=== PATIENT | male | born 1930 | race African-American/Black ===

== ENCOUNTER 2019-06-28 13:05 | Emergency (ER) | payer MEDICARE, OTHER ==
--- NOTE | 2019-06-28 13:59 | CT ---
CT BRAIN WITHOUT CONTRAST: HISTORY: Altered mental status. FINDINGS: Comparison is made with the exam of 10/15/2016. Changes of cortical atrophy and chronic small-vessel ischemic disease are again seen. The ventricula r size is stable and the basilar cisterns are patent. No evidence of acute infarct, hemorrhage, midl ine shift, or abnormal extraaxial fluid collections are noted. The bony calvarium is intact. There is mucosal disease of the ethmoid air cells. The mastoid air cells are well aerated and clear. IMPRESSION: No CT evidence of acute intracranial process. POS: [facility]
[2019-06-28 14:10] LABS: #Eosinphils 0.2 thou/uL (0.0-0.7); #Lymphocytes 1.6 thou/uL (1.20-3.40); #Monocytes 0.5 thou/uL (0.11-0.59); #Neutrophils 3.5 thou/uL (1.40-6.50); %Basophils 0.4 % (0.0-1.0); %Eosinophils 2.7 % (0.0-10.0); %Lymphocytes 27.6 % (21.0-51.0); %Monocytes 7.9 % (0.0-10.0); %Neutrophils 61.4 % (42.0-75.0); Hemoglobin 10.5 g/dL (14.0-18.0); Mean Corpuscular HGB CONC 32.2 g/dL (32.0-36.0); Mean Corpuscular Hemoglobin 28.1 pg (27.0-31.0); Mean Corpuscular Volume 87.4 fL (78.0-98.0); Mean Platelet Volume 6.8 fL (7.4-10.4); Platelet Count 259 thou/uL (130-400); RBC Distribution Width 14.8 % (11.5-14.5); Red Blood Cell (RBC) Count 3.74 mill/uL (4.70-6.10); White Blood Cell (WBC) Count 5.7 thou/uL (4.8-10.8)
[2019-06-28] MEDS ORDERED: Furosemide 40 MG/4 ML VIAL ONE (14:57)
[2019-06-28 15:41] LABS: Bacteria/HPF None Seen HPF (None Seen); Bilirubin Negative (Negative); Blood, Urine Trace (Negative); Clarity Clear (Clear); Glucose, Urine (Dipstick) Normal (Negative); Leukocyte Negative Leu/uL (Negative); Nitrite Negative (Negative); Protein, Urine (Dipstick) Negative (Neg-Trace); RBC/HPF 0-3 HPF (0-3); Squamous Epithelial 0-3 HPF (0-3); Urobilinogen Normal mg/dL (Less than 2); WBC/HPF 0-3 HPF (0-3)
== END 2019-06-28 18:12 ==
LOC: ERS 13:05
DX: I11.0 Hypertensive heart disease with heart failure (principal); I50.32 Chronic diastolic (congestive) heart failure
CPT/HCPCS: 36415; 70450; 81003; 81015; 82550; 83880; 84484; 85025; 93005; 96374; J1940

== ENCOUNTER 2019-09-14 12:11 | Emergency (ER) | payer MEDICARE, OTHER ==
--- NOTE | 2019-09-14 12:52 | RAD ---
Left shoulder 2 views: 09/14/2019 12:31 PM CLINICAL INDICATION: Left shoulder pain after fall. COMPARISON: None. FINDINGS: Bones: There is a mildly displaced obliquely oriented fracture involving the distal clavicle head. Th e medial fracture fragment is displaced cranial approximately 9 mm. There is diffuse osteopenia. Glenohumeral joint: Normal alignment. AC joint: Normal alignment. Visualized lung: Clear. Soft tissues: Within normal limits. IMPRESSION: Mildly displaced distal left clavicle fracture.
--- NOTE | 2019-09-14 12:55 | RAD ---
Chest AP view INDICATION: Fall with left shoulder pain COMPARISON: October 07, 2016 FINDINGS: Lungs: Chronic lung changes are stable. Cardiac silhouette: The cardiomediastinal silhouette appears within normal limits. Pulmonary vasculature: Normal Pleural spaces: No pleural effusion or pneumothorax is demonstrated. Upper abdomen: No abnormality seen. Osseous structures: There is a mildly displaced distal left clavicle fracture which is new from the prior exam. There is diffuse osteopenia. Additional findings: None. IMPRESSION: 1. Acute mildly displaced left distal clavicle fracture. 2. No acute cardiopulmonary abnormality.
[2019-09-14 13:20] LABS: Mean Corpuscular HGB CONC 33.9 g/dL (32.0-36.0); Mean Corpuscular Hemoglobin 29.7 pg (27.0-31.0); Mean Corpuscular Volume 87.7 fL (78.0-98.0); Mean Platelet Volume 7.9 fL (7.4-10.4); Platelet Count 192 thou/uL (130-400); RBC Distribution Width 17.5 % (11.5-14.5); Red Blood Cell (RBC) Count 3.37 mill/uL (4.70-6.10); White Blood Cell (WBC) Count 5.3 thou/uL (4.8-10.8)
[2019-09-14 13:37] LABS: ALT (SGPT) Less than 7 U/L (8-55); AST (SGOT) 15 U/L (5-34); Albumin 3.6 g/dL (3.4-4.8); Alkaline Phosphatase 65 U/L (40-110); Anion Gap 13 mmol/L (10-20); BUN (Urea Nitrogen) 20 mg/dL (8.4-25.7); Bilirubin, Total 0.4 mg/dL (0.2-1.2); Calc. Creatinine Clearance 0 mL/min (70-130); Calcium 9.1 mg/dL (7.8-10.44); Carbon Dioxide 23 mmol/L (23-31); Chloride 105 mmol/L (98-107); Estimated GFR-MDRD 74; Globulin 4.2 g/dL (2.4-3.5); Glucose 101 mg/dL (83-110); Protein, Total 7.8 g/dL (5.8-8.1); Sodium 137 mmol/L (136-145)
[2019-09-14 13:41] LABS: Anisocytosis SLIGHT = 6-15 cells (100X) (0-5/hpf); Band 8 % (5-11); Eosinophils 6 % (0-10); Lymphocytes 26 % (21-51); MDiff Complete? YES; Monocytes 7 % (0-10); Neutrophil 51 % (42-75); Ovalocytes SLIGHT = 2-5 cells (100X) (0-1/hpf); Platelet Morphology Comment Appears Adequate; Polychromasia SLIGHT = 2-3 cells (100X) (0-2/hpf); Reactive Lymphocytes 1 % (0-10)
--- NOTE | 2019-09-14 13:48 | CT ---
EXAM: CT brain without contrast HISTORY: Witnessed fall from a seated position; altered mental status COMPARISON: 06/28/2019 TECHNIQUE: Multiple contiguous axial images were obtained and a CT of the brain without contrast. FINDINGS: There are scattered hypodensities in the subcortical and periventricular white matter consi stent with small vessel ischemic disease. There is no evidence of hydrocephalus, intracranial hemorrhage, or extra-axial fluid collection. The calvarium and overlying soft tissues are unremarkable. The visualized paranasal sinuses and masto id air cells are well aerated. IMPRESSION: No evidence of acute intracranial abnormality
--- NOTE | 2019-09-14 13:51 | CT ---
EXAM: CT of the cervical spine without contrast HISTORY: Witnessed fall with head trauma and neck pain COMPARISON: None TECHNIQUE: Multiple contiguous axial images were obtained in a CT of the cervical spine without contr ast. Sagittal and coronal reformats were performed. FINDINGS: The vertebral bodies demonstrate normal height and alignment without fracture or subluxatio n. Severe degenerative changes are seen throughout the cervical spine with large bulky bridging anterior osteophytes. No prevertebral soft tissue swelling is seen. The posterior facets are well aligned. Normal alignment of the skull base with the cervical spine is seen. The lung apices and cervical soft tissues are unremarkable. IMPRESSION: No evidence of acute osseous abnormality of the cervical spine.
[2019-09-14] MEDS ORDERED: HYDROcodone/Acetaminophen 5/325 mg Tablet ONE (16:03)
== END 2019-09-14 16:58 | disposition home or self-care (01) ==
LOC: ERS 12:11
DX: S42.032A Displaced fracture of lateral end of left clavicle, initial encounter for closed fracture (principal); I10 Essential (primary) hypertension; W18.30XA Fall on same level, unspecified, initial encounter
CPT/HCPCS: 36415; 70450; 71045; 72125; 80053; 84484; 85025; 93005; L0120

== ENCOUNTER 2019-11-07 15:21 | Emergency (ER) | payer MEDICARE, OTHER ==
[2019-11-07 15:58] LABS: #Basophils 0.1 thou/uL (0.0-0.2); #Eosinphils 0.1 thou/uL (0.0-0.7); #Lymphocytes 1.9 thou/uL (1.20-3.40); #Monocytes 0.3 thou/uL (0.11-0.59); %Basophils 1.8 % (0.0-1.0); %Eosinophils 2.2 % (0.0-10.0); %Lymphocytes 43.5 % (21.0-51.0); %Monocytes 7.7 % (0.0-10.0); %Neutrophils 44.8 % (42.0-75.0); Hemoglobin 9.8 g/dL (14.0-18.0); Mean Corpuscular HGB CONC 33.3 g/dL (32.0-36.0); Mean Corpuscular Hemoglobin 29.5 pg (27.0-31.0); Mean Corpuscular Volume 88.8 fL (78.0-98.0); Mean Platelet Volume 8.9 fL (7.4-10.4); Platelet Count 187 thou/uL (130-400); Red Blood Cell (RBC) Count 3.33 mill/uL (4.70-6.10); White Blood Cell (WBC) Count 4.5 thou/uL (4.8-10.8)
--- NOTE | 2019-11-07 16:20 | CT ---
BRAIN CT WITHOUT IV CONTRAST: History: Altered mental status. Comparison: 09-14-2019 FINDINGS: There is atrophy and chronic white matter ischemic change noted. No focal mass or midline shift. No i ntra or extraaxial hemorrhage. Sinuses and mastoids are clear of acute process. IMPRESSION: No significant acute intracranial process. No mass or bleed. Stable atrophy and chronic white matter ischemic change. POS: [facility]
--- NOTE | 2019-11-07 16:40 | RAD ---
CHEST ONE VIEW: History: Dyspnea. Comparison: 09-14-2019 FINDINGS: Mild volume loss in the left lung base, chronic in nature of scarring. No pneumothorax. No effusion. Old left distal clavicular fracture. Pulmonary arteries are dilated. IMPRESSION: No acute intrathoracic abnormality. POS: HOME
[2019-11-07 16:46] LABS: ALT (SGPT) Less than 7 U/L (8-55); AST (SGOT) 19 U/L (5-34); Albumin 3.6 g/dL (3.4-4.8); Alkaline Phosphatase 73 U/L (40-110); Anion Gap 13 mmol/L (10-20); BUN (Urea Nitrogen) 19 mg/dL (8.4-25.7); Bilirubin, Total 0.2 mg/dL (0.2-1.2); Calc. Creatinine Clearance 0 mL/min (70-130); Calcium 8.5 mg/dL (7.8-10.44); Carbon Dioxide 22 mmol/L (23-31); Chloride 105 mmol/L (98-107); Estimated GFR-MDRD 68; Globulin 4.3 g/dL (2.4-3.5); Glucose 98 mg/dL (83-110); Potassium 4.8 mmol/L (3.5-5.1); Protein, Total 7.9 g/dL (5.8-8.1); Sodium 135 mmol/L (136-145)
== END 2019-11-07 20:33 | disposition home or self-care (01) ==
LOC: ERS 15:21
DX: R06.02 Shortness of breath (principal); I11.0 Hypertensive heart disease with heart failure; I50.9 Heart failure, unspecified; J44.9 Chronic obstructive pulmonary disease, unspecified
CPT/HCPCS: 70450; 71045; 80053; 85025; 93005; 94760

== ENCOUNTER 2020-01-24 10:54 | Emergency (ER) | payer MEDICARE, OTHER ==
--- NOTE | 2020-01-24 12:09 | CT ---
CT BRAIN NONCONTRAST: DATE: 01/24/2020 HISTORY: 89-year-old male status post acute head trauma from fall FINDINGS: There is no evidence of acute intra-axial or extra-axial hemorrhage. There is no midline shift or any other mass effect. There is no extra-axial fluid collection. There is no evidence of obstructive hydrocephalus. Calvarium is intact. There is diffuse brain parenchymal volume loss. There are low att enuation areas in the white matter. These are nonspecific, but in a patient of this age, they are probably chronic ischemic white matter changes due to microvascular atherosclerosis. IMPRESSION: 1) No acute intracranial findings. 2) involutional changes and chronic ischemic white matter changes.
--- NOTE | 2020-01-24 12:14 | CT ---
CT CERVICAL SPINE NONCONTRAST: DATE: 01/24/2020 HISTORY: cervical trauma: 89-year-old male status post fall FINDINGS: There are no jumped or perched facets. There is no evidence of acute fracture. The vertebral body hei ghts are maintained. There is no prevertebral soft tissue swelling. There is diffuse, severe osteopenia. There are bulky bridging osteophytes protruding into the prevertebral space at all levels from C3-4 through C7-T1. This causes ankylosis at all levels from C4-5 through C7-T1, resulting in a rigid cervical spine. These factors increase the risk for injury with minor trauma. The bulky bridg ing osteophytes anteriorly displace the posterior pharyngeal wall at C3-4. This can cause dysphagia. IMPRESSION: 1. No evidence of acute fracture or acute traumatic subluxation. 2. DISH (diffuse idiopathic skeletal hyperostosis). See above comments.
--- NOTE | 2020-01-24 12:44 | CT ---
EXAM: CT Thoracic Spine WO Con PROVIDED CLINICAL HISTORY: Injury after a fall from standing position. Tenderness to right paraspinal region midthoracic back. COMPARISON: None FINDINGS: There is anterior osseous bridging and fusion of the lower cervical vertebral bodies. Calcification o f the anterior longitudinal ligament is seen involving the thoracic spine. The vertebral body heights of the thoracic spine are within normal limits. No fracture or subluxation is seen involving the thoracic spine. Scattered degenerative changes are seen. No high-grade central canal or neural foraminal narrowing is seen throughout the thoracic spine. Visualized posteromedial ribs demonstrate no fracture. The paravertebral soft tissues have a normal appearance. Vascular calcifications are seen in thoracic and abdominal aorta. There is incomplete visualization o f the superior aspect of an infrarenal abdominal aortic aneurysm which measures 5.5 cm in maximal transverse dimension. The maximum transverse dimension on prior CT abdomen in 2017 was 5.1 cm. Calcified mediastinal and right hilar lymph nodes are present with calcified granuloma right lung bas e. There is suggestion of mild chronic interstitial lung changes at each lung base. IMPRESSION: 1. Incomplete imaging of an infrarenal abdominal aortic aneurysm. This aneurysm does measure larger i n size compared to study in 2017. 2. Mild degenerative changes in the thoracic spine, but no fracture or subluxation is identified.
== END 2020-01-24 13:57 | disposition home or self-care (01) ==
LOC: ERS 10:54
DX: S29.012A Strain of muscle and tendon of back wall of thorax, initial encounter (principal); I11.0 Hypertensive heart disease with heart failure; I50.9 Heart failure, unspecified; J44.9 Chronic obstructive pulmonary disease, unspecified; W18.30XA Fall on same level, unspecified, initial encounter
CPT/HCPCS: 70450; 72125; 72128; 94760

== ENCOUNTER 2020-03-26 16:29 | Inpatient (IN) | payer MEDICARE, MEDICAID, OTHER ==
[2020-03-26 17:19] LABS: #Monocytes 0.3 thou/uL (0.11-0.59); #Neutrophils 4.7 thou/uL (1.40-6.50); %Basophils 0.8 % (0.0-1.0); %Eosinophils 0.6 % (0.0-10.0); %Lymphocytes 16.3 % (21.0-51.0); %Monocytes 5.1 % (0.0-10.0); %Neutrophils 77.2 % (42.0-75.0); Hemoglobin 10.6 g/dL (14.0-18.0); Mean Corpuscular HGB CONC 32.6 g/dL (32.0-36.0); Mean Corpuscular Hemoglobin 29.1 pg (27.0-31.0); Mean Corpuscular Volume 89.4 fL (78.0-98.0); Mean Platelet Volume 7.6 fL (7.4-10.4); Platelet Count 185 thou/uL (130-400); RBC Distribution Width 15.5 % (11.5-14.5); Red Blood Cell (RBC) Count 3.62 mill/uL (4.70-6.10); White Blood Cell (WBC) Count 6.1 thou/uL (4.8-10.8)
--- NOTE | 2020-03-26 17:24 | RAD ---
PORTABLE CHEST: History: Syncope Comparison: 11-07-2019 FINDINGS: Heart size is within normal limits. There is some atherosclerotic changes to the aorta. The lungs are clear of any infiltrative process. IMPRESSION: No active intrathoracic disease. POS: OFF
[2020-03-26 17:40] LABS: ALT (SGPT) Less than 7 U/L (8-55); AST (SGOT) 15 U/L (5-34); Albumin 4.2 g/dL (3.4-4.8); Alkaline Phosphatase 85 U/L (40-110); Anion Gap 16 mmol/L (10-20); BUN (Urea Nitrogen) 30 mg/dL (8.4-25.7); Bilirubin, Total 0.5 mg/dL (0.2-1.2); CK (CPK) 80 U/L (30-200); Calc. Creatinine Clearance 0 mL/min (70-130); Calcium 9.4 mg/dL (7.8-10.44); Carbon Dioxide 16 mmol/L (23-31); Chloride 110 mmol/L (98-107); Estimated GFR-MDRD 33; Globulin 4.1 g/dL (2.4-3.5); Glucose 150 mg/dL (83-110); Protein, Total 8.3 g/dL (5.8-8.1); Sodium 138 mmol/L (136-145)
--- NOTE | 2020-03-26 18:42 | CT ---
CT BRAIN PERFORMED WITHOUT CONTRAST ENHANCEMENT: History: Altered mental status Comparison: 01-24-2020 FINDINGS: There is marked ventricular and sulcal prominence and chromic white matter change. There are no signs of intracerebral hemorrhage or extraaxial fluid collections. Mastoid air cells and visualized sinuse s are clear. IMPRESSION: No acute intracranial abnormalities. POS: OFF
--- NOTE | 2020-03-26 19:58 | PDOC.FPRHP ---
- History of Present Illness Chief Complaint: Dehydration/AMS History of Present Illness: This is an 89 y/o M who presented to the ED today after sitting out in the sun from approximately 9am to 3 pm today. Pt is unable to answer questions about what happened today as he does not remember so HPI is taken from conversation with daughter. Daughter states that today patient was sitting outside in the AM and was told to come inside and drink water around 12 pm. Daughter had to go run errands while granddaughter was at home with patient. When daughter came back home, patient was still sitting outside and when she went to go help him, he was sweating, altered, and was too weak to move on his own, prompting her to call EMS. He was not c/o of CP or SOB when this happened. Pt has been living with daughter and has been under her care for the last couple months. She states that he has a hx of dimentia and his mentation fluctuates but is usually able to have conversations with his family and knows everyone's names. Daughter states that other than taking a "fluid pill" and an "appetite pill" patient does not have any other medical history she is aware of. When EMS arrived his BP was hypotensive in 80/50. At this time he was given 1L of fluid and BP normalized to SBP 120. In the ER his SBP kalee to 167. ED Course: 1.5L NS - Allergies/Adverse Reactions Allergies Allergy/AdvReac Type Severity Reaction Status Date / Time No Known Drug Allergies Allergy Verified 06/09/16 18:13 - Home Medications Medication Instructions Recorded Confirmed Type Furosemide 0.5 tablet PO DAILY 03/26/20 03/26/20 History - History PMHx: -CHF -Dimentia -HTN -HLD -DM2 -Brain tumor? -Diverticulitis -COPD PSHx: -none FHx: -HTN Social: lives with daughter, had hx of 40 pack year smoking, no etoh use, former MJ use - Review of Systems General: denies: fever/chills, fatigue Eyes: denies: vision changes ENT: denies: nasal congestion Respiratory: denies: cough, congestion, shortness of breath Cardiovascular: denies: chest pain, palpitation, edema Gastrointestinal: denies: nausea, vomiting, diarrhea, constipation Genitourinary: denies: dysuria, polyuria, discharge Skin: denies: rashes, lesions, jaundice Musculoskeletal: denies: pain, tenderness, stiffness Neurological: denies: numbness, syncope Psychological: denies: anxiety, depression - Vital signs BP: 167/80, HR 77, RR 17, Temp 98.4, O2 sat 98% on RA - Physical Exam Constitutional: NAD, awake, alert and oriented, well developed HEENT: normocephalic and atraumatic, PERRLA Neck: supple Heart: RRR, normal S1/S2, no murmurs/rubs/gallops Lungs: CTAB, no respiratory distress Abdomen: soft, non-tender, bowel sounds present, no masses/distention Musculoskeletal: normal structure Neurological: no focal deficit, CN II-XII intact Skin: no rash/lesions, other (cap refill > 2 sec, skin tenting) Heme/Lymphatic: no unusual bruising or bleeding, no purpura Psychiatric: other (A&O: to person, able to name president, unable to name year , date, location) FMR H&P: Results - Labs Result Diagrams: 03/26/20 17:00 03/27/20 04:27 Lab results: WBC 6.1 thou/uL (4.8-10.8) 03/26/20 17:00 Hgb 10.6 g/dL (14.0-18.0) L 03/26/20 17:00 Hct 32.4 % (42.0-52.0) L 03/26/20 17:00 MCV 89.4 fL (78.0-98.0) 03/26/20 17:00 Plt Count 185 thou/uL (130-400) 03/26/20 17:00 Neutrophils % 77.2 % (42.0-75.0) H 03/26/20 17:00 Sodium 138 mmol/L (136-145) 03/26/20 17:00 Potassium 4.0 mmol/L (3.5-5.1) 03/26/20 17:00 Chloride 110 mmol/L (98-107) H 03/26/20 17:00 Carbon Dioxide 16 mmol/L (23-31) L 03/26/20 17:00 BUN 30 mg/dL (8.4-25.7) H 03/26/20 17:00 Creatinine 2.29 mg/dL (0.7-1.3) H 03/26/20 17:00 Glucose 150 mg/dL (83-110) H 03/26/20 17:00 Lactic Acid 2.7 mmol/L (0.5-2.2) H 03/26/20 17:00 Calcium 9.4 mg/dL (7.8-10.44) 03/26/20 17:00 Total Bilirubin 0.5 mg/dL (0.2-1.2) 03/26/20 17:00 AST 15 U/L (5-34) 03/26/20 17:00 ALT Less than 7 U/L (8-55) L 03/26/20 17:00 Alkaline Phosphatase 85 U/L (40-110) 03/26/20 17:00 Creatine Kinase 80 U/L (30-200) 03/26/20 17:00 CK-MB (CK-2) 1.0 ng/mL (0-6.6) 03/26/20 17:00 B-Natriuretic Peptide 803.0 pg/mL (0-100) H 03/26/20 17:00 Serum Total Protein 8.3 g/dL (5.8-8.1) H 03/26/20 17:00 Albumin 4.2 g/dL (3.4-4.8) 03/26/20 17:00 - Radiology Interpretation CT scan - head Status: report reviewed by me (no acute intracranial process) Chest x-ray Status: report reviewed by me (no acute cardiopulmonary process) FMR H&P: A/P - Plan 89 y/o M presents today with AMS and weakness. ## Metabolic Encephalopathy -most likely due to slight worsening of mental status on already poor orientation 2/2 hypovolemia and uremia -rehydrate and reassess mental status and symptoms ## KIRSTY 2/2 Volume Depletion -[place] 2.3 -slow hydration with IVF keeping in mind patient's CHF -repeat labs in AM ## Elevated Troponin -initial trop 0.037 -trend -repeat EKG due to indeterminate p waves ## Lactic Acidosis -LA at 2.7 -repeat -most likely due to poor perfusion ## CHF -last echo in 2015 showed grade 1 diastolic dysfuction with EF > 50% -BNP 803 -repeat ECHO -home med lasix ## Dementia -AxO x 2 is his baseline -not on any medications currently CODE: FULL VTE: Heparin DIET: Regular PCP: Kena Dispo: observation, telemetry FMR H&P: Upper Level - Plan Date/Time: 03/26/201951 IAngelo [email or web address], have evaluated this patient and agree with findings/plan as outlined by mba intern resident. Pertinent changes/additions are listed here. 89yo M with pmh of CHF presents after being found outside on a streetside bench confused. He was unable to give any history to EMS or ourselves so what we have is from chart review and discussion with daughter. He wandered outside at 9am and did not come inside until 3pm when he was found to have AMS. Apparently his baseline orientation is x2. He lives with his daughter and granddaughter. On exam he is hypertensive but otherwise has normal and stable vitals. cardiopulmonary exam unremarkable, no LE edema. Cap refill 3 seconds after 1.5L IVF A/P Metabolic Encephalopathy A- likely a slight worsening of mental status on already poor orientation 2/2 hypovolemia and uremia. He is s/p 1.5 L IVF and appears to be slightly dry still. EKG indeterminate though appears to be regular in rate and rhythm, p waves are questionable. indeterminate trop A- likely demand ischemia P- will trend Lactic acidosis A- likely 2/2 hypovolemia P- will trend CHF A- quiescent. Last Echo was in 2016 however showing EF > 50%. BNP today is 800 ( most recent 172) P- will be mindful of fluids and check volume status in AM -TTE -strict I/Os, daily weights KIRSTY A- likely 2/2 hypovolemia P- will volume rescuscitate and recheck -consider further workup if refractory to fluid rescuscitation metabolic acidosis A- slight with bicarb 16, anion gap borderline at 12, likely 2/2 uremia with hypovolemia P- IVF and recheck in AM hypovolemic shock A- BP in 80s/50s when EMS arrived at first, he is now hypertensive and stable after just 1 L IVF P- will monitor vitals Hx of Brain tumor -MD aware, likely primary reason for cognitive difficulties Hx of COPD -MD aware, though daughter denies home meds. f/u outpt CODE: FULL PCP: kena, will transfer care to [facility] in AM if pt stays another night IVF: LR 100/hr DVT ppx: heparin dispo: obs, expect less than 2 midnights Addendum - Attending - Attending Attestation Date/Time: 03/26/202124 I personally evaluated the patient and discussed the management with resident team I agree with the History, Examination, Assessment and Plan documented above with any addition or exceptions noted below. 89 yo male with multiple medical conditions presented by EMS for evaluation of altered mental status Patient outside for several hours without hydration. EMS called. Note to have physical signs of heat stroke including hypotension and tachycardia. Unsure temp. CT Brain without acute findings. CXR stable. - Metabolic encephalopathy: Due to heat stroke with dehydration. Has improved with cooling and IVFs. Continue to monitor overnight. - KIRSTY 2/2 hypovolemia: Mild uremia. BUN/Cr above baseline. Continue current IV fluids. Will slow rate down to 75 mL/hr due to HrEF. Repeat labs in AM. Monitor UOP. - Indeterminate trop: Concern due to past hx of HrEF, HTN, HLD, Dementia and recent heat stroke. Likely related to demand and KIRSTY. Nonspecific changes in EKG but no overt acute ischemic changes. - HrEF: Unsure NYHA class per symptoms. BNP above baseline and likely due to recent fluid challenge. BP now improved. Repeat labs in AM. Repeat NTBNP prior to d/c. Repeat ECHO to evaluate EF and risk for detrimental arrhythmias. Continue to tele to rule out AF. Unsure medications. No signs of congestion at this time. - Hypotension 2/2 hypovolemia: Improved. Lactic acid improved as well. - HTN: Presented with hypotension but now resolved after 1.5 Ls. Restart home meds. Monitor. - Dementia: Lives with daughter. Now back to baseline it appears. Will need refocusing to help with sundowning. - LMWH for VTE - Adjust home meds as needed for co-morbid conditions Review tele monitor. Hold IVFs in AM due to risk for congestion. Repeat NTBNP prior to d/c for prognosis. ECHO today to make sure not at risk for severe arrhythmia. Monitor for sundowning. D/C as soon as safely possibly. Diaz
[2020-03-26 20:26] LABS: Lactic Acid 2.4 mmol/L (0.5-2.2)
[2020-03-26] MEDS ORDERED: Acetaminophen 325 MG TAB PO PRN (21:24)
[2020-03-26 22:12] LABS: Troponin I 0.038 ng/mL (< 0.028)
[2020-03-26 22:31] VITALS: BMI 19.5
[2020-03-26] MEDS: Lactated Ringer's 1,000 ML IV SCH (23:15)
[2020-03-27 00:23] LABS: Troponin I 0.046 ng/mL (< 0.028)
[2020-03-27 04:43] LABS: Lactic Acid 1.5 mmol/L (0.5-2.2)
[2020-03-27 04:47] LABS: Anion Gap 16 mmol/L (10-20); BUN (Urea Nitrogen) 28 mg/dL (8.4-25.7); Calc. Creatinine Clearance 23 mL/min (70-130); Calcium 8.7 mg/dL (7.8-10.44); Carbon Dioxide 13 mmol/L (23-31); Chloride 108 mmol/L (98-107); Estimated GFR-MDRD 42; Glucose 86 mg/dL (83-110); Potassium 4.7 mmol/L (3.5-5.1); Sodium 132 mmol/L (136-145)
[2020-03-27 05:00] LABS: Troponin I 0.047 ng/mL (< 0.028)
--- NOTE | 2020-03-27 07:22 | PDOC.FM ---
- Subjective Subjective: Mr. Onofre is doing well today and has no complaints. He is oriented to person , city, president, and living situation; baseline is A&O x2. He denies dyspnea, SOB, CP. He is sitting in bed at a steep incline; he is unable to endorse/deny orthopnea. - Objective Vital Signs & Weight: Vital Signs (12 hours) Temp Pulse Resp BP Pulse Ox 03/27/20 05:29 98.5 F 73 14 100/59 L 100 03/26/20 22:31 97.1 F L 68 15 158/69 H 98 Weight Weight 59.874 kg I&O: 03/26/20 03/27/20 03/28/20 06:59 06:59 06:59 Intake Total 776 Output Total 0 Balance 776 Result Diagrams: 03/26/20 17:00 03/27/20 04:27 Phys Exam - Physical Examination Constitutional: NAD Respiratory: clear to auscultation bilateral Cardiovascular: RRR, no significant murmur Musculoskeletal: no edema (in b/l UE or LE. Dorsalis pedis pulses 1+ b/l) Psychiatric: normal affect Skin: no rash, normal turgor, cap refill <2 seconds Dx/Plan - Plan Plan: 89 y/o M who presented with AMS and weakness. Metabolic Encephalopathy - Manifestation of AMS likely 2/2 hypovolemia and uremia - Hx of dementia. Baseline is A&O x2 A&O x2 on 03/27 Hypovolemic Shock - BP in 80s/50s when EMS arrived -> SBP 178 in ED after just 1 L IVF -> SBP in normal range - Will monitor vitals - D/c IVFs today KIRSTY - Likely 2/2 volume depletion - Cr 2.3 -> 1.85 - Slow hydration with IVF because of hx of CHF - Cap refill 3s s/p 1.5L IVF -> 1.5s - Skin turgor normal Indeterminate Troponin - Initial trop 0.037 -> 0.046 -> 0.047 -> 0.048 - Trend - Initial EKG showed indeterminate p waves -> Repeat pending Lactic Acidosis - LA at 2.7 -> 1.5 - Likely 2/2 poor perfusion CHF - Last echo in 2015 showed grade 1 diastolic dysfuction with EF > 50% - BNP 803 - Repeat ECHO pending - Hold home lasix Dementia - AxO x 2 is his baseline - Not on any medications currently Metabolic Acidosis - Bicarb 16, AG borderline at 12 -> Repeat 13 and 11, respectively - Likely 2/2 uremia with hypovolemia - IVF Hx of Brain tumor - MD aware - Likely primary reason for cognitive difficulties Hx of COPD - Per chart, denied by daughter - MD aware - F/u outpt CODE: FULL VTE: Heparin DIET: Regular PCP: [facility] Dispo: observation, telemetry Addendum - Attending - Attending Attestation Date/Time: 03/27/20 0936 I personally evaluated the patient and discussed the management with the team. I agree with the History, Examination, Assessment and Plan documented above with any addition or exceptions noted below. Clear heat related illness with no cardiac symptoms. Monitor creatinine as KIRSTY is improving. Monitor Tn although I feel not related to ACS.
[2020-03-27 07:54] LABS: Troponin I 0.048 ng/mL (< 0.028)
[2020-03-27] MEDS: Heparin 5,000 UNITS/ML VIAL SC SCH ×3 (08:49→21:34)
[2020-03-27] MEDS: Lactated Ringer's 1,000 ML IV SCH (08:52)
[2020-03-27 11:40] LABS: SARS-CoV-2 MS2 Positive; SARS-CoV-2 N Gene Negative; SARS-CoV-2 S Gene Negative; SARS-CoV-2 by NAA Not Detected (NotDetected); SARS-CoV-2 orf1ab Negative
[2020-03-27 18:28] LABS: Troponin I 0.024 ng/mL (< 0.028)
--- NOTE | 2020-03-27 21:48 | EKG ---
Test Reason : Blood Pressure : / mmHG Vent. Rate : 061 BPM Atrial Rate : 061 BPM P-R Int : 368 ms QRS Dur : 094 ms QT Int : 432 ms P-R-T Axes : 076 052 064 degrees QTc Int : 434 ms Sinus rhythm with 1st degree A-V block Otherwise normal ECG When compared with ECG of 26-MAR-2020 17:00, (Unconfirmed) Previous ECG has undetermined rhythm, needs review Nonspecific T wave abnormality no longer evident in Inferior leads Nonspecific T wave abnormality no longer evident in Lateral leads Confirmed by Calin BALBUENA ([id number]) on 03/27/2020 9:48:07 PM Referred By: EFFIE Confirmed By:Calin BALBUENA
[2020-03-28 06:13] LABS: Anion Gap 14 mmol/L (10-20); BUN (Urea Nitrogen) 23 mg/dL (8.4-25.7); Calc. Creatinine Clearance 33 mL/min (70-130); Calcium 8.1 mg/dL (7.8-10.44); Carbon Dioxide 17 mmol/L (23-31); Chloride 109 mmol/L (98-107); Estimated GFR-MDRD 62; Glucose 78 mg/dL (83-110); Potassium 4.5 mmol/L (3.5-5.1); Sodium 135 mmol/L (136-145)
[2020-03-28] MEDS: Heparin 5,000 UNITS/ML VIAL SC SCH (08:14)
[2020-03-28] MEDS ORDERED: Sodium Chloride 0.9% 1,000 ML IV SCH (08:45)
--- NOTE | 2020-03-28 08:46 | PDOC.HOSPP ---
- Subjective Encounter Date: 03/28/20 Encounter Time: 08:30 Subjective: States he feels fine and has no complaints. He is oriented to person only at this time. He denies any shortness of breath or chest pain. - Objective Vital Signs & Weight: Vital Signs (12 hours) Temp Pulse Resp BP BP Pulse Ox 03/28/20 07:08 96.3 F L 62 18 101/53 L 97 03/28/20 03:22 98.3 F 65 22 H 104/54 L 98 Weight Weight 138 lb 8 oz I&O: 03/27/20 03/28/20 03/29/20 06:59 06:59 06:59 Intake Total 1826 Output Total 0 Balance 1826 Result Diagrams: 03/26/20 17:00 03/28/20 05:28 Hospitalist ROS - Medication Medications: Active Medications Generic Name Dose Route Start Last Admin Trade Name Freq PRN Reason Stop Dose Admin Heparin Sodium (Porcine) 5,000 units 03/27/20 09:00 03/28/20 08:14 Heparin SC 5,000 units TID TARAN Administration Sodium Chloride 10 ml 03/26/20 21:24 03/26/20 23:15 Flush - Normal Saline IVF 10 ml PRN PRN Administration Saline Flush - Exam General Appearance: NAD, awake alert Neck: supple, symmetric, no lymphadenopathy Heart: RRR, no murmur, no gallops, no rubs Respiratory: CTAB, no wheezes, no rales, no ronchi Gastrointestinal: soft, non-tender, non-distended, normal bowel sounds Psychiatric: normal behavior, oriented to person, flat affect Hosp A/P (1) Metabolic encephalopathy Code(s): G93.41 - METABOLIC ENCEPHALOPATHY Status: Acute (2) KIRSTY (acute kidney injury) Code(s): N17.9 - ACUTE KIDNEY FAILURE, UNSPECIFIED Status: Acute (3) Elevated troponin Code(s): R79.89 - OTHER SPECIFIED ABNORMAL FINDINGS OF BLOOD CHEMISTRY Status : Acute (4) Lactic acidosis Code(s): E87.2 - ACIDOSIS Status: Acute (5) CHF (congestive heart failure) Code(s): I50.9 - HEART FAILURE, UNSPECIFIED Status: Chronic (6) Dementia Code(s): F03.90 - UNSPECIFIED DEMENTIA WITHOUT BEHAVIORAL DISTURBANCE Status: Chronic (7) History of brain tumor Code(s): Z87.898 - PERSONAL HISTORY OF OTHER SPECIFIED CONDITIONS Status: Chronic (8) History of COPD Code(s): Z87.09 - PERSONAL HISTORY OF OTHER DISEASES OF THE RESPIRATORY SYSTEM Status: Chronic - Plan KIRSTY continues to improve No significant telemetry readings Gentle hydration today Patient oriented to person only, nursing states he is more oriented as the day goes on Obtain set of orthostatic vital signs Possible discharge this afternoon Patient discussed with Dr. John
[2020-03-28 11:14] VITALS: BP 136/83; TEMP 97.9
--- NOTE | 2020-03-28 13:05 | PDOC.EVN ---
Event Note - Event Note Event Note: I received a [employer] message as well as a page from Dr. Natanael Galindo with [employer]. Patient was discharged but is waiting for a ride home. According to her, inpatient status is appropriate for the patient because he was being evaluated/treated for AMS, dehydration, KIRSTY and as per the Medicare 2 midnight room if hospitalist services cross second midnight then inpatient is appropriate. Based on the recommendation, patient status is being changed to inpatient. She assured me that the status can be changed even after the discharge order as long as the patient has not left the hospital.
--- NOTE | 2020-03-28 14:35 | EKG ---
Test Reason : Blood Pressure : / mmHG Vent. Rate : 093 BPM Atrial Rate : 087 BPM P-R Int : 000 ms QRS Dur : 098 ms QT Int : 358 ms P-R-T Axes : 000 047 014 degrees QTc Int : 445 ms Undetermined rhythm Cannot rule out Anterior infarct , age undetermined Abnormal ECG Confirmed by OSIRIS MURPHY DO ([id number]), features editor INÉS RIVERA ([id number]) on 03/28/2020 2:34:26 PM Referred By: Confirmed By:OSIRIS MURPHY DO
--- NOTE | 2020-03-29 02:07 | DIS ---
DATE OF ADMISSION: 03/28/2020 DATE OF DISCHARGE: 03/28/2020 PRIMARY CARE PROVIDER: Javier Redding. DISCHARGE DIAGNOSES: 1. Acute on chronic stage 2 renal failure. 2. Hyponatremia. 3. Metabolic acidosis secondary to uremia. 4. Acute metabolic encephalopathy. CONDITION OF PATIENT ON THE DAY OF DISCHARGE: Stable. I assessed Mr. Onofre on the day of discharge. He denies chest pain or shortness of breath. Vital signs are stable. S1 and S2 are heard, regular. Lungs are clear to auscultation bilaterally. HOSPITAL COURSE: Mr. Onofre is a pleasant 89-year-old gentleman, who was admitted to [facility] on March 26, 2020 for acute metabolic encephalopathy and acute kidney injury secondary to volume depletion. He was admitted to Family Medicine Residency Service. He received intravenous fluids with improvement in his cognitive status as well as renal failure. 2D echocardiogram showed left ventricular ejection fraction of 45% to 50%, grade 1/3 diastolic dysfunction, inferolateral hypokinesis and mild mitral regurgitation. On the day of discharge, he has sodium of 135, potassium 4.5, blood urea nitrogen 23, and creatinine 1.33. He has been advised to follow up with primary care provider for rechecking his chem-7 in 5 to 7 days and also to manage his diastolic heart failure and systolic heart failure. ACTIVITY: As tolerated. POST ACUTE CARE FOLLOWUP: With primary care provider in 3 days. DIET: Heart healthy. DISCHARGE DESTINATION: Home. TIME SPENT: Total amount of time spent coordinating this discharge: 20 minutes. Job ID: [id number]
== END 2020-03-28 14:00 | disposition home or self-care (01) | DRG 922 ==
LOC: ERS 16:29 → 2SW 20:32 → OBSVTOIN 03-28 13:01
PROVIDERS: ADMIT Student in an Organized Health Care Education/Training Program; ATTEND Student in an Organized Health Care Education/Training Program
DX: T67.01XA Heatstroke and sunstroke, initial encounter (principal); G93.41 Metabolic encephalopathy; R57.1 Hypovolemic shock; N17.9 Acute kidney failure, unspecified; E87.2 Acidosis; F03.90 Unspecified dementia, unspecified severity, without behavioral disturbance, psychotic disturbance, mood disturbance, and anxiety; Z20.828 Contact with and (suspected) exposure to other viral communicable diseases; J44.9 Chronic obstructive pulmonary disease, unspecified; I50.9 Heart failure, unspecified; R79.89 Other specified abnormal findings of blood chemistry; E78.5 Hyperlipidemia, unspecified; E11.9 Type 2 diabetes mellitus without complications; X58.XXXA Exposure to other specified factors, initial encounter; I11.0 Hypertensive heart disease with heart failure; Z87.898 Personal history of other specified conditions; Z79.899 Other long term (current) drug therapy
CPT/HCPCS: 36415; 36416; 51701; 70450; 71045; 80048; 80053; 80307; 82550; 82553; 83605; 83735; 83880; 84484; 85025; 86850; 86900; 86901; 87635; 93005; 93010; 93306; 96360; J1644; U0003

== ENCOUNTER 2020-06-04 10:34 | Inpatient (IN) | payer MEDICARE, MEDICAID ==
--- NOTE | 2020-06-04 11:04 | RAD ---
Chest AP view INDICATION: Syncopal episodes with fall COMPARISON: Prior exam dated March 26, 2020 FINDINGS: Lungs: Chronic lung changes appear stable. There is increased airspace opacity in the left lung base . Cardiac silhouette: The cardiomediastinal silhouette appears within normal limits. Pulmonary vasculature: Normal Pleural spaces: No pleural effusion or pneumothorax is demonstrated. Upper abdomen: No abnormality seen. Osseous structures: There is stable incompletely healed distal left clavicle fracture when compared to a prior dated 03/26/2020. Additional findings: None. IMPRESSION: Patchy airspace opacity left lower lobe may reflect contusion or pneumonia. No pneumothorax demonstra alina. No definite acute osseous abnormality is evident. Incompletely healed distal left clavicle fracture is stable to the recent comparison chest radiograph dated 03/26/2020.
[2020-06-04 11:40] LABS: #Eosinphils 0.1 thou/uL (0.0-0.7); #Lymphocytes 1.5 thou/uL (1.20-3.40); #Monocytes 0.3 thou/uL (0.11-0.59); %Basophils 0.9 % (0.0-1.0); %Eosinophils 2.5 % (0.0-10.0); %Lymphocytes 37.4 % (21.0-51.0); %Monocytes 8.5 % (0.0-10.0); %Neutrophils 50.7 % (42.0-75.0); Hemoglobin 8.9 g/dL (14.0-18.0); Mean Corpuscular HGB CONC 32.3 g/dL (32.0-36.0); Mean Corpuscular Hemoglobin 29.1 pg (27.0-31.0); Mean Corpuscular Volume 90.2 fL (78.0-98.0); Mean Platelet Volume 7.5 fL (7.4-10.4); Platelet Count 148 thou/uL (130-400); Red Blood Cell (RBC) Count 3.06 mill/uL (4.70-6.10); White Blood Cell (WBC) Count 3.9 thou/uL (4.8-10.8)
[2020-06-04 11:59] LABS: ALT (SGPT) Less than 7 U/L (8-55); AST (SGOT) 14 U/L (5-34); Albumin 3.2 g/dL (3.4-4.8); Alkaline Phosphatase 69 U/L (40-110); Anion Gap 13 mmol/L (10-20); BUN (Urea Nitrogen) 26 mg/dL (8.4-25.7); Bilirubin, Total 0.3 mg/dL (0.2-1.2); Calc. Creatinine Clearance 0 mL/min (70-130); Calcium 8.2 mg/dL (7.8-10.44); Carbon Dioxide 22 mmol/L (23-31); Chloride 107 mmol/L (98-107); Estimated GFR-MDRD 62; Globulin 3.8 g/dL (2.4-3.5); Glucose 96 mg/dL (83-110); Potassium 4.6 mmol/L (3.5-5.1); Sodium 137 mmol/L (136-145)
--- NOTE | 2020-06-04 12:10 | CT ---
Exam: Head CT without contrast HISTORY: Altered mental status. Syncopal episode. COMPARISON: 03/26/2020 FINDINGS: Hemorrhage: No intraparenchymal hemorrhage or extra-axial hematoma. Brain parenchyma: Cortical corrales-white matter differentiation is preserved. No mass effect or midline shift. Basilar cisterns are patent.Chronic small vessel ischemic changes white matter. Ventricular system: Ventricles and sulci are patent and symmetric. Calvarium: Intact. Sinuses and mastoid air cells: Adequate aeration. IMPRESSION: No acute intracranial process.
--- NOTE | 2020-06-04 12:16 | CT ---
Exam: CT cervical spine without contrast HISTORY: Trauma. Pain. COMPARISON: 01/24/2020 FINDINGS: No craniocervical dissociation. Appropriate alignment of the lateral masses of C1 and C2. Intact odon toid process Appropriate alignment of the facets. There is stable straightening of cervical lordosis. Extensive bridging anterior osteophyte formation at C3-C7. Soft tissue neck structures: No mass, lymphadenopathy or hematoma. No prevertebral soft tissue swelli ng. Upper mediastinum and lung apices: Unremarkable Central spinal canal: There are varying degrees of central canal stenosis and neural foraminal narrow ing on the basis of degenerative change. The degree of central canal stenosis and foraminal stenosis is similar to the previous exam. Vertebral bodies: Cervical spine vertebral body height is maintained. No fracture. IMPRESSION: 1. No cervical spine fracture 2. Stable straightening of cervical lordosis, likely due to extensive anterior bridging osteophytes ( DISH). Stable degenerative changes of the cervical spine.
[2020-06-04] MEDS ORDERED: Dextrose 50% Abboject 50 ML SYRINGE ONE (13:01)
[2020-06-04 13:16] LABS: Bilirubin Negative (Negative); Blood, Urine Negative (Negative); Clarity Clear (Clear); Glucose, Urine (Dipstick) Normal (Negative); Ketone, Urine Negative (Negative); Leukocyte Negative Leu/uL (Negative); Nitrite Negative (Negative); Protein, Urine (Dipstick) Negative (Neg-Trace); Specific Gravity, Urine 1.009 (1.002-1.036); Urobilinogen Normal mg/dL (Less than 2); pH, Urine 5.5 (5.0-9.0)
[2020-06-04] MEDS ORDERED: cefTRIAXone\\ROCEPHIN 1 GM VIAL ONE (13:31)
[2020-06-04] MEDS ORDERED: Sodium Chloride 0.9% 100 ML ONE (13:31)
[2020-06-04] MEDS ORDERED: Azithromycin 500 MG VIAL ONE (13:59)
[2020-06-04] MEDS ORDERED: Acetaminophen 325 MG TAB PO PRN (15:33)
[2020-06-04] MEDS ORDERED: Dextrose 50% Abboject 50 ML SYRINGE SLOW IVP PRN (15:41)
[2020-06-04] MEDS ORDERED: Dextrose 5% in Water 1,000 ML IV PRN (15:41)
--- NOTE | 2020-06-04 15:52 | PDOC.HHP ---
Hospitalist HPI - History of Present Illness Found down History of Present Illness: Patient is 89-year-old male who presented to the emergency department via EMS. Patient was reportedly found down by his granddaughter this morning he was on the ground next to his walker. EMS was called and at that time the patient had a blood pressure of 88/44. He had a normal glucose. He was given 800 L of normal saline in route. The patient himself is unable to give any significant further history. He does not know why he is here and does not remember the events of this morning due to dementia. In the emergency department patient's work-up was consistent for concerning pneumonia. He also became hypothermic with a rectal temperature of 95.5 and had hypoglycemia with blood sugar of 56. Furthermore his EKG show evidence of accelerated junctional rhythm. Currently the patient reports he feels fine and denies any complaints. Hospitalist ROS - Review of Systems ROS unobtainable: due to mental status - Medication Medications: Patient is supposed to be taking Lasix daily. Hospitalist History - Past Medical History Source: old records Other Medical History: Diverticulosis, hypertension, hyperlipidemia, diabetes mellitus type 2, BPH, history of aortic aneurysm, history of pancreatic pseudocyst, history of suprasellar tumor. Of note the patient was admitted previously with a similar episode and related hypotension. At that time it was felt he was suffering from a mild heatstroke. - Past Surgical History Past Surgical History: reports: no pertinent history - Family History Family History: reports: no pertinent history - Social History Smoking Status: Former smoker Alcohol: reports: None Drugs: reports: none Living Situation: With Family - Exam General Appearance: NAD, awake alert Eye: PERRL Heart: RRR, no murmur, no gallops, no rubs, normal peripheral pulses Respiratory: CTAB, no wheezes, no rales, no ronchi, normal chest expansion, no tachypnea, normal percussion Gastrointestinal: soft, non-tender, non-distended, normal bowel sounds, no palpable masses, no hepatomegaly, no splenomegaly, no bruit Extremities: no cyanosis, no clubbing, no edema Skin: normal turgor Neurological: cranial nerve grossly intact, normal sensation to touch, no weakness, no focal deficits, no new deficit Musculoskeletal: generalized weakness Psychiatric: normal affect, normal behavior, not oriented Hospitalist Results - Labs Result Diagrams: 06/04/20 11:27 06/04/20 11:27 Lab results: WBC 3.9 thou/uL (4.8-10.8) L 06/04/20 11:27 Hgb 8.9 g/dL (14.0-18.0) L 06/04/20 11:27 Hct 27.6 % (42.0-52.0) L 06/04/20 11:27 MCV 90.2 fL (78.0-98.0) 06/04/20 11:27 Plt Count 148 thou/uL (130-400) 06/04/20 11:27 Neutrophils % 50.7 % (42.0-75.0) 06/04/20 11:27 Sodium 137 mmol/L (136-145) 06/04/20 11:27 Potassium 4.6 mmol/L (3.5-5.1) 06/04/20 11:27 Chloride 107 mmol/L (98-107) 06/04/20 11:27 Carbon Dioxide 22 mmol/L (23-31) L 06/04/20 11:27 BUN 26 mg/dL (8.4-25.7) H 06/04/20 11:27 Creatinine 1.32 mg/dL (0.7-1.3) H 06/04/20 11:27 Glucose 96 mg/dL (83-110) 06/04/20 11:27 Lactic Acid 1.6 mmol/L (0.5-2.2) 06/04/20 13:56 Calcium 8.2 mg/dL (7.8-10.44) 06/04/20 11:27 Total Bilirubin 0.3 mg/dL (0.2-1.2) 06/04/20 11:27 AST 14 U/L (5-34) 06/04/20 11:27 ALT Less than 7 U/L (8-55) L 06/04/20 11:27 Alkaline Phosphatase 69 U/L (40-110) 06/04/20 11:27 Creatine Kinase 76 U/L (30-200) 06/04/20 11:27 Troponin I Less than 0.010 ng/mL (< 0.028) 06/04/20 11:27 Serum Total Protein 7.0 g/dL (5.8-8.1) 06/04/20 11:27 Albumin 3.2 g/dL (3.4-4.8) L 06/04/20 11:27 Urine Ketones Negative mg/dL (Negative) 06/04/20 12:42 Urine Blood Negative (Negative) 06/04/20 12:42 Urine Nitrite Negative (Negative) 06/04/20 12:42 Ur Leukocyte Esterase Negative Rebekah/uL (Negative) 06/04/20 12:42 - EKG Interpretation EKG: Junctional rhythm with rate in the 50s - Radiology Interpretation Chest x-ray Status: report reviewed by me (Patchy airspace opacity left lower lobe may reflect contusion or pneumonia. Incompletely healed distal left clavicle fracture stable compared to recent x-ray of 03/26/2020.) CT scan - head Status: report reviewed by me (No acute findings) Other Status: report reviewed by me (CT C-spine negative) Hospitalist H&P A/P - Problem (1) Sepsis Code(s): A41.9 - SEPSIS, UNSPECIFIED ORGANISM Status: Acute (2) Pneumonia Code(s): J18.9 - PNEUMONIA, UNSPECIFIED ORGANISM Status: Acute (3) Accelerated junctional rhythm Code(s): I49.8 - OTHER SPECIFIED CARDIAC ARRHYTHMIAS Status: Acute (4) Syncopal episodes Code(s): R55 - SYNCOPE AND COLLAPSE Status: Acute Qualifiers: Syncope type: unspecified Qualified Code(s): R55 - Syncope and collapse (5) Hypoglycemia Code(s): E16.2 - HYPOGLYCEMIA, UNSPECIFIED Status: Acute (6) Hypothermia Code(s): T68.XXXA - HYPOTHERMIA, INITIAL ENCOUNTER Status: Acute (7) Anemia Code(s): D64.9 - ANEMIA, UNSPECIFIED Status: Chronic Qualifiers: Anemia type: unspecified cause Qualified Code(s): D64.9 - Anemia, unspecified (8) Dementia Code(s): F03.90 - UNSPECIFIED DEMENTIA WITHOUT BEHAVIORAL DISTURBANCE Status: Chronic (9) History of COPD Code(s): Z87.09 - PERSONAL HISTORY OF OTHER DISEASES OF THE RESPIRATORY SYSTEM Status: Chronic (10) History of brain tumor Code(s): Z87.898 - PERSONAL HISTORY OF OTHER SPECIFIED CONDITIONS Status: Chronic - Plan Plan: Sepsis: Based on hypothermia and low white blood cell count. Evidence of infection with pneumonia. Lactic acid is unremarkable. Patient has received IV fluid re suscitation in the emergency department. He has received Rocephin and azithromycin. We will continue with antibiotic coverage and follow cultures. His blood pressure was somewhat soft on admission but appeared to improve with fluids. Pneumonia: Patient has evidence of potential infiltrate as well as hypothermia and low white cell count. Covid test is pending. Continue coverage with Rocephin and azithromycin. He currently shows no signs of hypoxia. Hypothermia: Patient had a rectal temperature of 95.5 in the emergency department. He is on a warming blanket and appears to be doing well. May be related to hypoglycemia or sepsis. Continue warming measures as needed. TSH was normal Hypoglycemia: Episodic. Patient is on no medications that should cause hypoglycemia. Could be related to underlying infection. He did receive 1 amp of D50. TSH was normal Syncope: Unclear if the patient truly had a syncopal episode or just a fall. He does have some evidence of accelerated junctional rhythm intermixed with sinus bradycardia. Does not appear that his heart rate has dropped into the 40s as of yet although this could potentially be related to his syncopal episode. Will consult cardiology. Continue telemetry. Continue troponin trending. TSH was normal. Possible he could have had another episode of hypoglycemia as well. Accelerated junctional rhythm: Appears to be mixed with some sinus bradycardia. He is on no rate controlling medications. Cardiology consult. Anemia: Patient has some history of anemia with variable hemoglobins. He has previously had a work-up which only revealed mildly decreased folate. Will initiate folate and heme check stools. Dementia: Patient remains confused but pleasant. History of COPD: Appears to be stable does not appear to be having any breathing issues. 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 Will need outpatient follow-up.
[2020-06-04] MEDS ORDERED: Ondansetron PF 4 MG/2 ML Vial IVP PRN (20:45)
[2020-06-04] MEDS ORDERED: Ondansetron ODT 4 MG TAB SL PRN (20:45)
[2020-06-04 21:34] LABS: SARS-CoV-2 MS2 Positive; SARS-CoV-2 N Gene Negative; SARS-CoV-2 S Gene Negative; SARS-CoV-2 by NAA Not Detected (NotDetected); SARS-CoV-2 orf1ab Negative
[2020-06-04] MEDS: Famotidine 20 MG TAB PO SCH (22:02)
--- NOTE | 2020-06-05 08:33 | PDOC.HOSPP ---
- Subjective Encounter Date: 06/05/20 Encounter Time: 11:50 Subjective: Patient without complaints. Confused. - Objective Vital Signs & Weight: Vital Signs (12 hours) Temp Pulse Resp BP Pulse Ox 06/05/20 07:37 98.3 F 71 12 127/62 99 06/05/20 04:20 97.7 F 68 102/59 L 96 06/05/20 00:24 100 06/04/20 20:43 97.8 F 72 16 157/67 H 100 Weight Weight 150 lb 12.739 oz I&O: 06/04/20 06/05/20 06/06/20 06:59 06:59 06:59 Intake Total 1060 Output Total 175 Balance 885 Result Diagrams: 06/04/20 11:27 06/04/20 11:27 Additional Labs: Accuchecks 06/05/20 06/05/20 06/04/20 04:09 00:11 21:17 POC Glucose 68 L 74 73 Hospitalist ROS - Review of Systems ROS unobtainable: due to mental status - Medication Medications: Active Medications Generic Name Dose Route Start Last Admin Trade Name Freq PRN Reason Stop Dose Admin Famotidine 20 mg 06/04/20 21:00 06/04/20 22:02 Famotidine 20 Mg Tab PO 20 mg BID TARAN Administration Doxycycline Hyclate 100 mg/ 100 mls @ 100 mls/hr 06/04/20 21:00 06/04/20 22:02 Sodium Chloride IVPB 100 mls Q12HR TARAN Administration - Exam General Appearance: NAD, awake alert ENT: moist mucosa Heart: RRR, no murmur, no gallops, no rubs Respiratory: CTAB, no wheezes, no rales, no ronchi Gastrointestinal: soft, non-tender, non-distended, normal bowel sounds Psychiatric: normal affect, normal behavior Hosp A/P (1) Sepsis Code(s): A41.9 - SEPSIS, UNSPECIFIED ORGANISM Status: Acute (2) Pneumonia Code(s): J18.9 - PNEUMONIA, UNSPECIFIED ORGANISM Status: Acute Qualifiers: Laterality: left Lung location: lower lobe of lung (3) Accelerated junctional rhythm Code(s): I49.8 - OTHER SPECIFIED CARDIAC ARRHYTHMIAS Status: Acute (4) Syncopal episodes Code(s): R55 - SYNCOPE AND COLLAPSE Status: Acute Qualifiers: Syncope type: unspecified Qualified Code(s): R55 - Syncope and collapse (5) Hypoglycemia Code(s): E16.2 - HYPOGLYCEMIA, UNSPECIFIED Status: Acute (6) Hypothermia Code(s): T68.XXXA - HYPOTHERMIA, INITIAL ENCOUNTER Status: Resolved (7) Anemia Code(s): D64.9 - ANEMIA, UNSPECIFIED Status: Chronic Qualifiers: Anemia type: unspecified cause (8) Dementia Code(s): F03.90 - UNSPECIFIED DEMENTIA WITHOUT BEHAVIORAL DISTURBANCE Status: Chronic (9) History of COPD Code(s): Z87.09 - PERSONAL HISTORY OF OTHER DISEASES OF THE RESPIRATORY SYSTEM Status: Chronic (10) History of brain tumor Code(s): Z87.898 - PERSONAL HISTORY OF OTHER SPECIFIED CONDITIONS Status: Chronic - Plan Sepsis: Based on hypothermia and low white blood cell count. Evidence of infection with pneumonia. Lactic acid is unremarkable. Patient has received IV fluid resuscitation in the emergency department. He has received Rocephin and azithromycin. We will continue with antibiotic coverage and follow cultures. His blood pressure was somewhat soft on admission but appeared to improve with fluids. Pneumonia: Patient has evidence of potential infiltrate as well as hypothermia and low white cell count. Covid test is pending. Continue coverage with Rocephin and doxycycline. He currently shows no signs of hypoxia. Hypothermia: Patient had a rectal temperature of 95.5 in the emergency department- resolved now. TSH was normal Hypoglycemia: Episodic. Patient is on no medications that should cause hypoglycemia. Could be related to underlying infection. He did receive 1 amp of D50. TSH was normal Syncope: Unclear if the patient truly had a syncopal episode or just a fall. He does have some evidence of accelerated junctional rhythm intermixed with sinus bradycardia. Does not appear that his heart rate has dropped into the 40s as of yet although this could potentially be related to his syncopal episode. Will consult cardiology. Continue telemetry. Continue troponin trending. TSH was normal. Possible he could have had another episode of hypoglycemia as well. Accelerated junctional rhythm: Appears to be mixed with some sinus bradycardia. He is on no rate controlling medications. Cardiology consult. Anemia: Patient has some history of anemia with variable hemoglobins. He has previously had a work-up which only revealed mildly decreased folate. Will initiate folate and heme check stools. Dementia: Patient remains confused but pleasant. History of COPD: Appears to be stable does not appear to be having any breathing issues. 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 Will need outpatient follow-up.
[2020-06-05] MEDS ORDERED: Famotidine 20 MG TAB PO SCH (09:00)
[2020-06-05] MEDS: Famotidine 20 MG TAB PO SCH (09:33)
[2020-06-05] MEDS ORDERED: cefTRIAXone\\ROCEPHIN 1 GM in Sodium Chloride 0.9% 100 ML IVPB SCH (14:00)
[2020-06-05] MEDS: Enoxaparin Sodium 40 MG/0.4 ML SYRINGE SC SCH (17:48)
[2020-06-05] MEDS: cefTRIAXone\\ROCEPHIN 1 GM in Sodium Chloride 0.9% 100 ML IVPB SCH (17:49)
--- NOTE | 2020-06-05 20:58 | CON ---
DATE OF CONSULTATION: HISTORY OF PRESENT ILLNESS: Radha Onofre is an 89-year-old black male without any previous cardiac problems. He was found down at home by his granddaughter yesterday morning next to his walker. Mr. Onofre does not recall what happened, but does have dementia. He does state at times he does feel dizzy and lightheaded. Blood pressure is 88/44, received IV fluids in the emergency room. He denies any chest discomfort, shortness of breath, cough, fever, or leg edema. He was somewhat hypothermic with a rectal temperature of 95.5. His admission EKG showed junctional rhythm with rate of 53 per minute. PAST MEDICAL HISTORY: Dementia, diverticulosis, hyperlipidemia, diabetes mellitus, history of abdominal aortic aneurysm (4.[address] scan in 2017), pancreatic pseudocyst, history of suprasellar tumor. PAST SURGICAL HISTORY: The patient denies any. MEDICATIONS: Furosemide 10 mg p.r.n. ALLERGIES: NONE. SOCIAL HISTORY: Smoked a pack per day, but states he stopped 2 years ago. He also states he drank very heavily, but stopped 2 years ago. REVIEW OF SYSTEMS: Otherwise, unremarkable. PHYSICAL EXAMINATION: VITAL SIGNS: Blood pressure 160/70, pulse of 70. HEENT: PERRL. NECK: Supple. CHEST: Clear. CARDIAC: S1 and S2 normal without any S3, S4, or murmurs. ABDOMEN: Normal bowel sounds without tenderness or organomegaly. EXTREMITIES: Reveal no clubbing, cyanosis, or edema. NEUROLOGIC: Grossly intact. SKIN: Warm and dry. LABORATORY DATA: EKG on admission revealed junctional rhythm with a rate of 53 per minute, otherwise unremarkable EKG. He has had episodes of junctional escape rhythm since being admitted. 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 Chest x-ray reveals possible left lower lobe infiltrate. Head CT revealed no acute process. Hemoglobin 8.9, hematocrit 27.6, white count 3900, platelets 148,000. Initial glucose was 56. Troponin I is normal. Sodium 137, potassium 4.6, chloride 107, carbon dioxide 22, BUN 26, creatinine 1.32. CK 76. Echocardiogram revealed ejection fraction of 50% to 55% with hypokinesis of the basal inferior wall, moderate left atrial enlargement, moderate mitral regurgitation, aortic sclerosis, and mild tricuspid regurgitation. IMPRESSION: 1. Fall versus syncope at home. 2. Junctional bradycardia as well as finding of Mobitz type I and II second- degree AV block. Certainly this could contribute to lightheadedness, dizziness, or syncope. 3. Dementia. 4. History of hypertension. 5. History of hypercholesterolemia. 6. History of diabetes. 7. Former smoker. 8. Former EtOH use. 9. Anemia. 10. Chronic kidney disease. PLAN: At the present time, there was some concern regarding possible pneumonia and sepsis. He is currently on antibiotic treatment and cultures thus far negative. We will need to continue for another 1 or 2 days to see if indeed he does have sepsis. Consideration will be given to pacemaker insertion once his possible infectious process is ruled out or resolved. Further discussion will be held with the patient and his daughter. Job ID: [id number] [facility] HOSPITALSamson
[2020-06-05] MEDS ORDERED: FLU VACC QS2020-21(65YR UP)/PF 240 MCG/0.7 ML SYRINGE IM ONE (21:00)
[2020-06-05] MEDS ORDERED: ALPRAZolam 0.5 MG TAB PO SCH (23:45)
[2020-06-06 04:57] LABS: #Eosinphils 0.1 thou/uL (0.0-0.7); #Lymphocytes 1.5 thou/uL (1.20-3.40); #Monocytes 0.3 thou/uL (0.11-0.59); #Neutrophils 2.2 thou/uL (1.40-6.50); %Basophils 0.6 % (0.0-1.0); %Eosinophils 3.4 % (0.0-10.0); %Lymphocytes 36.5 % (21.0-51.0); %Monocytes 7.2 % (0.0-10.0); %Neutrophils 52.3 % (42.0-75.0); Hemoglobin 8.5 g/dL (14.0-18.0); Mean Corpuscular HGB CONC 32.8 g/dL (32.0-36.0); Mean Corpuscular Hemoglobin 29.5 pg (27.0-31.0); Platelet Count 143 thou/uL (130-400); RBC Distribution Width 16.1 % (11.5-14.5); Red Blood Cell (RBC) Count 2.89 mill/uL (4.70-6.10); White Blood Cell (WBC) Count 4.2 thou/uL (4.8-10.8)
[2020-06-06 05:17] LABS: Anion Gap 13 mmol/L (10-20); BUN (Urea Nitrogen) 18 mg/dL (8.4-25.7); Calc. Creatinine Clearance 45 mL/min (70-130); Calcium 8.3 mg/dL (7.8-10.44); Carbon Dioxide 21 mmol/L (23-31); Chloride 109 mmol/L (98-107); Estimated GFR-MDRD 77; Glucose 81 mg/dL (83-110); Potassium 4.7 mmol/L (3.5-5.1); Sodium 138 mmol/L (136-145)
--- NOTE | 2020-06-06 08:30 | PDOC.HOSPP ---
- Subjective Encounter Date: 06/06/20 Encounter Time: 09:50 Subjective: Patient without complaint this morning. No fever. - Objective Vital Signs & Weight: Vital Signs (12 hours) Temp Pulse Resp BP Pulse Ox 06/06/20 06:00 99 F 69 162/80 H 99 06/05/20 22:00 97.7 F 71 18 162/72 H 99 Weight Admit Weight 139 lb 12.369 oz Weight 150 lb 12.739 oz I&O: 06/05/20 06/06/20 06/07/20 06:59 06:59 06:59 Intake Total 1060 1140 Output Total 175 250 Balance 885 890 Result Diagrams: 06/06/20 04:05 06/06/20 04:05 Additional Labs: Accuchecks 06/06/20 06/06/20 06/05/20 04:05 00:20 20:26 POC Glucose 82 80 98 06/05/20 06/05/20 06/05/20 16:41 12:09 09:26 POC Glucose 69 L 63 L 77 06/04/20 06/04/20 06/04/20 17:53 14:12 13:00 POC Glucose 91 169 H 56 L* Hospitalist ROS - Review of Systems ROS unobtainable: due to mental status - Medication Medications: Active Medications Generic Name Dose Route Start Last Admin Trade Name Fercho PRN Reason Stop Dose Admin Enoxaparin Sodium 40 mg 06/05/20 09:00 06/05/20 17:48 Enoxaparin Sodium 40 Mg/0.4 Ml Syringe SC Not Given 0900 TARAN Doxycycline Hyclate 100 mg/ 100 mls @ 100 mls/hr 06/04/20 21:00 06/05/20 21:01 Sodium Chloride IVPB 100 mls Q12HR TARAN Administration Ceftriaxone Sodium 1 gm/ 100 mls @ 200 mls/hr 06/05/20 17:00 06/05/20 17:49 Sodium Chloride IVPB 100 mls 1700 TARAN Administration - Exam General Appearance: NAD, awake alert ENT: moist mucosa Heart: RRR, no murmur, no gallops, no rubs Respiratory: CTAB, no wheezes, no rales, no ronchi Gastrointestinal: soft, non-tender, non-distended, normal bowel sounds Psychiatric: normal affect, normal behavior Hosp A/P (1) Sepsis Code(s): A41.9 - SEPSIS, UNSPECIFIED ORGANISM Status: Acute (2) Pneumonia Code(s): J18.9 - PNEUMONIA, UNSPECIFIED ORGANISM Status: Acute Qualifiers: Laterality: left Lung location: lower lobe of lung (3) Accelerated junctional rhythm Code(s): I49.8 - OTHER SPECIFIED CARDIAC ARRHYTHMIAS Status: Acute (4) Syncopal episodes Code(s): R55 - SYNCOPE AND COLLAPSE Status: Acute Qualifiers: Syncope type: unspecified Qualified Code(s): R55 - Syncope and collapse (5) Hypoglycemia Code(s): E16.2 - HYPOGLYCEMIA, UNSPECIFIED Status: Acute (6) Hypothermia Code(s): T68.XXXA - HYPOTHERMIA, INITIAL ENCOUNTER Status: Resolved (7) Anemia Code(s): D64.9 - ANEMIA, UNSPECIFIED Status: Chronic Qualifiers: Anemia type: unspecified cause (8) Dementia Code(s): F03.90 - UNSPECIFIED DEMENTIA WITHOUT BEHAVIORAL DISTURBANCE Status: Chronic (9) History of COPD Code(s): Z87.09 - PERSONAL HISTORY OF OTHER DISEASES OF THE RESPIRATORY SYSTEM Status: Chronic (10) History of brain tumor Code(s): Z87.898 - PERSONAL HISTORY OF OTHER SPECIFIED CONDITIONS Status: Chronic - Plan Sepsis: Based on hypothermia and low white blood cell count. Evidence of infection with pneumonia. Lactic acid is unremarkable. Patient has received IV fluid resuscitation in the emergency department. He has received Rocephin and azithromycin in the ER. We will continue with antibiotic coverage and follow cultures. Blood pressure, temp, vitals have been stable. WBC count improving. Pneumonia: Patient has evidence of potential infiltrate as well as hypothermia and low white cell count. Covid test is pending. Continue coverage with Rocephin and doxycycline. He currently shows no signs of hypoxia. Hypothermia: Patient had a rectal temperature of 95.5 in the emergency department- resolved now. TSH was normal Hypoglycemia: Episodic. Patient is on no medications that should cause hypoglycemia. Could be related to underlying infection. He did receive 1 amp of D50. TSH was normal Syncope: Unclear if the patient truly had a syncopal episode or just a fall. He does have some evidence of accelerated junctional rhythm intermixed with sinus bradycardia. Does not appear that his heart rate has dropped into the 40s as of yet although this could potentially be related to his syncopal episode. Will consult cardiology. Continue telemetry. Continue troponin trending. TSH was normal. Possible he could have had another episode of hypoglycemia as well. Accelerated junctional rhythm: Appears to be mixed with some sinus bradycardia. He is on no rate controlling medications. Cardiology consult. Plan for pacemaker once sepsis resolved. Anemia: Patient has some history of anemia with variable hemoglobins. He has previously had a work-up which only revealed mildly decreased folate. Will initiate folate and heme check stools. Dementia: Patient remains confused but pleasant. History of COPD: Appears to be stable does not appear to be having any breathing issues. 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 Will need outpatient follow-up.
[2020-06-06] MEDS: Famotidine 20 MG TAB PO SCH (09:10)
[2020-06-06] MEDS: Enoxaparin Sodium 40 MG/0.4 ML SYRINGE SC SCH (09:11)
[2020-06-06] MEDS: cefTRIAXone\\ROCEPHIN 1 GM in Sodium Chloride 0.9% 100 ML IVPB SCH (17:34)
[2020-06-07 04:51] LABS: Cardiac Risk 5.6 (Less than 4.5)
--- NOTE | 2020-06-07 07:56 | PDOC.HOSPP ---
- Subjective Encounter Date: 06/07/20 Encounter Time: 09:30 Subjective: No complaints. No events overnight. Sitter present in room. - Objective Vital Signs & Weight: Vital Signs (12 hours) Temp Pulse Resp BP Pulse Ox 06/07/20 04:00 97.8 F 66 16 151/70 H 94 L Weight Admit Weight 139 lb 12.369 oz Weight 150 lb 12.739 oz I&O: 06/06/20 06/07/20 06/08/20 06:59 06:59 06:59 Intake Total 1140 850 Output Total 250 Balance 890 850 Result Diagrams: 06/06/20 04:05 06/06/20 04:05 Additional Labs: Accuchecks 06/07/20 06/07/20 06/06/20 06:07 04:31 23:53 POC Glucose 77 72 85 06/06/20 06/06/20 06/06/20 16:53 12:52 09:03 POC Glucose 100 94 53 L* Hospitalist ROS - Review of Systems ROS unobtainable: due to mental status - Medication Medications: Active Medications Generic Name Dose Route Start Last Admin Trade Name Freq PRN Reason Stop Dose Admin Enoxaparin Sodium 40 mg 06/05/20 09:00 06/06/20 09:11 Enoxaparin Sodium 40 Mg/0.4 Ml Syringe SC 40 mg 0900 TARAN Administration Famotidine 20 mg 06/06/20 09:00 06/06/20 09:10 Famotidine 20 Mg Tab PO 20 mg DAILY TARAN Administration Doxycycline Hyclate 100 mg/ 100 mls @ 100 mls/hr 06/04/20 21:00 06/06/20 21:37 Sodium Chloride IVPB 100 mls Q12HR TARAN Administration Ceftriaxone Sodium 1 gm/ 100 mls @ 200 mls/hr 06/05/20 17:00 06/06/20 17:34 Sodium Chloride IVPB 100 mls 1700 TARAN Administration - Exam General Appearance: NAD, awake alert ENT: moist mucosa Heart: RRR, no murmur, no gallops, no rubs Respiratory: CTAB, no wheezes, no rales, no ronchi Gastrointestinal: soft, non-tender, non-distended, normal bowel sounds Psychiatric: normal affect, normal behavior, not oriented Hosp A/P (1) Sepsis Code(s): A41.9 - SEPSIS, UNSPECIFIED ORGANISM Status: Acute (2) Pneumonia Code(s): J18.9 - PNEUMONIA, UNSPECIFIED ORGANISM Status: Acute Qualifiers: Laterality: left Lung location: lower lobe of lung (3) Accelerated junctional rhythm Code(s): I49.8 - OTHER SPECIFIED CARDIAC ARRHYTHMIAS Status: Acute (4) Syncopal episodes Code(s): R55 - SYNCOPE AND COLLAPSE Status: Acute Qualifiers: Syncope type: unspecified Qualified Code(s): R55 - Syncope and collapse (5) Hypoglycemia Code(s): E16.2 - HYPOGLYCEMIA, UNSPECIFIED Status: Resolved (6) Hypothermia Code(s): T68.XXXA - HYPOTHERMIA, INITIAL ENCOUNTER Status: Resolved (7) Anemia Code(s): D64.9 - ANEMIA, UNSPECIFIED Status: Chronic Qualifiers: Anemia type: unspecified cause (8) Dementia Code(s): F03.90 - UNSPECIFIED DEMENTIA WITHOUT BEHAVIORAL DISTURBANCE Status: Chronic (9) History of COPD Code(s): Z87.09 - PERSONAL HISTORY OF OTHER DISEASES OF THE RESPIRATORY SYSTEM Status: Chronic (10) History of brain tumor Code(s): Z87.898 - PERSONAL HISTORY OF OTHER SPECIFIED CONDITIONS Status: Chronic - Plan Sepsis: Based on hypothermia and low white blood cell count. Evidence of infection with pneumonia. Lactic acid is unremarkable. Patient has received IV fluid resuscitation in the emergency department. He has received Rocephin and azithromycin in the ER. We will continue with antibiotic coverage and follow cultures. Blood pressure, temp, vitals have been stable. WBC count improving. Pneumonia: Patient has evidence of potential infiltrate as well as hypothermia and low white cell count. Covid test is pending. Continue coverage with Rocephin and doxycycline. He currently shows no signs of hypoxia. Hypothermia: Patient had a rectal temperature of 95.5 in the emergency department- resolved now. TSH was normal Hypoglycemia: Episodic. Patient is on no medications that should cause hypoglycemia. Could be related to underlying infection. He did receive 1 amp of D50. TSH was normal. Been relatively stable. Lowest 61 recently. Syncope: Unclear if the patient truly had a syncopal episode or just a fall. He does have some evidence of accelerated junctional rhythm intermixed with sinus bradycardia. Does not appear that his heart rate has dropped into the 40s as of yet although this could potentially be related to his syncopal episode. Will consult cardiology. Continue telemetry. Continue troponin trending. TSH was normal. Possible he could have had another episode of hypoglycemia as well. Accelerated junctional rhythm: Appears to be mixed with some sinus bradycardia. He is on no rate controlling medications. Cardiology consult. Plan for pacemaker once sepsis resolved. Hyperlipidemia: Start statin Anemia: Patient has some history of anemia with variable hemoglobins. He has previously had a work-up which only revealed mildly decreased folate. Will initiate folate and heme check stools. Dementia: Patient remains confused but pleasant. History of COPD: Appears to be stable does not appear to be having any breathing issues. 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 Will need outpatient follow-up.
[2020-06-07] MEDS: Enoxaparin Sodium 40 MG/0.4 ML SYRINGE SC SCH (08:26)
[2020-06-07] MEDS: Famotidine 20 MG TAB PO SCH (08:26)
[2020-06-07] MEDS: cefTRIAXone\\ROCEPHIN 1 GM in Sodium Chloride 0.9% 100 ML IVPB SCH (16:33)
[2020-06-07] MEDS: Atorvastatin Calcium 40 MG TAB PO SCH (20:42)
[2020-06-08 04:07] LABS: #Eosinphils 0.2 thou/uL (0.0-0.7); #Lymphocytes 1.6 thou/uL (1.20-3.40); #Monocytes 0.4 thou/uL (0.11-0.59); %Basophils 0.3 % (0.0-1.0); %Eosinophils 4.7 % (0.0-10.0); %Lymphocytes 38.6 % (21.0-51.0); %Monocytes 8.5 % (0.0-10.0); %Neutrophils 47.9 % (42.0-75.0); Hemoglobin 8.7 g/dL (14.0-18.0); Mean Corpuscular HGB CONC 33.6 g/dL (32.0-36.0); Mean Corpuscular Volume 92.3 fL (78.0-98.0); Mean Platelet Volume 7.5 fL (7.4-10.4); Platelet Count 154 thou/uL (130-400); RBC Distribution Width 16.1 % (11.5-14.5); Red Blood Cell (RBC) Count 2.79 mill/uL (4.70-6.10); White Blood Cell (WBC) Count 4.3 thou/uL (4.8-10.8)
[2020-06-08 04:31] LABS: Anion Gap 13 mmol/L (10-20); BUN (Urea Nitrogen) 19 mg/dL (8.4-25.7); Calc. Creatinine Clearance 46 mL/min (70-130); Calcium 8.3 mg/dL (7.8-10.44); Carbon Dioxide 23 mmol/L (23-31); Chloride 106 mmol/L (98-107); Estimated GFR-MDRD 79; Glucose 98 mg/dL (83-110); Potassium 4.5 mmol/L (3.5-5.1); Sodium 137 mmol/L (136-145)
[2020-06-08] MEDS ORDERED: Gentamicin 80 MG/2 ML VIAL ONE (06:39)
[2020-06-08] MEDS ORDERED: CEFAZOLIN 1 GM VIAL ONE (06:39)
[2020-06-08] MEDS ORDERED: Lidocaine 1% (PF) 30 ML VIAL ONE ×2 (06:40→07:17)
[2020-06-08] MEDS ORDERED: Midazolam HCl 2 mg/2 ml Vial ONE (07:00)
[2020-06-08] MEDS ORDERED: Fentanyl 100 MCG/2 ML VIAL ONE (07:00)
[2020-06-08] MEDS ORDERED: Acetaminophen/Codeine 30-300mg Tablet PO PRN (08:41)
--- NOTE | 2020-06-08 09:00 | PDOC.HOSPP ---
- Subjective Encounter Date: 06/08/20 Encounter Time: 11:30 Subjective: Patient without complaints. Had pacemaker placed his morning. - Objective Vital Signs & Weight: Vital Signs (12 hours) Temp Pulse Resp BP Pulse Ox 06/08/20 08:41 99 06/08/20 03:25 98.7 F 69 16 164/72 H 99 Weight Admit Weight 139 lb 12.369 oz Weight 150 lb 12.739 oz I&O: 06/07/20 06/08/20 06/09/20 06:59 06:59 06:59 Intake Total 850 437 Output Total 420 Balance 850 17 Result Diagrams: 06/08/20 03:33 06/08/20 03:33 Additional Labs: Accuchecks 06/08/20 06/08/20 06/07/20 04:16 00:05 20:35 POC Glucose 98 106 H 107 H 06/07/20 06/07/20 06/07/20 16:40 12:11 10:08 POC Glucose 117 H 95 93 06/06/20 20:05 POC Glucose 92 Hospitalist ROS - Review of Systems ROS unobtainable: due to mental status - Medication Medications: Active Medications Generic Name Dose Route Start Last Admin Trade Name Freq PRN Reason Stop Dose Admin Atorvastatin Calcium 40 mg 06/07/20 21:00 06/07/20 20:42 Atorvastatin Calcium 40 Mg Tab PO 40 mg HS TARAN Administration Enoxaparin Sodium 40 mg 06/05/20 09:00 06/07/20 08:26 Enoxaparin Sodium 40 Mg/0.4 Ml Syringe SC 40 mg 0900 TARAN Administration Famotidine 20 mg 06/06/20 09:00 06/07/20 08:26 Famotidine 20 Mg Tab PO 20 mg DAILY TARAN Administration Doxycycline Hyclate 100 mg/ 100 mls @ 100 mls/hr 06/04/20 21:00 06/07/20 20:41 Sodium Chloride IVPB 100 mls Q12HR TARAN Administration Ceftriaxone Sodium 1 gm/ 100 mls @ 200 mls/hr 06/05/20 17:00 06/07/20 16:33 Sodium Chloride IVPB 100 mls 1700 TARAN Administration Sodium Chloride 10 ml 06/07/20 21:00 06/07/20 20:42 Flush - Normal Saline 10 Ml Syringe IVF 10 ml Q12HR TARAN Administration - Exam General Appearance: NAD, awake alert ENT: moist mucosa Heart: RRR, no murmur, no gallops, no rubs Heart - other findings: left upper chest with pacemaker, incision closed, no drainage/erythema Respiratory: CTAB, no wheezes, no rales, no ronchi Gastrointestinal: soft, non-tender, non-distended, normal bowel sounds Extremities: no edema Psychiatric: normal affect, normal behavior, not oriented. negative: A&O x 3 Hosp A/P (1) Sepsis Code(s): A41.9 - SEPSIS, UNSPECIFIED ORGANISM Status: Resolved (2) Pneumonia Code(s): J18.9 - PNEUMONIA, UNSPECIFIED ORGANISM Status: Acute Qualifiers: Laterality: left Lung location: lower lobe of lung (3) Accelerated junctional rhythm Code(s): I49.8 - OTHER SPECIFIED CARDIAC ARRHYTHMIAS Status: Acute (4) Syncopal episodes Code(s): R55 - SYNCOPE AND COLLAPSE Status: Acute Qualifiers: Syncope type: unspecified Qualified Code(s): R55 - Syncope and collapse (5) Hypoglycemia Code(s): E16.2 - HYPOGLYCEMIA, UNSPECIFIED Status: Resolved (6) Hypothermia Code(s): T68.XXXA - HYPOTHERMIA, INITIAL ENCOUNTER Status: Resolved (7) Anemia Code(s): D64.9 - ANEMIA, UNSPECIFIED Status: Chronic Qualifiers: Anemia type: unspecified cause (8) Dementia Code(s): F03.90 - UNSPECIFIED DEMENTIA WITHOUT BEHAVIORAL DISTURBANCE Status: Chronic (9) History of COPD Code(s): Z87.09 - PERSONAL HISTORY OF OTHER DISEASES OF THE RESPIRATORY SYSTEM Status: Chronic (10) History of brain tumor Code(s): Z87.898 - PERSONAL HISTORY OF OTHER SPECIFIED CONDITIONS Status: Chronic - Plan Pneumonia: Patient has evidence of potential infiltrate as well as hypothermia and low white cell count. Covid test negative. Continue coverage with Rocephin and doxycycline. He currently shows no signs of hypoxia. Hypoglycemia: Episodic. Patient is on no medications that should cause hypoglycemia. Could be related to underlying infection. He did receive 1 amp of D50. TSH was normal. Been relatively stable. Lowest 61 recently. Syncope: Unclear if the patient truly had a syncopal episode or just a fall. He does have some evidence of accelerated junctional rhythm intermixed with sinus bradycardia. Does not appear that his heart rate has dropped into the 40s as of yet although this could potentially be related to his syncopal episode. Will consult cardiology. Continue telemetry. Continue troponin trending. TSH was normal. Possible he could have had another episode of hypoglycemia as well. Accelerated junctional rhythm: Appears to be mixed with some sinus bradycardia. He is on no rate controlling medications. Cardiology consult. Pacemaker placed this morning. Hyperlipidemia: Started statin Anemia: Stable Dementia: Patient remains confused but pleasant. History of COPD: Appears to be stable does not appear to be having any breathing issues. 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 Will need outpatient follow-up. Patient likely ready to go tomorrow. Daughter wants to look into [facility] placement. Will consult case management for SNF placement.
[2020-06-08] MEDS: Enoxaparin Sodium 40 MG/0.4 ML SYRINGE SC SCH (09:18)
[2020-06-08] MEDS: Cephalexin 250 MG CAP PO SCH ×3 (09:26→20:29)
[2020-06-08] MEDS: Famotidine 20 MG TAB PO SCH (09:26)
--- NOTE | 2020-06-08 11:58 | RAD ---
CHEST 1 VIEW: Date: 06/08/2020 INDICATION: History of post cardiac device placement. COMPARISON: Prior exam dated 06/04/2020. FINDINGS: There is a new dual lead pacemaker over the left chest wall. There are areas of increased opacity wit hin the left lower lobe which is similar appearing, which may reflect residual pulmonary contusion or infiltrate. Mild subsegmental volume loss remains in the right lung base. No pneumothorax is evident . Heart size is normal appearing. Osseous structures are unchanged. IMPRESSION: 1. Persistent patchy air space opacity in left lower lobe may reflect contusion or pneumonia. Subseg mental volume loss involving the right lower lobe appears similar appearing. 2. New dual lead pacemaker overlying the left chest wall without evidence of pneumothorax. POS: [facility]
[2020-06-08] MEDS ORDERED: Labetalol HCl 100 MG/20 ML VIAL SLOW IVP PRN (16:51)
[2020-06-08] MEDS: Acetaminophen/Codeine 30-300mg Tablet PO PRN (17:06)
[2020-06-08] MEDS: cefTRIAXone\\ROCEPHIN 1 GM in Sodium Chloride 0.9% 100 ML IVPB SCH (17:07)
[2020-06-08] MEDS ORDERED: Colchicine 0.6 MG TAB PO SCH (18:00)
[2020-06-08] MEDS: Atorvastatin Calcium 40 MG TAB PO SCH (20:29)
[2020-06-09] MEDS: Acetaminophen/Codeine 30-300mg Tablet PO PRN (01:34)
--- NOTE | 2020-06-09 07:55 | PDOC.HOSPP ---
- Subjective Encounter Date: 06/09/20 Encounter Time: 10:30 Subjective: Patient without complaints. No events overnight. - Objective Vital Signs & Weight: Vital Signs (12 hours) Temp Pulse Resp BP Pulse Ox 06/09/20 04:00 97.3 F L 76 18 122/73 98 06/09/20 01:36 94 L Weight Admit Weight 139 lb 12.369 oz Weight 150 lb 12.739 oz I&O: 06/08/20 06/09/20 06/10/20 06:59 06:59 06:59 Intake Total 437 1270 Output Total 420 700 Balance 17 570 Result Diagrams: 06/08/20 03:33 06/08/20 03:33 Additional Labs: Accuchecks 06/09/20 06/09/20 06/08/20 06:02 00:35 20:25 POC Glucose 103 H 118 H 83 06/08/20 06/08/20 16:54 09:25 POC Glucose 102 H 94 Hospitalist ROS - Review of Systems ROS unobtainable: due to mental status - Medication Medications: Active Medications Generic Name Dose Route Start Last Admin Trade Name Freq PRN Reason Stop Dose Admin Acetaminophen/Codeine Phosphate 2 tab 06/08/20 08:41 06/09/20 01:34 Acetaminophen/Codeine 30-300mg Tablet PO 2 tab Q4H PRN Administration Moderate Pain (4-6) Atorvastatin Calcium 40 mg 06/07/20 21:00 06/08/20 20:29 Atorvastatin Calcium 40 Mg Tab PO 40 mg HS TARAN Administration Cephalexin 250 mg 06/08/20 09:00 06/08/20 20:29 Cephalexin 250 Mg Cap PO 06/18/20 09:01 250 mg TID TARAN Administration Famotidine 20 mg 06/06/20 09:00 06/08/20 09:26 Famotidine 20 Mg Tab PO 20 mg DAILY TARAN Administration Doxycycline Hyclate 100 mg/ 100 mls @ 100 mls/hr 06/04/20 21:00 06/08/20 20:29 Sodium Chloride IVPB 100 mls Q12HR TARAN Administration Ceftriaxone Sodium 1 gm/ 100 mls @ 200 mls/hr 06/05/20 17:00 06/08/20 17:07 Sodium Chloride IVPB 100 mls 1700 TARAN Administration Sodium Chloride 10 ml 06/07/20 21:00 06/08/20 20:29 Flush - Normal Saline 10 Ml Syringe IVF 10 ml Q12HR TARAN Administration - Exam General Appearance: NAD, awake alert ENT: moist mucosa Heart: RRR, no murmur, no gallops, no rubs Respiratory: CTAB, no wheezes, no rales, no ronchi Gastrointestinal: soft, non-tender, non-distended, normal bowel sounds Extremities: no edema Psychiatric: normal affect, normal behavior, not oriented Hosp A/P (1) Sepsis Code(s): A41.9 - SEPSIS, UNSPECIFIED ORGANISM Status: Resolved (2) Pneumonia Code(s): J18.9 - PNEUMONIA, UNSPECIFIED ORGANISM Status: Acute Qualifiers: Laterality: left Lung location: lower lobe of lung (3) Accelerated junctional rhythm Code(s): I49.8 - OTHER SPECIFIED CARDIAC ARRHYTHMIAS Status: Acute (4) Syncopal episodes Code(s): R55 - SYNCOPE AND COLLAPSE Status: Acute Qualifiers: Syncope type: unspecified Qualified Code(s): R55 - Syncope and collapse (5) Hypoglycemia Code(s): E16.2 - HYPOGLYCEMIA, UNSPECIFIED Status: Resolved (6) Hypothermia Code(s): T68.XXXA - HYPOTHERMIA, INITIAL ENCOUNTER Status: Resolved (7) Anemia Code(s): D64.9 - ANEMIA, UNSPECIFIED Status: Chronic Qualifiers: Anemia type: unspecified cause (8) Dementia Code(s): F03.90 - UNSPECIFIED DEMENTIA WITHOUT BEHAVIORAL DISTURBANCE Status: Chronic (9) History of COPD Code(s): Z87.09 - PERSONAL HISTORY OF OTHER DISEASES OF THE RESPIRATORY SYSTEM Status: Chronic (10) History of brain tumor Code(s): Z87.898 - PERSONAL HISTORY OF OTHER SPECIFIED CONDITIONS Status: Chronic - Plan Pneumonia: Patient has evidence of potential infiltrate as well as hypothermia and low white cell count. Covid test negative. Continue coverage with Rocephin and doxycycline. He currently shows no signs of hypoxia. Can switch to oral antibiotics when placement arranged. Hypoglycemia: Resolved with treatment of infection. Syncope: Unclear if the patient truly had a syncopal episode or just a fall. He does have some evidence of accelerated junctional rhythm intermixed with sinus bradycardia. Does not appear that his heart rate has dropped into the 40s as of yet although this could potentially be related to his syncopal episode. Will consult cardiology. Continue telemetry. Continue troponin trending. TSH was normal. Possible he could have had another episode of hypoglycemia as well. Accelerated junctional rhythm: Appears to be mixed with some sinus bradycardia. He is on no rate controlling medications. Cardiology consult. 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 Hyperlipidemia: Started statin Anemia: Stable Dementia: Patient remains confused but pleasant. History of COPD: Appears to be stable does not appear to be having any breathing issues. 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 Will need outpatient follow-up. Patient ready to go once placement arranged.
[2020-06-09] MEDS: Cephalexin 250 MG CAP PO SCH ×3 (08:52→21:41)
[2020-06-09] MEDS: Famotidine 20 MG TAB PO SCH (08:52)
[2020-06-09] MEDS ORDERED: Colchicine 0.6 MG TAB PO SCH (09:00)
--- NOTE | 2020-06-09 14:19 | CCLSPC ---
PROCEDURE: Pacemaker insertion. INDICATION: Probable syncope, Mobitz type II, second-degree AV block. DESCRIPTION OF PROCEDURE: The patient was brought to the cardiac wharf labourer, and the left subclavian area was prepped and draped. Versed 1 mg and fentanyl 25 mg were given intravenously for moderate conscious sedation for 1 hour and 20 minutes with appropriate monitoring. 1% Lidocaine was infiltrated into the left subclavian area. A J-wire was placed into the left subclavian vein. Pacemaker pocket was manufactured using blunt and sharp dissection with electrocautery for hemostasis. Antibiotic solution-soaked gauze was placed into the pocket. A 9-Marshallese peel- away sheath was inserted over the wire. The ventricular lead was inserted and advanced to the RV apex and screwed into place. The 9-Marshallese sheath was then removed with the original J-wire remaining in place. A 7-Marshallese peel-away sheath was placed over the J-wire, and the atrial lead was inserted and screwed into the right atrium. R-wave 8.5, impedance 1012, ventricular threshold 1.0. Right atrial lead-P-wave 1.0, impedance 944, threshold 1.3 V. Both leads were paced at 10 V without muscle or diaphragmatic stimulation. The tabs on the suture tie-downs were removed, and both leads were secured in place with 2 sutures of 0 silk. The antibiotic solution-soaked gauze was removed from the pocket, and this was irrigated with copious amounts of antibiotic solution. The pacemaker was attached to the leads and inserted into the pocket and secured in place with 1 suture of 0 silk. The incision was then closed using 2 layers of running 3-0 Vicryl and 1 layer of running 4-0 Vicryl. Dermabond was placed on the incision. The patient tolerated the procedure well. Job ID: [id number] [facility]
--- NOTE | 2020-06-09 14:42 | RAD ---
PORTABLE CHEST: 06/09/20 INDICATIONS: Pacer lead dislodgement. COMPARISON: 06/08/20. FINDINGS/IMPRESSION: Lungs appear clear. Dual lead pacemaker device. One lead overlies the right atrium and the other over lies the right ventricle. Hazy density in the peripheral lower left lung is stable. No acute interval change in the appearance of the chest. POS: [facility]
[2020-06-09] MEDS: Cefdinir 300 MG CAP PO SCH (21:41)
[2020-06-09] MEDS: Atorvastatin Calcium 40 MG TAB PO SCH (21:41)
[2020-06-09] MEDS: Doxycycline 100 MG CAP PO SCH (21:41)
--- NOTE | 2020-06-10 08:01 | PDOC.HOSPP ---
- Subjective Encounter Date: 06/10/20 Encounter Time: 09:00 Subjective: Patient without complaints. No events overnight. - Objective Vital Signs & Weight: Vital Signs (12 hours) Temp Pulse Resp BP Pulse Ox 06/10/20 07:42 98.2 F 77 16 135/65 95 06/10/20 04:25 97.4 F L 78 16 137/62 100 Weight Admit Weight 139 lb 12.369 oz Weight 150 lb 12.739 oz I&O: 06/09/20 06/10/20 06/11/20 06:59 06:59 06:59 Intake Total 1270 580 Output Total 700 150 Balance 570 430 Result Diagrams: 06/08/20 03:33 06/08/20 03:33 Additional Labs: Accuchecks 06/10/20 06/09/20 06/09/20 06:28 21:31 16:45 POC Glucose 85 94 92 06/09/20 06/09/20 06/08/20 10:47 08:08 11:37 POC Glucose 124 H 105 H 74 Hospitalist ROS - Review of Systems ROS unobtainable: due to mental status - Medication Medications: Active Medications Generic Name Dose Route Start Last Admin Trade Name Freq PRN Reason Stop Dose Admin Acetaminophen/Codeine Phosphate 2 tab 06/08/20 08:41 06/09/20 01:34 Acetaminophen/Codeine 30-300mg Tablet PO 2 tab Q4H PRN Administration Moderate Pain (4-6) Atorvastatin Calcium 40 mg 06/07/20 21:00 06/09/20 21:41 Atorvastatin Calcium 40 Mg Tab PO 40 mg HS TARAN Administration Cefdinir 300 mg 06/09/20 21:00 06/09/20 21:41 Cefdinir 300 Mg Cap PO 300 mg BID TARAN Administration Cephalexin 250 mg 06/08/20 09:00 06/09/20 21:41 Cephalexin 250 Mg Cap PO 06/18/20 09:01 250 mg TID TARAN Administration Doxycycline Hyclate 100 mg 06/09/20 21:00 06/09/20 21:41 Doxycycline 100 Mg Cap PO 100 mg BID TARAN Administration Famotidine 20 mg 06/06/20 09:00 06/09/20 08:52 Famotidine 20 Mg Tab PO 20 mg DAILY TARAN Administration Sodium Chloride 10 ml 06/09/20 21:00 11/20/20 21:41 Flush - Normal Saline 10 Ml Syringe IVF 10 ml Q12HR TARAN Administration - Exam General Appearance: NAD, awake alert ENT: moist mucosa Heart: RRR, no murmur, no gallops, no rubs Respiratory: CTAB, no wheezes, no rales, no ronchi Gastrointestinal: soft, non-tender, non-distended, normal bowel sounds Psychiatric: normal affect, normal behavior, not oriented Hosp A/P (1) Sepsis Code(s): A41.9 - SEPSIS, UNSPECIFIED ORGANISM Status: Resolved (2) Pneumonia Code(s): J18.9 - PNEUMONIA, UNSPECIFIED ORGANISM Status: Acute Qualifiers: Laterality: left Lung location: lower lobe of lung (3) Accelerated junctional rhythm Code(s): I49.8 - OTHER SPECIFIED CARDIAC ARRHYTHMIAS Status: Acute (4) Syncopal episodes Code(s): R55 - SYNCOPE AND COLLAPSE Status: Acute Qualifiers: Syncope type: unspecified Qualified Code(s): R55 - Syncope and collapse (5) Hypoglycemia Code(s): E16.2 - HYPOGLYCEMIA, UNSPECIFIED Status: Resolved (6) Hypothermia Code(s): T68.XXXA - HYPOTHERMIA, INITIAL ENCOUNTER Status: Resolved (7) Anemia Code(s): D64.9 - ANEMIA, UNSPECIFIED Status: Chronic Qualifiers: Anemia type: unspecified cause (8) Dementia Code(s): F03.90 - UNSPECIFIED DEMENTIA WITHOUT BEHAVIORAL DISTURBANCE Status: Chronic (9) History of COPD Code(s): Z87.09 - PERSONAL HISTORY OF OTHER DISEASES OF THE RESPIRATORY SYSTEM Status: Chronic (10) History of brain tumor Code(s): Z87.898 - PERSONAL HISTORY OF OTHER SPECIFIED CONDITIONS Status: Chronic - Plan Pneumonia: Patient has evidence of potential infiltrate as well as hypothermia and low white cell count. Covid test negative. Continue coverage with Rocephin and doxycycline. He currently shows no signs of hypoxia. Can switch to oral anti biotics when placement arranged or stop after 7 days of antibiotics. Hypoglycemia: Resolved with treatment of infection. Syncope: resolved, no further recurrence Likely related to infection and heart block. Accelerated junctional rhythm: Appears to be mixed with some sinus bradycardia. He is on no rate controlling medications. Cardiology consult. 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 Lead has come loose so needs replacement on Friday. Hyperlipidemia: Started statin Anemia: Stable Dementia: Patient remains confused but pleasant. History of COPD: Appears to be stable does not appear to be having any breathing issues. 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 Will need outpatient follow-up. Patient will need pacemaker lead replacement before sent to SNF.
[2020-06-10] MEDS: Cephalexin 250 MG CAP PO SCH ×3 (10:10→22:28)
[2020-06-10] MEDS: Famotidine 20 MG TAB PO SCH (10:10)
[2020-06-10] MEDS: Doxycycline 100 MG CAP PO SCH ×2 (10:10→22:30)
[2020-06-10] MEDS: Cefdinir 300 MG CAP PO SCH ×2 (10:10→22:30)
--- NOTE | 2020-06-10 17:08 | EKG ---
Test Reason : Blood Pressure : / mmHG Vent. Rate : 060 BPM Atrial Rate : 060 BPM P-R Int : 000 ms QRS Dur : 100 ms QT Int : 460 ms P-R-T Axes : 000 039 042 degrees QTc Int : 460 ms Junctional rhythm Abnormal ECG Confirmed by RONIT ALLISON DO ([id number]), book or script editor ALVIN BENJAMIN ([id number]) on 06/10/2020 5:07:31 PM Referred By: Confirmed By:RONIT ALLISON DO
[2020-06-10] MEDS: Acetaminophen/Codeine 30-300mg Tablet PO PRN (22:29)
[2020-06-10] MEDS: Atorvastatin Calcium 40 MG TAB PO SCH (22:30)
[2020-06-11 04:24] LABS: Anion Gap 12 mmol/L (10-20); BUN (Urea Nitrogen) 22 mg/dL (8.4-25.7); Calc. Creatinine Clearance 50 mL/min (70-130); Calcium 8.1 mg/dL (7.8-10.44); Carbon Dioxide 23 mmol/L (23-31); Chloride 105 mmol/L (98-107); Estimated GFR-MDRD 86; Glucose 89 mg/dL (83-110); Potassium 4.5 mmol/L (3.5-5.1); Sodium 135 mmol/L (136-145)
[2020-06-11 04:44] LABS: #Eosinphils 0.2 thou/uL (0.0-0.7); #Lymphocytes 1.2 thou/uL (1.20-3.40); #Monocytes 0.4 thou/uL (0.11-0.59); #Neutrophils 2.4 thou/uL (1.40-6.50); %Basophils 0.2 % (0.0-1.0); %Lymphocytes 28.8 % (21.0-51.0); %Monocytes 10.3 % (0.0-10.0); %Neutrophils 55.8 % (42.0-75.0); Hemoglobin 7.5 g/dL (14.0-18.0); Mean Corpuscular Hemoglobin 30.5 pg (27.0-31.0); Mean Corpuscular Volume 89.8 fL (78.0-98.0); Platelet Count 124 thou/uL (130-400); RBC Distribution Width 15.8 % (11.5-14.5); Red Blood Cell (RBC) Count 2.46 mill/uL (4.70-6.10); White Blood Cell (WBC) Count 4.3 thou/uL (4.8-10.8)
[2020-06-11] MEDS: Famotidine 20 MG TAB PO SCH (09:34)
[2020-06-11] MEDS: Cefdinir 300 MG CAP PO SCH ×2 (09:34→20:33)
[2020-06-11] MEDS: Doxycycline 100 MG CAP PO SCH ×2 (09:34→20:33)
[2020-06-11] MEDS: Cephalexin 250 MG CAP PO SCH ×2 (09:34→15:22)
[2020-06-11 12:30] LABS: Iron 30 ug/dL (65-175); Iron Binding Capacity, Total 173 mcg/dL (261-462)
[2020-06-11 12:31] LABS: Iron 29 ug/dL (65-175); Iron Binding Capacity, Total 170 mcg/dL (261-462)
[2020-06-11 13:21] LABS: Troponin I 0.052 ng/mL (< 0.028)
--- NOTE | 2020-06-11 16:57 | PDOC.HOSPP ---
- Subjective Encounter Date: 06/11/20 Encounter Time: 13:00 Subjective: Patient was seen and examined in bed. He was generally stable overnight. Patient not communicating much however denies any chest pain or shortness of breath or abdominal pain. Telemetry showed brief periods of type I and II AV block. - Objective Vital Signs & Weight: Vital Signs (12 hours) Temp Pulse Resp BP BP Pulse Ox 06/11/20 15:17 97.6 F 65 12 157/64 H 100 06/11/20 12:00 96.7 F L 70 18 116/70 97 06/11/20 07:32 98.1 F 66 14 132/64 100 Weight Admit Weight 139 lb 12.369 oz Weight 150 lb 12.739 oz I&O: 06/10/20 06/11/20 06/12/20 06:59 06:59 06:59 Intake Total 630 980 Output Total 460 700 Balance 170 280 Result Diagrams: 06/11/20 03:51 06/11/20 03:51 Additional Labs: Accuchecks 06/11/20 06/10/20 06/10/20 10:31 21:16 17:47 POC Glucose 104 H 125 H 118 H 06/10/20 17:01 POC Glucose 69 L Hospitalist ROS - Medication Medications: Active Medications Generic Name Dose Route Start Last Admin Trade Name Freq PRN Reason Stop Dose Admin Acetaminophen/Codeine Phosphate 2 tab 06/08/20 08:41 06/10/20 22:29 Acetaminophen/Codeine 30-300mg Tablet PO 2 tab Q4H PRN Administration Moderate Pain (4-6) Atorvastatin Calcium 40 mg 06/07/20 21:00 06/10/20 22:30 Atorvastatin Calcium 40 Mg Tab PO 40 mg HS TARAN Administration Cefdinir 300 mg 06/09/20 21:00 06/11/20 09:34 Cefdinir 300 Mg Cap PO 300 mg BID TARAN Administration Cephalexin 250 mg 06/08/20 09:00 06/11/20 15:22 Cephalexin 250 Mg Cap PO 06/18/20 09:01 250 mg TID TARAN Administration Doxycycline Hyclate 100 mg 06/09/20 21:00 06/11/20 09:34 Doxycycline 100 Mg Cap PO 100 mg BID TARAN Administration Famotidine 20 mg 06/06/20 09:00 06/11/20 09:34 Famotidine 20 Mg Tab PO 20 mg DAILY TARAN Administration Sodium Chloride 10 ml 06/09/20 21:00 06/11/20 09:35 Flush - Normal Saline 10 Ml Syringe IVF 10 ml Q12HR TARAN Administration - Exam General Appearance: awake alert Heart: RRR, no murmur, no gallops Respiratory: no wheezes, no rales, no ronchi, no tachypnea Gastrointestinal: soft, non-tender, non-distended, normal bowel sounds Extremities: no cyanosis, no clubbing, no edema Neurological: cranial nerve grossly intact Psychiatric - other findings: Oriented to person. Not place and time Hosp A/P - Plan This is an 89-year-old male patient with a history of dementia, COPD and brain tumor admitted on account of syncope and hypoglycemia. Initial concerns for sepsis secondary to pneumonia. 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 Appears to be generally stable Sepsis Likely secondary to pneumonia We will continue on Ceftin and doxycycline. Pulse ox Keflexdiscontinued. Continue monitoring Pneumonia Continue above. Syncope Possibly cardiac. Status post pacemaker placementwe will continue monitoring. Accelerated junctional rhythm. Continue monitor on telemetry. Hyperlipidemia Continue statin A. fib with slow ventricular response Consider starting anticoagulation. Appreciate cardiology input in a.m. History of COPD No acute exacerbation Continue monitoring. Hypoglycemiapresentation Resolved Normocytic anemia Hemoglobin currently 7.5 from 8.7 Iron studies shows low saturation but high ferritin Likely of chronic disorder Possible blood loss component. Will consider GI evaluation in a.m. VT prophylaxiswe will start Lovenox CODE STATUS DNR
[2020-06-11] MEDS: Atorvastatin Calcium 40 MG TAB PO SCH (20:33)
[2020-06-12] MEDS: Acetaminophen/Codeine 30-300mg Tablet PO PRN (03:28)
[2020-06-12] MEDS: Cefdinir 300 MG CAP PO SCH ×2 (05:43→22:40)
[2020-06-12] MEDS: Famotidine 20 MG TAB PO SCH (05:43)
[2020-06-12] MEDS: Doxycycline 100 MG CAP PO SCH ×2 (05:43→22:40)
[2020-06-12] MEDS ORDERED: Gentamicin 80 MG/2 ML VIAL ONE (06:41)
[2020-06-12] MEDS ORDERED: CEFAZOLIN 1 GM VIAL ONE (06:41)
[2020-06-12] MEDS ORDERED: Fentanyl 100 MCG/2 ML VIAL ONE (07:13)
[2020-06-12] MEDS ORDERED: Midazolam HCl 2 mg/2 ml Vial ONE (07:13)
[2020-06-12] MEDS ORDERED: Lidocaine 1% (PF) 30 ML VIAL ONE (07:19)
[2020-06-12] MEDS ORDERED: Vancomycin HCl 500 MG VIAL ONE (07:46)
[2020-06-12 08:12] VITALS: BMI 22.7
[2020-06-12] MEDS ORDERED: Aspirin 325 MG TAB PO SCH (09:00)
[2020-06-12] MEDS ORDERED: Enoxaparin Sodium 40 MG/0.4 ML SYRINGE SC SCH (09:00)
[2020-06-12 09:02] LABS: #Basophils 0.1 thou/uL (0.0-0.2); #Eosinphils 0.2 thou/uL (0.0-0.7); #Lymphocytes 1.8 thou/uL (1.20-3.40); #Monocytes 0.3 thou/uL (0.11-0.59); %Basophils 1.2 % (0.0-1.0); %Eosinophils 5.3 % (0.0-10.0); %Lymphocytes 41.1 % (21.0-51.0); %Monocytes 6.5 % (0.0-10.0); %Neutrophils 45.9 % (42.0-75.0); Hemoglobin 8.7 g/dL (14.0-18.0); Mean Corpuscular HGB CONC 32.7 g/dL (32.0-36.0); Mean Corpuscular Hemoglobin 30.4 pg (27.0-31.0); Platelet Count 169 thou/uL (130-400); Red Blood Cell (RBC) Count 2.86 mill/uL (4.70-6.10); White Blood Cell (WBC) Count 4.4 thou/uL (4.8-10.8)
[2020-06-12 09:16] LABS: Anion Gap 13 mmol/L (10-20); BUN (Urea Nitrogen) 24 mg/dL (8.4-25.7); Calc. Creatinine Clearance 43 mL/min (70-130); Calcium 8.3 mg/dL (7.8-10.44); Carbon Dioxide 20 mmol/L (23-31); Chloride 106 mmol/L (98-107); Estimated GFR-MDRD 74; Glucose 75 mg/dL (83-110); Potassium 4.6 mmol/L (3.5-5.1); Sodium 134 mmol/L (136-145); Troponin I 0.066 ng/mL (< 0.028)
--- NOTE | 2020-06-12 14:15 | RAD ---
PORTABLE CHEST: Date: 06/12/2020 HISTORY: Post pacemaker placement. COMPARISON: 06/09/2020 exam. FINDINGS: Heart size appears slightly enlarged. A pacemaker is in place. No pneumothorax identified. There is m ore linear parenchymal change in the right base consistent with atelectasis. There is linear change i n the left base probably related to scar. IMPRESSION: 1. No evidence of pneumothorax. 2. Right lower lobe atelectasis. 3. Cardiomegaly. POS: AH
--- NOTE | 2020-06-12 18:49 | PDOC.HOSPP ---
- Subjective Encounter Date: 06/12/20 Subjective: Seen and examined in bed. He had episodes of second-degree block onTelemetry and was sent down for pacemaker repositioning. Telemetry has been stable since. Patient denies any chest pain or shortness of breath - Objective Vital Signs & Weight: Vital Signs (12 hours) Temp Pulse Resp BP Pulse Ox 06/12/20 15:46 98.2 F 65 21 H 152/71 H 95 06/12/20 12:34 98.3 F 63 17 139/63 96 06/12/20 08:45 97.7 F 78 19 137/70 98 Weight Admit Weight 139 lb 12.369 oz Weight 150 lb I&O: 06/11/20 06/12/20 06/13/20 06:59 06:59 06:59 Intake Total 980 540 400 Output Total 700 345 300 Balance 280 195 100 Result Diagrams: 06/12/20 08:49 06/12/20 08:49 Additional Labs: Accuchecks 06/12/20 06/12/20 06/11/20 10:31 05:15 20:48 POC Glucose 79 86 99 06/11/20 06/11/20 16:27 06:06 POC Glucose 90 101 H Hospitalist ROS - Medication Medications: Active Medications Generic Name Dose Route Start Last Admin Trade Name Freq PRN Reason Stop Dose Admin Acetaminophen/Codeine Phosphate 2 tab 06/08/20 08:41 06/12/20 03:28 Acetaminophen/Codeine 30-300mg Tablet PO 2 tab Q4H PRN Administration Moderate Pain (4-6) Atorvastatin Calcium 40 mg 06/07/20 21:00 06/11/20 20:33 Atorvastatin Calcium 40 Mg Tab PO 40 mg HS TARAN Administration Cefdinir 300 mg 06/09/20 21:00 06/12/20 05:43 Cefdinir 300 Mg Cap PO 300 mg BID TARAN Administration Doxycycline Hyclate 100 mg 06/09/20 21:00 06/12/20 05:43 Doxycycline 100 Mg Cap PO 100 mg BID TARAN Administration Famotidine 20 mg 06/06/20 09:00 06/12/20 05:43 Famotidine 20 Mg Tab PO 20 mg DAILY TARAN Administration Sodium Chloride 10 ml 06/09/20 21:00 06/12/20 15:54 Flush - Normal Saline 10 Ml Syringe IVF 10 ml Q12HR TARAN Administration - Exam General - other findings: Awake, looks drowsy Heart: RRR, no murmur, no gallops, no rubs Heart - other findings: Pacemaker wound site clean Respiratory: CTAB, no wheezes, no rales, no ronchi Gastrointestinal: soft, non-tender, non-distended, normal bowel sounds Extremities: no cyanosis, no clubbing, no edema Neurological: cranial nerve grossly intact, no weakness Psychiatric - other findings: Oriented to self. Not place and time. Hosp A/P - Plan This is an 89-year-old male patient with a history of dementia, COPD and brain tumor admitted on account of syncope and hypoglycemia. Initial concerns for sepsis secondary to pneumonia. 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 He had ongoing secondary AV block's and had reposition of pacemaker this morning Sepsis Likely secondary to pneumonia We will continue on cefuroxime and doxycycline. Continue monitoring. Pneumonia Continue above. Syncope Possibly cardiac. Status post pacemaker placement and repositioning Continue monitoring on telemetry Anemia Unclear etiology Ferritin elevated however saturation is low Consult GI to assess the need for endoscopy in a.m. Hyperlipidemia Continue statin A. fib with slow ventricular response Consider starting anticoagulation. Appreciate cardiology input in a.m. History of COPD No acute exacerbation Continue monitoring. Hypoglycemiapresentation Resolved Normocytic anemia Hemoglobin currently 7.5 from 8.7 Iron studies shows low saturation but high ferritin Likely of chronic disorder Possible blood loss component. Will consider GI evaluation in a.m. VT prophylaxiswe will start Lovenox CODE STATUS DNR
[2020-06-12] MEDS: Atorvastatin Calcium 40 MG TAB PO SCH (22:40)
[2020-06-13 06:29] LABS: #Eosinphils 0.2 thou/uL (0.0-0.7); #Lymphocytes 1.3 thou/uL (1.20-3.40); #Monocytes 0.3 thou/uL (0.11-0.59); %Basophils 0.1 % (0.0-1.0); %Eosinophils 5.5 % (0.0-10.0); %Lymphocytes 33.5 % (21.0-51.0); %Monocytes 8.5 % (0.0-10.0); %Neutrophils 52.5 % (42.0-75.0); Anisocytosis SLIGHT = 6-15 cells (100X) (0-5/hpf); Hemoglobin 7.2 g/dL (14.0-18.0); MDiff Complete? YES; Mean Corpuscular HGB CONC 32.8 g/dL (32.0-36.0); Mean Corpuscular Hemoglobin 29.8 pg (27.0-31.0); Mean Corpuscular Volume 90.8 fL (78.0-98.0); Mean Platelet Volume 9.2 fL (7.4-10.4); Platelet Count 103 thou/uL (130-400); Platelet Morphology Comment Appears Decreased; RBC Distribution Width 15.9 % (11.5-14.5); Red Blood Cell (RBC) Count 2.42 mill/uL (4.70-6.10); White Blood Cell (WBC) Count 3.9 thou/uL (4.8-10.8)
--- NOTE | 2020-06-13 07:19 | EKG ---
Test Reason : Blood Pressure : / mmHG Vent. Rate : 073 BPM Atrial Rate : 073 BPM P-R Int : 208 ms QRS Dur : 170 ms QT Int : 478 ms P-R-T Axes : 085 038 170 degrees QTc Int : 526 ms Electronic ventricular pacemaker When compared with ECG of 04-JUN-2020 12:15, (Unconfirmed) Electronic ventricular pacemaker has replaced Junctional rhythm Confirmed by CHANEL THOMPSON MD ([id number]) on 06/13/2020 7:19:00 AM Referred By: GARCIA Confirmed By:CHANEL THOMPSON MD
[2020-06-13] MEDS: Doxycycline 100 MG CAP PO SCH ×2 (10:54→22:05)
[2020-06-13] MEDS: Cefdinir 300 MG CAP PO SCH ×2 (10:54→22:05)
[2020-06-13] MEDS: Famotidine 20 MG TAB PO SCH (10:54)
--- NOTE | 2020-06-13 17:22 | CON ---
DATE OF CONSULTATION: 06/13/2020 REASON FOR CONSULTATION: Anemia. HISTORY OF PRESENT ILLNESS: Mr. Onofre is an 89-year-old man, who was admitted to the hospital 9 days ago after having a syncopal episode at home. The patient has had a Cardiology evaluation including echocardiogram, cardiac catheterization and has had episodes of second-degree AV block on pacemaker. He also has an atrial fibrillation with normal heart rate. On admission, his hemoglobin was 8.9 and has been fluctuated between this level to 7.2 this morning. His MCV is normal. There has not been any noticeable melena, hematochezia, or rectal bleeding. The patient denies having any localized abdominal pain or discomfort. He has no nausea or vomiting. The patient's past GI medical history is significant for a negative EGD and colonoscopy in 2012. He also has a history of pancreatic pseudocyst in the past. PAST MEDICAL HISTORY: 1. Hypertension. 2. Hyperlipidemia. 3. 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 5. History of pancreatic pseudocyst. 6. Aortic aneurysm. 7. Dementia. ALLERGIES: NONE. MEDICATIONS: Currently include; 1. Atorvastatin. 2. Omnicef. 3. Doxycycline. 4. Famotidine. SOCIAL HISTORY: The patient denies any alcohol or tobacco usage. FAMILY HISTORY: Negative for any known GI problem, liver disease, or GI malignancy. REVIEW OF SYSTEMS: Not reliably obtained from the patient. However, ten-point review of systems did not show any other symptoms, not otherwise reported as above. PHYSICAL EXAMINATION: VITAL SIGNS: Temperature is 98.1, blood pressure 135/69, pulse of 70. GENERAL: He is alert, sitting up, finishing his lunch. HEENT: Anicteric sclerae. Oropharynx is clear. NECK: Supple. No adenopathy. CV: Shows normal S1 and S2. Regular rate and rhythm. 2/6 systolic murmur. CHEST: Shows breath sounds clear to auscultation. ABDOMEN: Mildly protuberant, but soft and nontender. No palpable mass or organomegaly. No distention. No tympany. EXTREMITIES: Shows trace pedal edema. LABORATORY DATA: WBCs 3.9, hemoglobin 7.2 (8.7 yesterday), platelet count is 103, and MCV of 90.8. Electrolytes within normal range. Creatinine is 1.13, BUN of 24. Serum iron is 30, TIBC is 173, ferritin is 1284. ASSESSMENT: 1. Normocytic anemia with hemoglobin ranging between 7.2 and 8.9. He has no overt bleeding. TIBC is not elevated, but he does have low serum iron. Elevation ferritin is likely of an acute phase reactant. At this point, there is no defined iron deficiency component, although he may have a mixed type. Given age and other co morbid issues, will hold off on endoscopic evaluation unless there is sign or evidence of enteric blood loss. 2. Status post syncope on admission. 3. Pneumonia. RECOMMENDATIONS: We will check stool for any occult blood. If positive, we will proceed with endoscopic evaluation. The patient does not have any signs of overt bleeding at this point. Job ID: [id number] [facility]
--- NOTE | 2020-06-13 19:07 | PDOC.HOSPP ---
- Subjective Encounter Date: 06/13/20 Subjective: Patient examined in bed. He had a generally good night. He denies any chest pain or shortness of breath. - Objective Vital Signs & Weight: Vital Signs (12 hours) Temp Pulse Resp BP Pulse Ox 06/13/20 16:00 98.1 F 70 19 135/69 95 06/13/20 12:00 98.9 F 79 19 127/85 91 L 06/13/20 11:30 97.3 F L 69 18 164/70 H 94 L 06/13/20 07:40 97 06/13/20 07:34 98.4 F 68 19 160/72 H 97 Weight Admit Weight 139 lb 12.369 oz Weight 150 lb I&O: 06/12/20 06/13/20 06/14/20 06:59 06:59 06:59 Intake Total 540 760 720 Output Total 345 900 Balance 195 -140 720 Result Diagrams: 06/13/20 03:51 06/12/20 08:49 Additional Labs: Accuchecks 06/13/20 06/13/20 06/12/20 16:24 06:29 21:22 POC Glucose 65 L 74 86 06/12/20 16:17 POC Glucose 84 Hospitalist ROS - Medication Medications: Active Medications Generic Name Dose Route Start Last Admin Trade Name Freq PRN Reason Stop Dose Admin Acetaminophen/Codeine Phosphate 2 tab 06/08/20 08:41 06/12/20 03:28 Acetaminophen/Codeine 30-300mg Tablet PO 2 tab Q4H PRN Administration Moderate Pain (4-6) Atorvastatin Calcium 40 mg 06/07/20 21:00 06/12/20 22:40 Atorvastatin Calcium 40 Mg Tab PO 40 mg HS TARAN Administration Cefdinir 300 mg 06/09/20 21:00 06/13/20 10:54 Cefdinir 300 Mg Cap PO 300 mg BID TARAN Administration Doxycycline Hyclate 100 mg 06/09/20 21:00 06/13/20 10:54 Doxycycline 100 Mg Cap PO 100 mg BID TARAN Administration Famotidine 20 mg 06/06/20 09:00 06/13/20 10:54 Famotidine 20 Mg Tab PO 20 mg DAILY TARAN Administration Sodium Chloride 10 ml 06/09/20 21:00 06/13/20 10:54 Flush - Normal Saline 10 Ml Syringe IVF 10 ml Q12HR TARAN Administration - Exam General - other findings: Awake and alert to self. Heart: RRR, no murmur, no gallops, no rubs Heart - other findings: Pacemaker wound site clean. Respiratory: CTAB, no wheezes, no rales, normal percussion Extremities: no cyanosis, no clubbing, no edema Psychiatric - other findings: Oriented to person. Not place and time. Hosp A/P - Plan This is an 89-year-old male patient with a history of dementia, COPD and brain tumor admitted on account of syncope and hypoglycemia. Initial concerns for sepsis secondary to pneumonia. 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 He had ongoing secondary AV block's and had reposition of pacemaker this morning Sepsis Likely secondary to pneumonia We will continue on cefuroxime and doxycycline. Continue monitoring. Pneumonia Continue above. Syncope Possibly cardiac. Status post pacemaker placement and repositioning Continue monitoring on telemetry Anemia Unclear etiology Ferritin elevated however saturation is low GI assessedpossible endoscopy if stool Cologuard positive Hyperlipidemia Continue statin A. fib with slow ventricular response Consider starting anticoagulation. Appreciate cardiology input in a.m. History of COPD No acute exacerbation Continue monitoring. Hypoglycemiapresentation Resolved Normocytic anemia Hemoglobin currently 7.5 from 8.7 Iron studies shows low saturation but high ferritin Likely of chronic disorder Possible blood loss component. Will consider GI evaluation in a.m. VT prophylaxiswe will start Lovenox CODE STATUS DNR
[2020-06-13] MEDS: Atorvastatin Calcium 40 MG TAB PO SCH (22:05)
[2020-06-14] MEDS ORDERED: Bisacodyl 10 MG SUPP PR PRN (08:26)
--- NOTE | 2020-06-14 09:21 | EKG ---
Test Reason : Blood Pressure : / mmHG Vent. Rate : 057 BPM Atrial Rate : 061 BPM P-R Int : 000 ms QRS Dur : 076 ms QT Int : 646 ms P-R-T Axes : 000 039 087 degrees QTc Int : 628 ms Atrial fibrillation with slow ventricular response Septal infarct , age undetermined Prolonged QT Abnormal ECG Confirmed by CHANEL THOMPSON MD ([id number]) on 06/14/2020 9:20:30 AM Referred By: SIMIN Confirmed By:CHANEL THOMPSON MD
[2020-06-14] MEDS: Doxycycline 100 MG CAP PO SCH ×2 (09:41→20:17)
[2020-06-14] MEDS: Cefdinir 300 MG CAP PO SCH ×2 (09:41→20:17)
[2020-06-14] MEDS: Famotidine 20 MG TAB PO SCH (09:41)
--- NOTE | 2020-06-14 14:51 | PRG ---
DATE OF SERVICE: 06/14/2020 SUBJECTIVE: The patient denies any complaints this morning. Specifically, there is no abdominal pain, nausea, vomiting, or any bowel issue. PHYSICAL EXAMINATION: VITAL SIGNS: Temperature is 97.6, blood pressure 135/63, pulse of 65. GENERAL: He is awake and alert without any distress. HEENT: Shows anicteric sclerae. CV: Shows normal S1, S2. Regular rate. CHEST: Shows breath sounds somewhat poor excursion. ABDOMEN: Soft and nontender. He has very active bowel sounds. No tympany. EXTREMITIES: No edema. LABORATORY DATA: Stool occult blood negative by immunochemical test. ASSESSMENT: 1. Normocytic normochromic anemia with fluctuating hemoglobin between 7.2 and 8.9. The patient does not have any overt bleeding and stool is negative for occult blood. I suspect his anemia is mixed type. 2. Pneumonia. 3. Atrial fibrillation with regular ventricular rate. 4. Chronic obstructive pulmonary disease. RECOMMENDATION: 1. No indication for any GI evaluation or endoscopy at the present time as patient does not have any obvious enteric blood loss with negative fecal occult blood. 2. GI service will sign off for now, Dr. Yoo will be on-call for the next 4 days. Please recall if needed. Job ID: [id number]
[2020-06-14] MEDS ORDERED: Dextrose 5% in Water 1,000 ML IV SCH (17:15)
[2020-06-14] MEDS ORDERED: Dextrose 5% in Water 1,000 ML IV PRN (17:47)
--- NOTE | 2020-06-14 18:28 | PDOC.HOSPP ---
- Subjective Encounter Date: 06/14/20 Subjective: Patient was seen and examined in bed. He had no complaints. He denied any chest pain or shortness of breath - Objective Vital Signs & Weight: Vital Signs (12 hours) Temp Pulse Resp BP BP BP Pulse Ox 06/14/20 15:45 97.5 F L 64 16 162/72 H 99 06/14/20 11:40 97.6 F 65 16 135/63 97 06/14/20 10:17 115/56 L 06/14/20 08:03 97 06/14/20 07:20 97.7 F 62 16 115/56 L 97 Weight Admit Weight 139 lb 12.369 oz Weight 150 lb I&O: 06/13/20 06/14/20 06/15/20 06:59 06:59 06:59 Intake Total 760 1204 120 Output Total 900 650 Balance -140 554 120 Result Diagrams: 06/13/20 03:51 06/12/20 08:49 Additional Labs: Accuchecks 06/14/20 06/14/20 06/14/20 17:22 11:13 06:42 POC Glucose 71 91 76 06/13/20 20:59 POC Glucose 109 H Hospitalist ROS - Medication Medications: Active Medications Generic Name Dose Route Start Last Admin Trade Name Freq PRN Reason Stop Dose Admin Acetaminophen/Codeine Phosphate 1 tab 06/08/20 08:41 06/14/20 02:18 Acetaminophen/Codeine 30-300mg Tablet PO 1 tab Q4H PRN Administration Mild Pain (1-3) Acetaminophen/Codeine Phosphate 2 tab 06/08/20 08:41 06/12/20 03:28 Acetaminophen/Codeine 30-300mg Tablet PO 2 tab Q4H PRN Administration Moderate Pain (4-6) Atorvastatin Calcium 40 mg 06/07/20 21:00 06/13/20 22:05 Atorvastatin Calcium 40 Mg Tab PO 40 mg HS TARAN Administration Bisacodyl 10 mg 06/14/20 08:26 06/14/20 09:41 Bisacodyl 10 Mg Supp ID 10 mg DAILYPRN PRN Administration Constipation Cefdinir 300 mg 06/09/20 21:00 06/14/20 09:41 Cefdinir 300 Mg Cap PO 300 mg BID TARAN Administration Doxycycline Hyclate 100 mg 06/09/20 21:00 06/14/20 09:41 Doxycycline 100 Mg Cap PO 100 mg BID TARAN Administration Famotidine 20 mg 06/06/20 09:00 06/14/20 09:41 Famotidine 20 Mg Tab PO 20 mg DAILY TARAN Administration Sodium Chloride 10 ml 06/09/20 21:00 06/14/20 09:41 Flush - Normal Saline 10 Ml Syringe IVF 10 ml Q12HR TARAN Administration - Exam General - other findings: Awake, alert but not very oriented to place and time Heart: RRR, no murmur, no gallops, no rubs Respiratory: CTAB, no wheezes, no rales, no ronchi Gastrointestinal: soft, non-tender, non-distended, normal bowel sounds Extremities: no cyanosis, no clubbing, no edema Neurological: cranial nerve grossly intact, no weakness Psychiatric - other findings: Oriented to self. Not place and time. Hosp A/P - Plan This is an 89-year-old male patient with a history of dementia, COPD and brain tumor admitted on account of syncope and hypoglycemia. Initial concerns for sepsis secondary to pneumonia. 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 He had ongoing secondary AV block's and had reposition of pacemaker. Patient also had anemia which was evaluated by GI and unclear not to be of GI origin. Gastroenterology has signed off. He is awaiting placement for SNF Sepsis Likely secondary to pneumonia We will continue on ceftriaxone and doxycyclineon day 5. No growth on blood cultures Plan to complete 7 days of antibiotic Continue monitoring. Pneumonia Continue above. 2 complete 7 days of doxycycline/ceftriaxone. Syncope Possibly cardiac. Status post pacemaker placement and repositioning Continue monitoring on telemetry Anemia Unclear etiologyiron studies not very clear for JEANETTE Ferritin elevated however saturation is low GI assessedno colonoscopy We will monitor and replace iron if possible Transfuse for hemoglobin less than 7.. Thrombocytopenia Unclear etiology Has been off heparin Is associated with thrombocytopenia We will check fibrinogen to rule out DIC although patient does not look septic or ill. Repeat BMP Hyperlipidemia Continue statin A. fib with slow ventricular response Consider starting anticoagulation. Appreciate cardiology input in a.m. History of COPD No acute exacerbation Continue monitoring. Hypoglycemiapresentation Resolved Monitor blood glucose Start D5 if recurrent. Dementia VT prophylaxiswe will start Lovenox CODE STATUS DNR
[2020-06-14 20:02] LABS: #Eosinphils 0.2 thou/uL (0.0-0.7); #Lymphocytes 1.6 thou/uL (1.20-3.40); #Monocytes 0.2 thou/uL (0.11-0.59); #Neutrophils 2.4 thou/uL (1.40-6.50); %Basophils 0.4 % (0.0-1.0); %Eosinophils 5.4 % (0.0-10.0); %Lymphocytes 35.9 % (21.0-51.0); %Monocytes 4.7 % (0.0-10.0); %Neutrophils 53.6 % (42.0-75.0); Hemoglobin 7.6 g/dL (14.0-18.0); Mean Corpuscular Hemoglobin 28.9 pg (27.0-31.0); Mean Corpuscular Volume 90.3 fL (78.0-98.0); Mean Platelet Volume 6.7 fL (7.4-10.4); Platelet Count 205 thou/uL (130-400); RBC Distribution Width 15.7 % (11.5-14.5); Red Blood Cell (RBC) Count 2.64 mill/uL (4.70-6.10); White Blood Cell (WBC) Count 4.5 thou/uL (4.8-10.8)
[2020-06-14] MEDS: Atorvastatin Calcium 40 MG TAB PO SCH (20:17)
[2020-06-15 04:52] LABS: #Eosinphils 0.3 thou/uL (0.0-0.7); #Lymphocytes 1.9 thou/uL (1.20-3.40); #Monocytes 0.3 thou/uL (0.11-0.59); #Neutrophils 2.5 thou/uL (1.40-6.50); %Basophils 0.6 % (0.0-1.0); %Eosinophils 5.3 % (0.0-10.0); %Lymphocytes 37.1 % (21.0-51.0); %Monocytes 6.7 % (0.0-10.0); %Neutrophils 50.2 % (42.0-75.0); Hemoglobin 7.6 g/dL (14.0-18.0); Mean Corpuscular HGB CONC 31.8 g/dL (32.0-36.0); Mean Corpuscular Hemoglobin 28.8 pg (27.0-31.0); Mean Corpuscular Volume 90.6 fL (78.0-98.0); Platelet Count 207 thou/uL (130-400); RBC Distribution Width 15.8 % (11.5-14.5); Red Blood Cell (RBC) Count 2.64 mill/uL (4.70-6.10)
[2020-06-15 05:20] LABS: Anion Gap 12 mmol/L (10-20); BUN (Urea Nitrogen) 18 mg/dL (8.4-25.7); Calc. Creatinine Clearance 55 mL/min (70-130); Calcium 8.7 mg/dL (7.8-10.44); Carbon Dioxide 27 mmol/L (23-31); Chloride 104 mmol/L (98-107); Estimated GFR-MDRD Greater than 90; Glucose 83 mg/dL (83-110); Potassium 4.7 mmol/L (3.5-5.1); Sodium 138 mmol/L (136-145)
[2020-06-15] MEDS: Doxycycline 100 MG CAP PO SCH ×2 (09:44→21:25)
[2020-06-15] MEDS: Cefdinir 300 MG CAP PO SCH ×2 (09:44→21:25)
[2020-06-15] MEDS: Famotidine 20 MG TAB PO SCH (09:44)
--- NOTE | 2020-06-15 13:36 | PDOC.HOSPP ---
- Subjective Encounter Date: 06/15/20 Encounter Time: 10:45 Subjective: is eating his breakfast, no c/o sob or chest pain responds well to verbal stimuli - Objective Vital Signs & Weight: Vital Signs (12 hours) Temp Pulse Resp BP BP Pulse Ox 06/15/20 11:30 98 F 64 18 153/68 H 98 06/15/20 07:40 97.8 F 91 18 136/62 99 06/15/20 03:46 97.6 F 65 16 167/74 H 99 Weight Admit Weight 139 lb 12.369 oz Weight 152 lb 9.6 oz I&O: 06/14/20 06/15/20 06/16/20 06:59 06:59 06:59 Intake Total 1204 1320 Output Total 650 1075 Balance 554 245 Result Diagrams: 06/15/20 04:00 06/15/20 04:00 Additional Labs: Accuchecks 06/15/20 06/14/20 06/14/20 11:18 20:21 17:22 POC Glucose 104 H 84 71 Hospitalist ROS - Medication Medications: Active Medications Generic Name Dose Route Start Last Admin Trade Name Freq PRN Reason Stop Dose Admin Acetaminophen/Codeine Phosphate 1 tab 06/08/20 08:41 06/14/20 02:18 Acetaminophen/Codeine 30-300mg Tablet PO 1 tab Q4H PRN Administration Mild Pain (1-3) Acetaminophen/Codeine Phosphate 2 tab 06/08/20 08:41 06/12/20 03:28 Acetaminophen/Codeine 30-300mg Tablet PO 2 tab Q4H PRN Administration Moderate Pain (4-6) Atorvastatin Calcium 40 mg 06/07/20 21:00 06/14/20 20:17 Atorvastatin Calcium 40 Mg Tab PO 40 mg HS TARAN Administration Bisacodyl 10 mg 06/14/20 08:26 06/14/20 09:41 Bisacodyl 10 Mg Supp MA 10 mg DAILYPRN PRN Administration Constipation Cefdinir 300 mg 06/09/20 21:00 06/15/20 09:44 Cefdinir 300 Mg Cap PO 300 mg BID TARAN Administration Doxycycline Hyclate 100 mg 06/09/20 21:00 06/15/20 09:44 Doxycycline 100 Mg Cap PO 100 mg BID TARAN Administration Famotidine 20 mg 06/06/20 09:00 06/15/20 09:44 Famotidine 20 Mg Tab PO 20 mg DAILY TARAN Administration Sodium Chloride 10 ml 06/09/20 21:00 06/15/20 09:44 Flush - Normal Saline 10 Ml Syringe IVF 10 ml Q12HR TARAN Administration - Exam General Appearance: awake alert Eye: PERRL, anicteric sclera ENT: no oropharyngeal lesions, moist mucosa Neck: supple, no JVD Heart: RRR, no murmur Respiratory: no wheezes, no rales, rhonchi Gastrointestinal: soft, non-tender, non-distended, normal bowel sounds Extremities: no cyanosis, no edema Neurological: cranial nerve grossly intact, no focal deficits Hosp A/P (1) Pneumonia Code(s): J18.9 - PNEUMONIA, UNSPECIFIED ORGANISM Status: Acute Qualifiers: Laterality: left Lung location: lower lobe of lung (2) Hyperlipidemia Code(s): E78.5 - HYPERLIPIDEMIA, UNSPECIFIED Status: Chronic Qualifiers: Hyperlipidemia type: unspecified Qualified Code(s): E78.5 - Hyperlipidemia, unspecified (3) Metabolic encephalopathy Code(s): G93.41 - METABOLIC ENCEPHALOPATHY Status: Resolved (4) Syncopal episodes Code(s): R55 - SYNCOPE AND COLLAPSE Status: Resolved Qualifiers: Syncope type: unspecified Qualified Code(s): R55 - Syncope and collapse (5) Anemia Code(s): D64.9 - ANEMIA, UNSPECIFIED Status: Chronic Qualifiers: Anemia type: unspecified cause (6) CHF (congestive heart failure) Code(s): I50.9 - HEART FAILURE, UNSPECIFIED Status: Chronic Qualifiers: Heart failure type: diastolic Heart failure chronicity: chronic Qualified Code(s): I50.32 - Chronic diastolic (congestive) heart failure (7) Dementia Code(s): F03.90 - UNSPECIFIED DEMENTIA WITHOUT BEHAVIORAL DISTURBANCE Status: Chronic Qualifiers: Dementia type: Alzheimer's disease (8) History of brain tumor Code(s): Z87.898 - PERSONAL HISTORY OF OTHER SPECIFIED CONDITIONS Status: C hronic (9) Mobitz (type) II atrioventricular block Code(s): I44.1 - ATRIOVENTRICULAR BLOCK, SECOND DEGREE Status: Acute - Plan is on omnicef and doxy, nebs for pna s/p dual chamber pcm for mobitz type 2 h.block this admission PT to mobilize as tolerated may dc iv fluids if he is taking good oral intake hemostable, dc planning
[2020-06-15] MEDS: Atorvastatin Calcium 40 MG TAB PO SCH (21:25)
[2020-06-16] MEDS: Famotidine 20 MG TAB PO SCH (09:30)
[2020-06-16] MEDS: Cefdinir 300 MG CAP PO SCH (09:30)
[2020-06-16] MEDS: Doxycycline 100 MG CAP PO SCH (09:30)
--- NOTE | 2020-06-16 14:19 | PDOC.DS.DS ---
Provider - Provider Date of Admission: 06/04/20 14:15 Date of Discharge: 06/16/20 Admitting Provider: José Miguel Escobedo MD Primary Care Physician: Unknown Course - Hospital Course Hospital Course: The patient is an 89-year-old male with past medical history of hypertension, hyperlipidemia, diabetes mellitus type 2, diverticulosis, BPH, and aortic aneurysm who was sent to the ER after being found down by his family. The patient was found to be hypotensive and dehydrated and work-up in the emergency department revealed evidence of pneumonia. Patient was admitted to the hospital for further evaluation. He was found to be bradycardic and EKG revealed evidence of type II AV block. Cardiology service consulted and the patient was managed with pacemaker placement. Chronic anemia was also noted and iron studies revealed evidence of anemia due to chronic disease. No transfusion was administered as his hemoglobin level was greater than 7. GI recommended no endoscopic intervention. Resuscitation Status: 06/04/20 16:09 Resuscitation Status Routine Resuscitation Status: DNAR: NO Resuscitation Discussed with: Patient's DAughter Radha Orosco. Additional comments: SHe indicates the patient would not want any procedures or surgeries. - Labs Lab Results: 06/15/20 04:00 06/15/20 04:00 Abnormal Lab Results - Last 48 hrs 06/14/20 19:49: WBC 4.5 L, RBC 2.64 L, Hgb 7.6 L, Hct 23.8 L, RDW 15.7 H, MPV 6.7 L 06/15/20 04:00: RBC 2.64 L, Hgb 7.6 L, Hct 23.9 L, MCHC 31.8 L, RDW 15.8 H, MPV 7.0 L Microbiology - Entire Visit 06/14/20 10:55 Rectum Stool Occult Blood (JOSE) - Final 06/04/20 14:30 Venous blood - Right Hand Blood Culture - Final NO GROWTH IN 5 DAYS 06/04/20 13:56 Venous blood - Right Hand Blood Culture - Final NO GROWTH IN 5 DAYS - Physical Exam Vitals: Vital Signs (12 hours) Temp Pulse Resp BP BP Pulse Ox 06/16/20 11:57 97.4 F L 61 16 154/65 H 98 06/16/20 07:37 98 06/16/20 07:20 97.4 F L 62 16 159/70 H 98 06/16/20 04:33 97.8 F 82 18 175/88 H 100 Weight Admit Weight 139 lb 12.369 oz Weight 152 lb Physical Exam: The patient was seen and examined on the day of discharge. Problem - Problem (1) Mobitz (type) II atrioventricular block Code(s): I44.1 - ATRIOVENTRICULAR BLOCK, SECOND DEGREE Status: Acute (2) Pneumonia Code(s): J18.9 - PNEUMONIA, UNSPECIFIED ORGANISM Status: Acute Qualifiers: Laterality: left Lung location: lower lobe of lung (3) Sepsis Code(s): A41.9 - SEPSIS, UNSPECIFIED ORGANISM Status: Resolved (4) KIRSTY (acute kidney injury) Code(s): N17.9 - ACUTE KIDNEY FAILURE, UNSPECIFIED Status: Acute (5) Elevated troponin Code(s): R79.89 - OTHER SPECIFIED ABNORMAL FINDINGS OF BLOOD CHEMISTRY Status: Acute (6) Lactic acidosis Code(s): E87.2 - ACIDOSIS Status: Acute (7) Dementia Code(s): F03.90 - UNSPECIFIED DEMENTIA WITHOUT BEHAVIORAL DISTURBANCE Status: Chronic Qualifiers: Dementia type: Alzheimer's disease (8) Hyperlipidemia Code(s): E78.5 - HYPERLIPIDEMIA, UNSPECIFIED Status: Chronic Qualifiers: Hyperlipidemia type: unspecified Qualified Code(s): E78.5 - Hyperlipidemia, unspecified - Time spent with Patient (mins): 34 Plan - Discharge Medications Prescriptions: Aspirin [Aspirin EC] 81 mg PO DAILY #30 tablet. metFORMIN [Glucophage] 500 mg PO BID-WM #60 tab Atorvastatin Calcium [Lipitor] 40 mg PO HS #30 tab Cefdinir [Omnicef] 300 mg PO BID #10 cap Doxycycline [Vibramycin] 100 mg PO BID #10 cap Home Medications: Medication Instructions Recorded Confirmed Type Furosemide [Lasix] 10 mg PO PRN PRN 06/05/20 06/05/20 History Aspirin [Aspirin EC] 81 mg PO DAILY #30 tablet. 06/16/20 Rx Atorvastatin Calcium [Lipitor] 40 mg PO HS #30 tab 06/16/20 Rx Cefdinir [Omnicef] 300 mg PO BID #10 cap 06/16/20 Rx Doxycycline [Vibramycin] 100 mg PO BID #10 cap 06/16/20 Rx metFORMIN [Glucophage] 500 mg PO BID-WM #60 tab 06/16/20 Rx Allergies: No Known Drug Allergies Allergy (Verified 06/09/16 18:13) - Follow up Plan Referrals: Cardiac Rehab - [facility] [Outside] - 7 Days (Your doctor has ordered outpatient cardiac rehab for you to begin within 1-2 weeks after you go home from the hospital. The location nearest to you is the [facility]. We will call you in 3-5 days to get you scheduled for your evaluation. If you do not receive a call, please reach out to at [phone] and request an appointment.) [facility] [Outside] (group home Placement.) Unknown,Unknown [Primary Care Provider] - Disposition: [facility] FACILITY Quality - Care Measures CORE MEASURES:: N/A
[2020-06-16 15:46] VITALS: BP 153/66; TEMP 97.8
== END 2020-06-16 16:19 | DRG 853 ==
LOC: ERS 10:34 → ERHOLD 14:15 → 2NO 20:35 → UNDODISIN 20:50
PROVIDERS: ADMIT Internal Medicine; ATTEND Internal Medicine
PROC: 0JH606Z Insertion of Pacemaker, Dual Chamber into Chest Subcutaneous Tissue and Fascia, Open Approach (ICD-10-PCS; principal; 2020-06-10)
PROC: 02H63JZ Insertion of Pacemaker Lead into Right Atrium, Percutaneous Approach (ICD-10-PCS; 2020-06-10)
PROC: 02HK3JZ Insertion of Pacemaker Lead into Right Ventricle, Percutaneous Approach (ICD-10-PCS; 2020-06-10)
PROC: 4A023N8 Measurement of Cardiac Sampling and Pressure, Bilateral, Percutaneous Approach (ICD-10-PCS; 2020-06-12)
PROC: B2111ZZ Fluoroscopy of Multiple Coronary Arteries using Low Osmolar Contrast (ICD-10-PCS; 2020-06-12)
DX: A41.9 Sepsis, unspecified organism (principal); J18.9 Pneumonia, unspecified organism; N17.9 Acute kidney failure, unspecified; E87.2 Acidosis; J44.0 Chronic obstructive pulmonary disease with (acute) lower respiratory infection; I50.32 Chronic diastolic (congestive) heart failure; I13.0 Hypertensive heart and chronic kidney disease with heart failure and stage 1 through stage 4 chronic kidney disease, or unspecified chronic kidney disease; I31.3 Pericardial effusion (noninflammatory); Z66 Do not resuscitate; Z20.828 Contact with and (suspected) exposure to other viral communicable diseases; I44.1 Atrioventricular block, second degree; G30.9 Alzheimer's disease, unspecified; F02.80 Dementia in other diseases classified elsewhere, unspecified severity, without behavioral disturbance, psychotic disturbance, mood disturbance, and anxiety; E78.5 Hyperlipidemia, unspecified; N40.0 Benign prostatic hyperplasia without lower urinary tract symptoms; E16.2 Hypoglycemia, unspecified; R00.1 Bradycardia, unspecified; E78.00 Pure hypercholesterolemia, unspecified; D63.1 Anemia in chronic kidney disease; N18.9 Chronic kidney disease, unspecified; I48.91 Unspecified atrial fibrillation; Z23 Encounter for immunization; Z91.19 Patient's noncompliance with other medical treatment and regimen; Z87.891 Personal history of nicotine dependence; Z87.898 Personal history of other specified conditions; Z79.899 Other long term (current) drug therapy
CPT/HCPCS: 33208; 33215; 36415; 36416; 51701; 70450; 71045; 72125; 80048; 80053; 80061; 81003; 82274; 82550; 82728; 83540; 83550; 83605; 84443; 84484; 85025; 85384; 86850; 86900; 86901; 87040; 87635; 90471; 90662; 93005; 93010; 93306; 93798; 96365; 96367; 96375; 97139; 99152; 99153; C1785; C1898; G0008; J0456; J0690; J0696; J1580; J1650; J2001; J2250; J3010; J3370; J3490; J7070; U0003

== ENCOUNTER 2020-07-14 12:24 | Emergency (ER) | payer MEDICARE ==
--- NOTE | 2020-07-14 13:00 | RAD ---
Chest AP view INDICATION: Weakness and lethargy and abdominal pain with history of Covid positive status COMPARISON: Prior exam dated July 03, 2020 FINDINGS: Lungs: No acute infiltrate is demonstrated. The lungs are mildly hyperinflated. Cardiac silhouette: The cardiomediastinal silhouette appears within normal limits. Pulmonary vasculature: Normal Pleural spaces: No pleural effusion or pneumothorax is demonstrated. Upper abdomen: No abnormality seen. Osseous structures: There is stable deformity involving the distal left clavicle. There is scattered degenerative and osteoarthritic change present. Additional findings: Dual-lead pacemaker is unchanged. IMPRESSION: No acute cardiopulmonary abnormality.
[2020-07-14 13:12] LABS: #Eosinphils 0.5 thou/uL (0.0-0.7); #Lymphocytes 1.6 thou/uL (1.20-3.40); #Monocytes 0.3 thou/uL (0.11-0.59); %Basophils 0.7 % (0.0-1.0); %Eosinophils 10.5 % (0.0-10.0); %Lymphocytes 36.6 % (21.0-51.0); %Neutrophils 46.3 % (42.0-75.0); Hemoglobin 8.8 g/dL (14.0-18.0); Mean Corpuscular HGB CONC 31.7 g/dL (32.0-36.0); Mean Corpuscular Hemoglobin 27.9 pg (27.0-31.0); Mean Corpuscular Volume 87.8 fL (78.0-98.0); Mean Platelet Volume 7.4 fL (7.4-10.4); Platelet Count 205 thou/uL (130-400); RBC Distribution Width 15.6 % (11.5-14.5); Red Blood Cell (RBC) Count 3.17 mill/uL (4.70-6.10); White Blood Cell (WBC) Count 4.4 thou/uL (4.8-10.8)
[2020-07-14] MEDS ORDERED: Iopamidol-370 76% 500 ML 1 ML ONE (13:28)
[2020-07-14 13:43] LABS: ALT (SGPT) 16 U/L (8-55); AST (SGOT) 29 U/L (5-34); Albumin 3.8 g/dL (3.4-4.8); Alkaline Phosphatase 91 U/L (40-110); Anion Gap 16 mmol/L (10-20); BUN (Urea Nitrogen) 23 mg/dL (8.4-25.7); Bilirubin, Total 0.3 mg/dL (0.2-1.2); Calc. Creatinine Clearance 0 mL/min (70-130); Calcium 8.8 mg/dL (7.8-10.44); Carbon Dioxide 19 mmol/L (23-31); Chloride 103 mmol/L (98-107); Globulin 4.1 g/dL (2.4-3.5); Glucose 105 mg/dL (83-110); Lipase 46 U/L (8-78); Potassium 4.9 mmol/L (3.5-5.1); Protein, Total 7.9 g/dL (5.8-8.1); Sodium 133 mmol/L (136-145)
--- NOTE | 2020-07-14 15:15 | CT ---
CT Brain WO Con: 07/14/2020 2:50 PM CLINICAL HISTORY: History of fall and generalized weakness. IMAGING TECHNIQUE: Multiple CT images were obtained of the brain without IV contrast. COMPARISON: Prior exam dated June 04, 2020 FINDINGS: BRAIN: Evidence of acute infarct: None. Evidence of chronic ischemic change:Stable moderate to severe chronic small vessel white matter ische brittany change. Evidence of intracranial hemorrhage: None. Evidence of brain volume loss:Moderate Evidence of midline shift: Third ventricle and septum pellucidum are midline. Ventricles: Normal. No hydrocephalus. SKULL: Intact. VISUALIZED PARANASAL SINUSES: Mild mucosal thickening in the ethmoid air cells. Mild mucosal thicken ing in the right frontal sinus. Remaining paranasal sinuses are clear. MASTOID AIR CELLS: Clear. EXTRACRANIAL SOFT TISSUES: The kenaitze lenses have been replaced. IMPRESSION: No acute intracranial abnormality.
--- NOTE | 2020-07-14 15:26 | CT ---
CT OF THE ABDOMEN AND PELVIS WITH IV CONTRAST INDICATION: 89-year-old male with abdominal pain COMPARISON: Prior CT the abdomen and pelvis dated October 15, 2016 and a CTA aortic dissection protocol dated February 01, 2020 FINDINGS: ABDOMEN: Lung bases: There is stable scarring within the right lower lobe. Liver: No focal lesion. Gallbladder: Normal appearing. 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 Adrenal glands: Normal. Spleen: Normal. Kidneys and ureters: Normal. No hydronephrosis. Vasculature: There is stable infrarenal abdominal aortic aneurysm measuring 5.2 x 5.5 cm where previo usly it measured 5.6 x 5.1 cm. Lymph nodes:No lymphadenopathy. Free fluid in abdomen:No free fluid is evident. PELVIS: Small and large bowel: There is a moderate amount retained stool within the colon. Small bowel is of normal caliber. Visualized stomach appears within normal limits. Appendix:Normal Bladder: Normal. Rectal and perirectal soft tissues:Normal. Reproductive structures: Normal. Free fluid in pelvis: No free fluid is evident. Lymphadenopathy pelvis: No lymphadenopathy is evident. Osseous structures: There is diffuse osteopenia. There is further loss of height involving wedge comp ression fracture of T10. No acute fracture is evident. There is scattered degenerative and osteoarthritic changes. Soft tissues:Normal. IMPRESSION: 1. Moderate amount of retained stool within colon. Recommend correlation for constipation. 2. Stable infrarenal abdominal aortic aneurysm. 3. Further loss of height of the wedge compression abnormality at T10. This was present on the January 182019 CTA evaluation. 4. 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
[2020-07-14 15:40] LABS: Bilirubin Negative (Negative); Blood, Urine Negative (Negative); Clarity Clear (Clear); Glucose, Urine (Dipstick) Normal (Negative); Ketone, Urine Negative (Negative); Leukocyte Negative Leu/uL (Negative); Nitrite Negative (Negative); Protein, Urine (Dipstick) Negative (Neg-Trace); Specific Gravity, Urine 1.013 (1.002-1.036); Urobilinogen Normal mg/dL (Less than 2); pH, Urine 5.5 (5.0-9.0)
== END 2020-07-14 19:28 | disposition home or self-care (01) ==
LOC: ERS 12:24
DX: K59.00 Constipation, unspecified (principal); E86.0 Dehydration; I11.0 Hypertensive heart disease with heart failure; I50.9 Heart failure, unspecified; J44.9 Chronic obstructive pulmonary disease, unspecified; E11.9 Type 2 diabetes mellitus without complications; Z79.899 Other long term (current) drug therapy
CPT/HCPCS: 36415; 70450; 71045; 74177; 80053; 81003; 83690; 83880; 84484; 85025; 93005; Q9967

== ENCOUNTER 2020-08-03 13:48 | Inpatient (IN) | payer MEDICARE, MEDICAID ==
--- NOTE | 2020-08-03 14:52 | RAD ---
PORTABLE CHEST: Date: 08/03/2020 HISTORY: Syncope and fall. COMPARISON: 07/14/2020 exam. FINDINGS: Heart size is borderline with pacemaker in place. Lungs are clear of any infiltrative process. Deform ity to the distal end of the clavicle is similar to the previous exam consistent with old injury. IMPRESSION: No active intrathoracic disease. POS: [facility]
[2020-08-03 14:55] LABS: #Eosinphils 0.1 thou/uL (0.0-0.7); #Lymphocytes 0.9 thou/uL (1.20-3.40); #Monocytes 0.4 thou/uL (0.11-0.59); %Basophils 0.3 % (0.0-1.0); %Eosinophils 2.8 % (0.0-10.0); %Lymphocytes 27.1 % (21.0-51.0); %Monocytes 10.8 % (0.0-10.0); Hemoglobin 8.3 g/dL (14.0-18.0); Mean Corpuscular HGB CONC 32.2 g/dL (32.0-36.0); Mean Corpuscular Hemoglobin 28.1 pg (27.0-31.0); Mean Corpuscular Volume 87.2 fL (78.0-98.0); Mean Platelet Volume 7.6 fL (7.4-10.4); Platelet Count 167 thou/uL (130-400); RBC Distribution Width 15.7 % (11.5-14.5); Red Blood Cell (RBC) Count 2.94 mill/uL (4.70-6.10); White Blood Cell (WBC) Count 3.4 thou/uL (4.8-10.8)
--- NOTE | 2020-08-03 14:56 | CT ---
CT OF CERVICAL SPINE PERFORMED WITHOUT CONTRAST ENHANCEMENT: Date: 08/03/2020 HISTORY: Neck pain status post fall. COMPARISON: CT examination of 06/04/2020. FINDINGS: Bones are demineralized. Radiographic changes of DISH. Prominent anterior osteophytic changes are see n. The facets are in normal alignment. There is mild right-sided foraminal narrowing at C2-3. Borderl ine right-sided foraminal narrowing at C4-5. Borderline right-sided foraminal narrowing at C6-7 level . There is no CT evidence for fracture. Lung apices are clear. IMPRESSION: No CT evidence of fracture of the cervical spine. POS: [facility]
--- NOTE | 2020-08-03 14:56 | CT ---
CT HEAD WITHOUT IV CONTRAST COMPARISON: 07/14/2020 HISTORY: Injury after a fall. Syncope. Patient found unconscious on porch. TECHNIQUE: Axial CT imaging at 5 mm intervals from vertex through skull base without contrast FINDINGS: There is decreased attenuation in the periventricular white matter which is nonspecific but likely re flective of chronic small vessel ischemic changes. There is mild cerebral volume loss. The ventricular system is normal in size, shape, and position for the degree of sulcal atrophy. There is no evidence of an acute infarction, hemorrhage, mass effect, or midline shift. Skull base has a normal CT appearance. Mucosal thickening seen in ethmoid air cells bilaterally. Mastoid air cells are clear. Osseous structures appear intact. No calvarial fracture is seen. CT head is unchanged compared to prior exam. IMPRESSION: 1. No acute intracranial abnormality demonstrated. 2. Stable chronic changes.
[2020-08-03 15:38] LABS: Albumin 3.3 g/dL (3.4-4.8)
[2020-08-03 15:39] LABS: Chloride 107 mmol/L (98-107); Potassium 4.1 mmol/L (3.5-5.1); Sodium 138 mmol/L (136-145)
[2020-08-03 15:40] LABS: Calcium 8.4 mg/dL (7.8-10.44)
[2020-08-03 15:41] LABS: Glucose 146 mg/dL (83-110); Protein, Total 7.3 g/dL (5.8-8.1)
[2020-08-03 15:42] LABS: Anion Gap 13 mmol/L (10-20); Bilirubin, Total 0.5 mg/dL (0.2-1.2); Carbon Dioxide 22 mmol/L (23-31)
[2020-08-03 15:43] LABS: Alkaline Phosphatase 79 U/L (40-110)
[2020-08-03 15:44] LABS: Calc. Creatinine Clearance 0 mL/min (70-130)
[2020-08-03 15:45] LABS: BUN (Urea Nitrogen) 19 mg/dL (8.4-25.7)
[2020-08-03 15:46] LABS: AST (SGOT) 17 U/L (5-34)
[2020-08-03 15:47] LABS: ALT (SGPT) Less than 7 U/L (8-55)
[2020-08-03 16:31] LABS: CKMB 0.9 ng/mL (0-6.6)
[2020-08-03] MEDS ORDERED: Aspirin Chewable 81 MG TAB ONE (17:10)
--- NOTE | 2020-08-03 17:18 | PDOC.HHP ---
Hospitalist HPI - History of Present Illness Syncope History of Present Illness: The majority of the H&P was taken from the ER record and the patient's daughter via telephone due to the patient's history of dementia. 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 The patient has had syncopal episodes in the past related to hypotension. The patient was recently discharged from our hospital on 06/16/2020 where he was found to have a heart block and had a pacemaker insertion. He was discharged to [facility]. He did well at the [facility] and was released home on July 13, 2020. According to his daughter, the patient has been doing fairly well at home, although he experience a mechanical fall in which he bumped his head, but has had no residual effects. Then this afternoon, the patient was sitting outside on the porch. The patient's son-in-law heard a "thud" and went outside to check on the patient and found him down on the ground, unconscious. The patient awoke and appeared to be confused and disoriented. EMS was called. EMS documented the patient was found to be in a paced rhythm, heart rate in the 70s. Documented orthostatic hypotension. Given a 500 ml bolus of normal saline. The patient's only documented complaint was right knee pain. ED Course: VITAL SIGNS [facility] Aug 03, 2020 13:50 RACH Gonzales Kailey BP: 141/74, MAP: 96, Pulse: 75, Resp: 15, Temp: 97.3 (Oral), O2 sat: 95 on (Room Air), Time: 08/03/2020 13:50. VITAL SIGNS [facility] Aug 03, 2020 16:58 RACH Calvin Jeffery BP: 151/72, MAP: 98, Pulse: 60, Resp: 13, O2 sat: 96 on (Room Air), Time: 08/03/2020 16:58. VITAL SIGNS [facility] Aug 03, 2020 17:07 RACH Braden Amanda BP: 156/70, Pulse: 61, Resp: 12, Temp: 97.5, Pain: 0, O2 sat: 100, Time: 08/03/2020 17:07. Medications: aspirin oral 325 mg Oral Given 17:13 08/03/2020 Hospitalist ROS - Review of Systems ROS unobtainable: due to mental status All other systems reviewed; all pertinent +/- noted in HPI/Subj - Medication Medications: Medication Instructions Recorded Confirmed Type Furosemide [Lasix] 10 mg PO PRN PRN 06/05/20 06/05/20 History Aspirin [Aspirin EC] 81 mg PO DAILY #30 tablet. 06/16/20 Rx Atorvastatin Calcium [Lipitor] 40 mg PO HS #30 tab 06/16/20 Rx metFORMIN [Glucophage] 500 mg PO BID-WM #60 tab 06/16/20 Rx Allergies: NKDA CODE STATUS: DNAR Confirmed by his daughter Radha Orosco via telephone. [phone] Hospitalist History - Past Medical History Source: family, RN notes reviewed, jail record Cardiac: reports: CHF (Preserved ejection fraction), Hyperlipidemia, Other (Abdominal aortic aneurysm, second-degree type II AV block, status post pacemaker) Pulmonary: reports: COPD DIAGRAMMER: reports: Dementia (Baseline ANO x1, follows commands), Other (Brain tumor?) Renal/: reports: Benign prostatic enlarg. Endocrine: reports: Diabetes (Type II [id number]) - Past Surgical History Past Surgical History: reports: Other (Status post pacemaker insertion 05/2020) - Family History Other Family History: Unable to obtain from daughter or patient at bedside due to patient's mental status - Social History Smoking Status: Former smoker ([id number] history) Alcohol: reports: None Drugs: reports: marijuana (Former user) Living Situation: With Family Occupation: Does not work Activity level: uses cane/walker - Exam General Appearance: NAD, awake alert. negative: ill appearing General - other findings: Alert to self, baseline per family Eye: PERRL, anicteric sclera ENT: normocephalic atraumatic, dry oral mucosa ENT - other findings: Hold healing abrasion to scalp Neck: supple, no JVD, no lymphadenopathy Heart: RRR, no gallops, no rubs, normal peripheral pulses, II/IV Respiratory: CTAB, no wheezes, no rales, no ronchi (Hey friend how are you), no tachypnea (I am good) Respiratory - other findings: Diminished Gastrointestinal: soft, non-tender, non-distended, normal bowel sounds, no bruit, no guarding, no rigidity Extremities: no cyanosis, no edema Skin: no rashes Neurological: cranial nerve grossly intact, no focal deficits Musculoskeletal: diffuse muscle atrophy Psychiatric: normal affect. negative: A&O x 3 (Alert and oriented to self, baseline per family, follows commands) Hospitalist Results - Labs Result Diagrams: 08/03/20 14:35 08/03/20 14:35 Lab results: WBC 3.4 thou/uL (4.8-10.8) L 08/03/20 14:35 Hgb 8.3 g/dL (14.0-18.0) L 08/03/20 14:35 Hct 25.6 % (42.0-52.0) L 08/03/20 14:35 MCV 87.2 fL (78.0-98.0) 08/03/20 14:35 Plt Count 167 thou/uL (130-400) 08/03/20 14:35 Neutrophils % 59.0 % (42.0-75.0) 08/03/20 14:35 Sodium 138 mmol/L (136-145) 08/03/20 14:35 Potassium 4.1 mmol/L (3.5-5.1) 08/03/20 14:35 Chloride 107 mmol/L (98-107) 08/03/20 14:35 Carbon Dioxide 22 mmol/L (23-31) L 08/03/20 14:35 BUN 19 mg/dL (8.4-25.7) 08/03/20 14:35 Creatinine 1.33 mg/dL (0.7-1.3) H 08/03/20 14:35 Glucose 146 mg/dL (83-110) H 08/03/20 14:35 Calcium 8.4 mg/dL (7.8-10.44) 08/03/20 14:35 Total Bilirubin 0.5 mg/dL (0.2-1.2) 08/03/20 14:35 AST 17 U/L (5-34) 08/03/20 14:35 ALT Less than 7 U/L (8-55) L 08/03/20 14:35 Alkaline Phosphatase 79 U/L (40-110) 08/03/20 14:35 CK-MB (CK-2) 0.9 ng/mL (0-6.6) 08/03/20 14:35 Troponin I 0.047 ng/mL (< 0.028) H 08/03/20 14:35 Serum Total Protein 7.3 g/dL (5.8-8.1) 08/03/20 14:35 Albumin 3.3 g/dL (3.4-4.8) L 08/03/20 14:35 - EKG Interpretation EK lead EKG interpreted by Emergency Department Physician at time of study, 12 lead EKG shows, paced rhythm, Rate (beats per minute): 66, with no ectopics, ST segments normal, T waves, inverted, Leads affected: I, Leads affected: aVl, Leads affected: V1, Leads affected: V2, Bronson, left, Other findings include:, 100% pacemaker capture demonstrated, Clinical impression:, non-specific EKG. - Radiology Interpretation CT scan - head Status: report reviewed by me Additional Comment: IMPRESSION: 1. No acute intracranial abnormality demonstrated. 2. Stable chronic changes. CT Cspine IMPRESSION: No CT evidence of fracture of the cervical spine. Chest x-ray Status: report reviewed by me Additional Comment: IMPRESSION: No active intrathoracic disease Hospitalist H&P A/P - Problem (1) Syncope Code(s): R55 - SYNCOPE AND COLLAPSE Status: Acute (2) Elevated troponin Code(s): R77.8 - OTHER SPECIFIED ABNORMALITIES OF PLASMA PROTEINS Status: Acute (3) Anemia of chronic disease Code(s): D63.8 - ANEMIA IN OTHER CHRONIC DISEASES CLASSIFIED ELSEWHERE Status: Chronic (4) Abdominal aortic aneurysm Code(s): I71.4 - ABDOMINAL AORTIC ANEURYSM, WITHOUT RUPTURE Status: Chronic (5) Heart failure with preserved ejection fraction Code(s): I50.30 - UNSPECIFIED DIASTOLIC (CONGESTIVE) HEART FAILURE Status: Chronic (6) DM2 (diabetes mellitus, type 2) Status: Chronic (7) Hyperlipidemia Code(s): E78.5 - HYPERLIPIDEMIA, UNSPECIFIED Status: Chronic (8) Dementia Code(s): F03.90 - UNSPECIFIED DEMENTIA WITHOUT BEHAVIORAL DISTURBANCE Status: Chronic - Plan Plan: 89/M with [facility] syncope status post pacemaker insertion, CHF and AAA that presents for syncopal episode. Admit to telemetry, observation status. Expected length of stay less than 2 midnights. #Syncope Patient was sitting on porch, then had syncopal episode. CT brain/CT spine no acute process. EKG V paced 66 bpm negative T waves V1, V2 and aVL Troponin 0.047, CK-MB 0.9 Hemoglobin 8.3, hematocrit 25.6-appears stable Interrogate PM. Carotid doppler. Check orthostatic VS. Consult cardiology. Trend troponins, check BNP, TSH, mag, UA, UDS/UDS Check prolactin, CPK and lactic acid Fall precautions #Elevated troponin Presented initial troponin 0.047, appears baseline Trend troponins Continue aspirin Cardiac monitoring #Anemia of chronic disease Chronic, stable. Presented hemoglobin 8.3, hematocrit 25.6 No overt signs of bleeding #Abdominal aortic aneurysm Chronic. No abdominal bruit appreciated on assessment Patient presented with normal BP. #Heart failure with preserved ejection fraction Echo 06/09 -EF 50-55%, pacemaker wire right ventricle Mild MR/TR Diastolic dysfunction CXR no signs of fluid volume overload A: No signs Fluid overload Check BNP, trend troponins and check mag level #DM2 Presented BG 146 Takes metformin at home. Hold metformin. Start moderate ISS. Accu-Cheks AC at bedtime. #Hyperlipidemia Restart home dose atorvastatin Check FLP. #Dementia Baseline ANO x1, follows commands. Lives at home with family. Recently discharged from the [facility] on 07/13 status post pacemaker insertion for second-degree type II AV block. SCDs for DVT prophylaxis. No pharmacological DVT prophylaxis. No GI prophylaxis. CODE STATUS is DNAR. CODE STATUS confirmed with daughter, Radha Orosco via telephone at [phone]. Discussed the case with attending physician, Dr. Chase, who agrees with plan of care.
[2020-08-03 17:38] LABS: Bilirubin Negative (Negative); Blood, Urine Negative (Negative); Clarity Clear (Clear); Glucose, Urine (Dipstick) Normal (Negative); Ketone, Urine Negative (Negative); Leukocyte Negative Leu/uL (Negative); Nitrite Negative (Negative); Protein, Urine (Dipstick) Negative (Neg-Trace); Specific Gravity, Urine 1.016 (1.002-1.036); Urobilinogen Normal mg/dL (Less than 2); pH, Urine 5.5 (5.0-9.0)
[2020-08-03] MEDS ORDERED: Dextrose 5% in Water 1,000 ML IV PRN (17:59)
[2020-08-03] MEDS ORDERED: HumaLOG 300 UNITS/3 ML VIAL SC PRN ×2 (17:59)
[2020-08-03] MEDS ORDERED: Dextrose 50% Abboject 50 ML SYRINGE SLOW IVP PRN (17:59)
[2020-08-03] MEDS ORDERED: Acetaminophen 325 MG TAB PO PRN (18:02)
[2020-08-03] MEDS ORDERED: Senokot S 8.6-50 MG TAB PO PRN (18:02)
[2020-08-03] MEDS ORDERED: Calcium Carbonate 500 MG ChewTAB PO PRN (18:02)
[2020-08-03] MEDS ORDERED: HYDROcodone/Acetaminophen 5/325 mg Tablet PO PRN (18:02)
[2020-08-03] MEDS ORDERED: Ondansetron PF 4 MG/2 ML Vial IVP PRN (18:02)
[2020-08-03] MEDS ORDERED: Ondansetron ODT 4 MG TAB PO PRN (18:02)
[2020-08-03] MEDS ORDERED: Bisacodyl 5 MG TAB PO PRN (18:02)
[2020-08-03 18:23] LABS: Amphetamine Not Detected (NotDetected); Barbiturates Screen Not Detected (NotDetected); Benzodiazepine Screen Not Detected (NotDetected); Cocaine Metabolite Screen Not Detected (NotDetected); Medtox Control Line Valid? VALID (VALID); Medtox Reader # READER 1; Methadone Not Detected (NotDetected); Methamphetamine Not Detected (NotDetected); Opiate Screen Not Detected (NotDetected); Oxycodone Screen Not Detected (NotDetected); Phencyclidine (PCP) Not Detected (NotDetected); THC/Cannabinoid Screen Not Detected (NotDetected); Tricyclic Screen Not Detected (NotDetected)
[2020-08-03 19:11] LABS: Lactic Acid 1.1 mmol/L (0.5-2.2)
[2020-08-03 19:16] LABS: Acetaminophen Less than 6.0 mcg/mL (10.0-30.0); Alcohol Less than 10 mg/dL (Less than 10); CK (CPK) 77 U/L (30-200); Magnesium 1.8 mg/dL (1.6-2.6); Salicylate Less than 8.0 mg/dL (15.0-30.0)
[2020-08-03] MEDS ORDERED: Atorvastatin Calcium 40 MG TAB PO SCH (21:00)
[2020-08-03 23:39] LABS: Troponin I 0.068 ng/mL (< 0.028)
[2020-08-04 00:57] VITALS: BMI 20.7
[2020-08-04] MEDS ORDERED: hydrALAZINE 20 MG/ML VIAL SLOW IVP PRN (04:07)
[2020-08-04 05:08] LABS: Anion Gap 15 mmol/L (10-20); BUN (Urea Nitrogen) 17 mg/dL (8.4-25.7); Calc. Creatinine Clearance 41 mL/min (70-130); Calcium 8.5 mg/dL (7.8-10.44); Carbon Dioxide 18 mmol/L (23-31); Cardiac Risk 4.2 (Less than 4.5); Chloride 108 mmol/L (98-107); Cholesterol 178 mg/dl (< 200 Desired); Glucose 85 mg/dL (83-110); HDL Cholesterol 42 mg/dL (>60 Neg Risk); LDL Cholesterol, Calculated 115 mg/dL; Sodium 137 mmol/L (136-145); Triglycerides 107 mg/dL (Less than 150)
[2020-08-04 05:28] LABS: #Eosinphils 0.1 thou/uL (0.0-0.7); #Lymphocytes 1.1 thou/uL (1.20-3.40); #Monocytes 0.3 thou/uL (0.11-0.59); #Neutrophils 1.3 thou/uL (1.40-6.50); %Basophils 0.4 % (0.0-1.0); %Lymphocytes 37.1 % (21.0-51.0); %Monocytes 10.5 % (0.0-10.0); %Neutrophils 47.1 % (42.0-75.0); Mean Corpuscular HGB CONC 31.3 g/dL (32.0-36.0); Mean Corpuscular Hemoglobin 27.8 pg (27.0-31.0); Mean Corpuscular Volume 88.8 fL (78.0-98.0); Mean Platelet Volume 7.4 fL (7.4-10.4); Platelet Count 184 thou/uL (130-400); RBC Distribution Width 15.9 % (11.5-14.5); Red Blood Cell (RBC) Count 3.23 mill/uL (4.70-6.10); White Blood Cell (WBC) Count 2.8 thou/uL (4.8-10.8)
[2020-08-04 05:52] LABS: SARS-CoV-2 PCR by NAA Not Detected (NotDetected)
[2020-08-04] MEDS ORDERED: Labetalol HCl 100 MG/20 ML VIAL SLOW IVP SCH (06:00)
--- NOTE | 2020-08-04 09:23 | ULT ---
US Carotid Doppler STANDARD History: Syncope Comparison: None. Findings: Real-time grayscale, color and spectral analysis of the extracranial carotid and vertebral arteries was performed. No elevated peak systolic velocities within the internal carotid arteries. Moderate atherosclerotic p laque both carotid bulbs. Antegrade flow both vertebral arteries. Impression: No hemodynamically significant stenosis.
[2020-08-04] MEDS: Aspirin Chewable 81 MG TAB PO SCH (10:26)
--- NOTE | 2020-08-04 13:08 | CON ---
DATE OF CONSULTATION: HISTORY OF PRESENT ILLNESS: Radha Onofre is an 89-year-old black male with history of dementia. I first saw him in May 2020 when he was admitted after being found down at home next to his walker. Mr. Onofre could not recall what happened. Blood pressure was 88/44. He received IV fluids. His temperature was 95.5. His admission EKG showed a junctional rhythm with a rate of 53 per minute. He also had episodes of Mobitz type 1 and type 2 second-degree AV block. Ultimately, it was felt that a pacemaker needs to be placed. Pacemaker was placed on June 08, 2020. Five to six hours after the pacemaker inserted, he developed pleuritic chest pain. An echo showed a small pericardial effusion, but no evidence of tamponade. He was placed on colchicine and his pain resolved. However, it was then seen that he had loss of right ventricular capture and chest x-ray did not show any significant movement of the right ventricular lead. He had eaten that day and so after the weekend, he was taken back to the laboratory machinist and the right ventricular lead was repositioned. He now is again admitted after a fall at home. He was sitting outside on the porch and the patient's son-in-law heard a sound, went out and the patient was on the ground unconscious. He then awoke with somewhat more confused and disoriented than usually is. EMS was called. Heart rate was in the 70s. He was brought to the emergency room, given normal saline and admitted for further evaluation. Mr. Onofre cannot give me any history regarding the episode. He denies any chest pain, shortness of breath, peripheral edema, PND, orthopnea. PAST MEDICAL HISTORY: Dementia, diverticulosis, hyperlipidemia, diabetes, history of abdominal aortic aneurysm (4.[address] scan in 2017), pancreatic pseudocyst, history of suprasellar tumor. OPERATIONS: Pacemaker placement. MEDICATIONS: 1. Aspirin 81 daily. 2. Atorvastatin 40 at bedtime. 3. Omnicef 300 b.i.d. 4. Doxycycline 100 b.i.d. 5. Furosemide 10 mg p.r.n. 6. Metformin 500 mg b.i.d. ALLERGIES: NONE. SOCIAL HISTORY: Smoked a pack per day, but stopped 2 years ago. He also drinks heavily in the past, was stopped 2 years ago. REVIEW OF SYSTEMS: Unobtainable due to the patient's dementia. PHYSICAL EXAMINATION: VITAL SIGNS: Blood pressure 142/79 sitting, standing 100/59. HEENT: PERRL. NECK: Supple. CHEST: Clear. CARDIAC: S1 and S2 normal without any S3, S4, or murmurs. Carotid upstrokes normal without bruits. ABDOMEN: Normal bowel sounds without tenderness. EXTREMITIES: Revealed no clubbing, cyanosis, or edema. NEUROLOGIC: Grossly intact. SKIN: Warm and dry. The pacemaker incision is well healed. LABORATORY DATA: EKG reveals A-V pacing. Hemoglobin 9.0, hematocrit 28.7, white count 2800, platelets 184,000. Sodium 137, potassium 4.0, chloride 108, carbon dioxide 18, BUN 17, creatinine 1.10. Troponin I 0.070. Cholesterol 178, triglycerides 107, HDL 42, LDL 115. Urine drug screen is unremarkable. COVID negative. Pacemaker was interrogated and the atrial threshold 0.75 V, ventricular threshold 0.75 V. There was normal sensing. There have not been any significant recorded arrhythmias excep[ an episode of probable atrial fibrillation in early June. Certainly did not have any significant arrhythmias on the day of this recent syncope/fall. IMPRESSION: 1. Mechanical fall versus syncope. Certainly, this is not related to any type of arrhythmia. Pacemaker is working normally and no tachyarrhythmia was recorded by the device. He certainly could have had a simple fall, which he is prone to do even with a walker. He also could have had orthostatic syncope with somewhat orthostatic blood pressures at the present time. 2. Status post pacemaker placement in May 2020, working normally. 3. Junctional bradycardia as well as episodes of Mobitz type 1 and Mobitz type 2 prior to pacemaker placement. 4. Dementia. 5. History of hypertension. 6. Hypercholesterolemia, poorly controlled. 7. Diabetes. 8. Former smoker. 9. Former EtOH use. 10. Anemia. PLAN: Atorvastatin will be increased to 80 mg daily and he certainly may need another agent added to achieve a goal of LDL less than 70 and a diabetic. His pacemaker is working appropriately and this episode was not caused by bradycardia or tachycardia. Either was a simple fall or orthostatic syncope. Since his pacemaker is working well, I will follow from a distance. Job ID: [id number] [facility]
--- NOTE | 2020-08-04 15:22 | PDOC.HOSPP ---
- Subjective Encounter Date: 08/04/20 Encounter Time: 15:05 Subjective: f/u for syncopal episode and dementia. PM interrogation showing normal functioning device. Pt denies any new complaints but states he doesn't remember the syncopal episode. - Objective Vital Signs & Weight: Vital Signs (12 hours) Temp Pulse Resp BP BP BP BP 08/04/20 11:56 98.1 F 80 15 116/67 08/04/20 10:24 142/79 H 100/59 L 171/74 H 08/04/20 07:45 97.7 F 60 16 171/74 H 08/04/20 04:38 97.6 F 60 17 166/70 H Pulse Ox 08/04/20 11:56 99 08/04/20 10:24 08/04/20 07:45 100 08/04/20 04:38 99 Weight Admit Weight 136 lb 3.2 oz Weight 136 lb 3.2 oz I&O: 08/03/20 08/04/20 08/05/20 06:59 06:59 06:59 Intake Total 200 240 Output Total 400 Balance -200 240 Result Diagrams: 08/04/20 04:28 08/04/20 04:28 Additional Labs: Accuchecks 08/04/20 08/04/20 10:30 05:25 POC Glucose 105 H 83 Laboratory Tests 08/03/20 08/03/20 08/03/20 14:35 14:35 18:33 WBC 3.4 L Hgb 8.3 L Magnesium Troponin I 0.047 H 0.070 H B-Natriuretic Peptide Prolactin SARS-CoV-2 RNA (JOSI) 08/03/20 08/03/20 08/03/20 18:33 18:33 18:33 WBC Hgb Magnesium 1.8 Troponin I B-Natriuretic Peptide 406.1 H Prolactin 26.14 H SARS-CoV-2 RNA (JOSI) 08/03/20 08/03/20 22:00 23:07 WBC Hgb Magnesium Troponin I 0.068 H B-Natriuretic Peptide Prolactin SARS-CoV-2 RNA (JOSI) Not Detected Radiology Reviewed by me: Yes (Carotid sono - neg; CT brain - neg) EKG Reviewed by me: Yes (Tele - V-pacing) Hospitalist ROS - Medication Medications: Active Medications Generic Name Dose Route Start Last Admin Trade Name Freq PRN Reason Stop Dose Admin Aspirin 81 mg 08/04/20 09:00 08/04/20 10:26 Aspirin Chewable 81 Mg Tab PO 81 mg DAILY TARAN Administration - Exam General Appearance: NAD, awake alert Eye: PERRL, anicteric sclera ENT: normocephalic atraumatic, no oropharyngeal lesions Neck: supple, symmetric, no JVD, no thyromegaly, no lymphadenopathy Heart: RRR, no gallops, no rubs, normal peripheral pulses Heart - other findings: S1, S2 Respiratory: CTAB, no wheezes, no rales, no ronchi, normal chest expansion, no tachypnea Gastrointestinal: soft, non-tender, non-distended, normal bowel sounds, no palpable masses Extremities: no cyanosis, no clubbing, no edema Skin: normal turgor, no lesions Neurological: cranial nerve grossly intact, no new deficit Musculoskeletal: normal tone, generalized weakness Psychiatric: oriented to person Hosp A/P (1) Syncope Code(s): R55 - SYNCOPE AND COLLAPSE Status: Acute Plan: Exact etiology unclear, ? volume depletions, PM with normal function, re-assess orthostatic vitals (2) Anemia of chronic disease Code(s): D63.8 - ANEMIA IN OTHER CHRONIC DISEASES CLASSIFIED ELSEWHERE Status: Chronic Plan: Stable H/H, no active blood loss, serial monitoring (3) DM2 (diabetes mellitus, type 2) Status: Chronic (4) Dementia Code(s): F03.90 - UNSPECIFIED DEMENTIA WITHOUT BEHAVIORAL DISTURBANCE Status: Chronic Plan: Supportive mgmt, baseline (5) Mobitz (type) II atrioventricular block Code(s): I44.1 - ATRIOVENTRICULAR BLOCK, SECOND DEGREE Status: Chronic Plan: s/p PM placement with normal functioning device - Plan PT/OT, protective services social worker, out of bed/ambulate, DVT proph w/SCDs Stable currently Continue telemetry monitoring OOB with PT PM with normal function AM lab: BMP Convert to inpt status
[2020-08-04] MEDS: Atorvastatin Calcium 40 MG TAB PO SCH (20:56)
[2020-08-05 05:32] LABS: Anion Gap 14 mmol/L (10-20); BUN (Urea Nitrogen) 15 mg/dL (8.4-25.7); Calc. Creatinine Clearance 51 mL/min (70-130); Calcium 8.4 mg/dL (7.8-10.44); Carbon Dioxide 23 mmol/L (23-31); Chloride 105 mmol/L (98-107); Glucose 80 mg/dL (83-110); Potassium 3.9 mmol/L (3.5-5.1); Sodium 138 mmol/L (136-145)
[2020-08-05] MEDS: Aspirin Chewable 81 MG TAB PO SCH (08:51)
--- NOTE | 2020-08-05 15:38 | PDOC.HOSPP ---
- Subjective Encounter Date: 08/05/20 Encounter Time: 15:38 Subjective: Patient admitted to the hospital following a fall at home. He appears to be demented and really not able to provide any meaningful history. No family at the bedside. Per admitting record it appears that the patient was in his front yard when the family heard a loud sound. They came and found him on the floor and EMS was activated and he was brought here. He has had multiple imaging studies including CT of the head and CT of the cervical spine and these were all negative. Carotid ultrasound did not show any acute findings as well. The patient does live at home with his daughter and son-in-law who both take care of him. - Objective Vital Signs & Weight: Vital Signs (12 hours) Temp Pulse Resp BP BP BP BP 08/05/20 11:35 98.4 F 69 16 130/70 101/58 L 08/05/20 07:27 97.8 F 65 18 159/68 H 08/05/20 04:20 98.5 F 73 15 136/74 BP Pulse Ox 08/05/20 11:35 146/67 H 98 08/05/20 07:27 98 08/05/20 04:20 97 Weight Admit Weight 136 lb 3.2 oz Weight 136 lb 3.2 oz I&O: 08/04/20 08/05/20 08/06/20 06:59 06:59 06:59 Intake Total 200 820 Output Total 400 770 Balance -200 50 Result Diagrams: 08/04/20 04:28 08/05/20 04:30 Additional Labs: Accuchecks 08/05/20 08/05/20 08/04/20 10:59 05:32 20:20 POC Glucose 92 74 95 08/04/20 17:08 POC Glucose 109 H Radiology Reviewed by me: Yes EKG Reviewed by me: Yes Hospitalist ROS - Review of Systems Constitutional: reports: weakness Gastrointestinal: reports: nausea Neurological: reports: weakness - Medication Medications: Active Medications Generic Name Dose Route Start Last Admin Trade Name Freq PRN Reason Stop Dose Admin Aspirin 81 mg 08/04/20 09:00 08/05/20 08:51 Aspirin Chewable 81 Mg Tab PO 81 mg DAILY TARAN Administration Atorvastatin Calcium 80 mg 08/04/20 21:00 08/04/20 20:56 Atorvastatin Calcium 40 Mg Tab PO 80 mg HS TARAN Administration - Exam General Appearance: NAD, awake alert Eye: PERRL, anicteric sclera ENT: normocephalic atraumatic, no oropharyngeal lesions Neck: supple, symmetric, no JVD Heart: RRR, no murmur, no gallops, no rubs, normal peripheral pulses Respiratory: CTAB, no wheezes, no rales, no ronchi, normal chest expansion Gastrointestinal: soft, non-tender, non-distended, normal bowel sounds Neurological: cranial nerve grossly intact Musculoskeletal: normal tone Psychiatric: normal affect, normal behavior, oriented to person Hosp A/P (1) Syncope Code(s): R55 - SYNCOPE AND COLLAPSE Status: Acute (2) DM2 (diabetes mellitus, type 2) Status: Chronic (3) Dementia Code(s): F03.90 - UNSPECIFIED DEMENTIA WITHOUT BEHAVIORAL DISTURBANCE Status: Chronic Qualifiers: Dementia type: Alzheimer's (4) Hyperlipidemia Code(s): E78.5 - HYPERLIPIDEMIA, UNSPECIFIED Status: Chronic - Plan plan discussed w/ family, PT/OT 08/05/2020. No active issues seen. We will discuss with his family and hopefully plan on discharge from the next 24 hours.
[2020-08-05] MEDS: Atorvastatin Calcium 40 MG TAB PO SCH (20:51)
[2020-08-06] MEDS: Aspirin Chewable 81 MG TAB PO SCH (09:58)
--- NOTE | 2020-08-06 13:23 | PDOC.DS.DS ---
Provider - Provider Date of Admission: 08/04/20 15:21 Date of Discharge: 08/06/20 Admitting Provider: Jerry Chase MD Primary Care Physician: Unknown Course - Hospital Course Hospital Course: This is an 89-year-old patient who probably has some form of underlying dementia was brought into the hospital by family due to him having a fall that was unwitnessed. He was admitted for further evaluation and management. The patient had multiple imaging studies including CT of the head and also the cervical spine that did not show any findings. Carotid ultrasound did not show any findings to. I did call and speak with his daughter who did confirm that the fall was unwitnessed. However his evaluation has remained negative so far. I suspect that this patient got a little postural hypotension. I will ask case management to have home health with PT set up at home. I told the daughter to discontinue the use of diuretics and only use it as a as needed. He is going to discharge home today. Resuscitation Status: 08/03/20 18:02 Resuscitation Status Routine Co-Sign Provider: Resuscitation Status: DNAR: NO Resuscitation Discussed with: patients daughter Additional comments: Radha Orosco at [phone], confirmed DNAR status - Labs Lab Results: 08/04/20 04:28 08/05/20 04:30 - Physical Exam Vitals: Vital Signs (12 hours) Temp Pulse Pulse Pulse Resp BP BP 08/06/20 11:00 98.2 F 74 16 08/06/20 09:16 73 69 149/74 H 157/67 H 08/06/20 07:11 97.6 F 68 18 08/06/20 03:17 97.8 F 70 13 BP BP BP BP BP Pulse Ox 08/06/20 11:00 114/77 115/60 140/66 95 08/06/20 09:16 08/06/20 07:11 147/74 H 96 08/06/20 03:17 153/70 H 98 Weight Admit Weight 136 lb 3.2 oz Weight 136 lb 3.2 oz Physical Exam: The patient was seen and examined on the day of discharge. Problem - Problem (1) Syncope Code(s): R55 - SYNCOPE AND COLLAPSE Status: Acute (2) DM2 (diabetes mellitus, type 2) Status: Chronic (3) Dementia Code(s): F03.90 - UNSPECIFIED DEMENTIA WITHOUT BEHAVIORAL DISTURBANCE Status: Chronic Qualifiers: Dementia type: Alzheimer's (4) Hyperlipidemia Code(s): E78.5 - HYPERLIPIDEMIA, UNSPECIFIED Status: Chronic - Time spent with Patient (mins): 30 Plan - Discharge Medications Home Medications: Medication Instructions Recorded Confirmed Type Atorvastatin Calcium [Lipitor] 40 mg PO HS #30 tab 06/16/20 08/04/20 Rx metFORMIN [Glucophage] 500 mg PO BID-WM #60 tab 06/16/20 08/04/20 Rx Aspirin Chewable [Aspirin Chewable 81 mg PO DAILY tab 08/06/20 Rx Tablet] Atorvastatin Calcium [Lipitor] 80 mg PO HS tab 08/06/20 Rx Allergies: No Known Drug Allergies Allergy (Verified 08/04/20 01:19) - Discharge Instructions Activity:: Activity as Tolerated Nourishment:: Heart Healthy Diet Therapies:: Home Health, Physical Therapy Equipment/Supplies:: Not Applicable IV Therapy:: Not Applicable - Follow up Plan Referrals: Unknown,Unknown [Primary Care Provider] - Disposition: HOME HEALTH Quality - Care Measures CORE MEASURES:: N/A
[2020-08-06 15:18] VITALS: BP 158/70; TEMP 98.4
== END 2020-08-06 16:25 | disposition home health service (06) | DRG 312 ==
LOC: ERS 13:48 → ERHOLD 17:10 → 2NO 22:35 → OBSVTOIN 08-04 15:21 → 2NO 08-05 16:48
PROVIDERS: ADMIT Internal Medicine; ATTEND Hospitalist
DX: I95.1 Orthostatic hypotension (principal); I50.32 Chronic diastolic (congestive) heart failure; Z20.822 Contact with and (suspected) exposure to COVID-19; Z66 Do not resuscitate; E11.9 Type 2 diabetes mellitus without complications; F03.90 Unspecified dementia, unspecified severity, without behavioral disturbance, psychotic disturbance, mood disturbance, and anxiety; E78.5 Hyperlipidemia, unspecified; I71.4 Abdominal aortic aneurysm, without rupture; J44.9 Chronic obstructive pulmonary disease, unspecified; D63.8 Anemia in other chronic diseases classified elsewhere; M25.561 Pain in right knee; N40.0 Benign prostatic hyperplasia without lower urinary tract symptoms; I44.1 Atrioventricular block, second degree; E78.00 Pure hypercholesterolemia, unspecified; I11.0 Hypertensive heart disease with heart failure; Z95.1 Presence of aortocoronary bypass graft; Z79.82 Long term (current) use of aspirin; Z79.899 Other long term (current) drug therapy; Z79.84 Long term (current) use of oral hypoglycemic drugs; Z87.891 Personal history of nicotine dependence
CPT/HCPCS: 36415; 36416; 51701; 70450; 71045; 72125; 80048; 80053; 80061; 80306; 80307; 81003; 82550; 82553; 83605; 83735; 83880; 84146; 84443; 84484; 85025; 87635; 93005; 93880; 94760; G0378; U0003; U0005

== ENCOUNTER 2020-08-15 16:48 | Inpatient (IN) | payer MEDICARE, MEDICAID ==
[2020-08-15 17:35] LABS: #Lymphocytes 0.9 thou/uL (1.20-3.40); #Monocytes 0.3 thou/uL (0.11-0.59); #Neutrophils 2.7 thou/uL (1.40-6.50); %Basophils 1.2 % (0.0-1.0); %Eosinophils 0.9 % (0.0-10.0); %Lymphocytes 21.8 % (21.0-51.0); %Monocytes 7.5 % (0.0-10.0); %Neutrophils 68.7 % (42.0-75.0); Hemoglobin 9.6 g/dL (14.0-18.0); Mean Corpuscular HGB CONC 31.9 g/dL (32.0-36.0); Mean Corpuscular Hemoglobin 27.5 pg (27.0-31.0); Mean Platelet Volume 7.6 fL (7.4-10.4); Platelet Count 236 thou/uL (130-400); Red Blood Cell (RBC) Count 3.49 mill/uL (4.70-6.10)
[2020-08-15 18:07] LABS: Bilirubin Negative (Negative); Blood, Urine Negative (Negative); Clarity Clear (Clear); Glucose, Urine (Dipstick) Normal (Negative); Ketone, Urine 40 mg/dL (Negative); Leukocyte 250 Leu/uL (Negative); Nitrite Negative (Negative); Protein, Urine (Dipstick) 20 mg/dL (Neg-Trace); RBC/HPF 0-3 HPF (0-3); Specific Gravity, Urine 1.013 (1.002-1.036); Squamous Epithelial 0-3 HPF (0-3); Urobilinogen Normal mg/dL (Less than 2); pH, Urine 5.5 (5.0-9.0)
[2020-08-15 18:08] LABS: Bacteria/HPF 1+ HPF (None Seen)
[2020-08-15 18:28] LABS: ALT (SGPT) Less than 7 U/L (8-55); AST (SGOT) 20 U/L (5-34); Albumin 3.6 g/dL (3.4-4.8); Alkaline Phosphatase 106 U/L (40-110); Anion Gap 23 mmol/L (10-20); BUN (Urea Nitrogen) 24 mg/dL (8.4-25.7); Bilirubin, Total 0.6 mg/dL (0.2-1.2); Calc. Creatinine Clearance 0 mL/min (70-130); Carbon Dioxide 15 mmol/L (23-31); Chloride 103 mmol/L (98-107); Globulin 5.2 g/dL (2.4-3.5); Glucose 120 mg/dL (83-110); Potassium 5.5 mmol/L (3.5-5.1); Protein, Total 8.8 g/dL (5.8-8.1); Sodium 135 mmol/L (136-145)
[2020-08-15] MEDS ORDERED: cefTRIAXone\\ROCEPHIN 2 GM VIAL ONE (18:35)
[2020-08-15] MEDS ORDERED: HumaLOG 300 UNITS/3 ML VIAL SC PRN (20:28)
[2020-08-15] MEDS ORDERED: Dextrose 50% Abboject 50 ML SYRINGE SLOW IVP PRN (20:28)
[2020-08-15] MEDS ORDERED: Dextrose 5% in Water 1,000 ML IV PRN (20:28)
[2020-08-15] MEDS ORDERED: cloNIDine 0.1 MG TAB PO PRN (20:29)
[2020-08-15] MEDS ORDERED: Labetalol HCl 100 MG/20 ML VIAL SLOW IVP PRN (20:29)
[2020-08-15] MEDS ORDERED: HYDROcodone/Acetaminophen 5/325 mg Tablet PO PRN (20:29)
[2020-08-15] MEDS ORDERED: Ondansetron PF 4 MG/2 ML Vial IVP PRN (20:29)
[2020-08-15] MEDS ORDERED: Morphine 2 MG/ML VIAL SLOW IVP PRN (20:29)
[2020-08-15] MEDS ORDERED: Acetaminophen 325 MG TAB PO PRN (20:29)
[2020-08-15] MEDS ORDERED: hydrALAZINE 20 MG/ML VIAL SLOW IVP PRN (20:29)
[2020-08-15] MEDS ORDERED: Guaifenesin DM 100-10/5 ML UDCUP PO PRN (20:29)
[2020-08-15] MEDS ORDERED: Promethazine HCl 12.5 MG in Sodium Chloride 0.9% 50 ML IVPB PRN (20:29)
[2020-08-15] MEDS ORDERED: Electrolyte Replacement Protocol 1 EACH FS SCH (20:30)
[2020-08-15] MEDS: Sodium Chloride 0.9% 1,000 ML IV SCH (22:54)
[2020-08-15] MEDS: Famotidine 20 MG TAB PO SCH (22:55)
[2020-08-15] MEDS: Heparin 5,000 UNITS/ML VIAL SC SCH (22:55)
[2020-08-16 01:07] VITALS: BMI 21.7
[2020-08-16 05:23] LABS: SARS-CoV-2 PCR by NAA Not Detected (NotDetected)
[2020-08-16 06:18] LABS: #Eosinphils 0.1 thou/uL (0.0-0.7); #Lymphocytes 0.9 thou/uL (1.20-3.40); #Monocytes 0.4 thou/uL (0.11-0.59); %Basophils 0.5 % (0.0-1.0); %Eosinophils 3.2 % (0.0-10.0); %Lymphocytes 25.5 % (21.0-51.0); %Monocytes 10.6 % (0.0-10.0); %Neutrophils 60.1 % (42.0-75.0); Hemoglobin 8.2 g/dL (14.0-18.0); Mean Corpuscular HGB CONC 32.3 g/dL (32.0-36.0); Mean Corpuscular Hemoglobin 27.7 pg (27.0-31.0); Mean Corpuscular Volume 85.7 fL (78.0-98.0); Mean Platelet Volume 7.8 fL (7.4-10.4); Platelet Count 183 thou/uL (130-400); RBC Distribution Width 15.4 % (11.5-14.5); Red Blood Cell (RBC) Count 2.96 mill/uL (4.70-6.10); White Blood Cell (WBC) Count 3.3 thou/uL (4.8-10.8)
[2020-08-16 06:41] LABS: Anion Gap 13 mmol/L (10-20); BUN (Urea Nitrogen) 19 mg/dL (8.4-25.7); Calc. Creatinine Clearance 53 mL/min (70-130); Calcium 7.8 mg/dL (7.8-10.44); Carbon Dioxide 18 mmol/L (23-31); Chloride 110 mmol/L (98-107); Glucose 99 mg/dL (83-110); Magnesium 1.6 mg/dL (1.6-2.6); Sodium 137 mmol/L (136-145)
[2020-08-16] MEDS ORDERED: Magnesium 2 GM/50 ML 2 GM in Premix Bag 1 BAG IVPB SCH (07:45)
[2020-08-16] MEDS: Famotidine 20 MG TAB PO SCH ×2 (08:14→21:15)
[2020-08-16] MEDS: Heparin 5,000 UNITS/ML VIAL SC SCH ×2 (08:14→20:48)
[2020-08-16] MEDS ORDERED: Sodium Chloride 0.65% Nasal 44 ML BOT EA NARE PRN (08:45)
[2020-08-16] MEDS ORDERED: GUAIFENESIN SF SOLN 200 MG/10 ML UDCUP PO PRN (08:45)
[2020-08-16] MEDS ORDERED: Calcium Carbonate 500 MG ChewTAB PO PRN (08:45)
[2020-08-16] MEDS ORDERED: Ondansetron ODT 4 MG TAB PO PRN (08:45)
[2020-08-16] MEDS ORDERED: Benzonatate 100 MG CAP PO PRN (08:45)
[2020-08-16] MEDS ORDERED: Cepastat Lozenges 1 LOZ PO PRN (08:45)
[2020-08-16] MEDS ORDERED: Loratadine 10 MG TAB PO PRN (08:45)
[2020-08-16] MEDS ORDERED: Zolpidem Tartrate 5 MG TAB PO PRN (08:45)
[2020-08-16] MEDS ORDERED: Senokot S 8.6-50 MG TAB PO PRN (08:45)
[2020-08-16] MEDS ORDERED: Loperamide HCl 2 MG CAP PO PRN (08:45)
[2020-08-16] MEDS ORDERED: Bisacodyl 5 MG TAB PO PRN (08:45)
[2020-08-16] MEDS: Aspirin Chewable 81 MG TAB PO SCH (09:14)
[2020-08-16] MEDS: Atorvastatin Calcium 40 MG TAB PO SCH (09:14)
[2020-08-16] MEDS: Sodium Chloride 0.9% 1,000 ML IV SCH ×2 (15:53→21:15)
[2020-08-16] MEDS: metFORMIN 500 MG TAB PO SCH (17:23)
[2020-08-16] MEDS ORDERED: cefTRIAXone\\ROCEPHIN 1 GM in Sodium Chloride 0.9% 100 ML IVPB SCH (21:00)
[2020-08-16] MEDS ORDERED: Mirtazapine 15 MG TAB PO SCH (21:00)
[2020-08-17 06:42] LABS: #Eosinphils 0.1 thou/uL (0.0-0.7); #Lymphocytes 1.5 thou/uL (1.20-3.40); #Monocytes 0.3 thou/uL (0.11-0.59); #Neutrophils 2.3 thou/uL (1.40-6.50); %Basophils 0.4 % (0.0-1.0); %Lymphocytes 36.5 % (21.0-51.0); %Monocytes 6.3 % (0.0-10.0); %Neutrophils 53.9 % (42.0-75.0); Hemoglobin 8.6 g/dL (14.0-18.0); Mean Corpuscular HGB CONC 33.1 g/dL (32.0-36.0); Mean Corpuscular Hemoglobin 28.9 pg (27.0-31.0); Mean Corpuscular Volume 87.5 fL (78.0-98.0); Platelet Count 226 thou/uL (130-400); RBC Distribution Width 15.4 % (11.5-14.5); Red Blood Cell (RBC) Count 2.98 mill/uL (4.70-6.10); White Blood Cell (WBC) Count 4.2 thou/uL (4.8-10.8)
[2020-08-17 07:01] LABS: Anion Gap 12 mmol/L (10-20); BUN (Urea Nitrogen) 14 mg/dL (8.4-25.7); Calc. Creatinine Clearance 57 mL/min (70-130); Calcium 8.1 mg/dL (7.8-10.44); Carbon Dioxide 23 mmol/L (23-31); Chloride 110 mmol/L (98-107); Glucose 77 mg/dL (83-110); Potassium 3.9 mmol/L (3.5-5.1); Sodium 141 mmol/L (136-145)
[2020-08-17] MEDS: Heparin 5,000 UNITS/ML VIAL SC SCH (08:44)
[2020-08-17] MEDS: Famotidine 20 MG TAB PO SCH (08:44)
[2020-08-17] MEDS: Aspirin Chewable 81 MG TAB PO SCH (08:45)
[2020-08-17] MEDS: metFORMIN 500 MG TAB PO SCH ×2 (08:45→16:50)
[2020-08-17] MEDS: Atorvastatin Calcium 40 MG TAB PO SCH (08:45)
[2020-08-17] MEDS ORDERED: Folic Acid 1 MG TAB PO SCH (09:00)
[2020-08-17] MEDS ORDERED: Cyanocobalamin (Vitamin B-12) 1,000 MCG TAB PO SCH (09:00)
[2020-08-17] MEDS ORDERED: Megestrol Acetate 40 MG TAB PO SCH (09:00)
[2020-08-17 17:27] VITALS: BP 159/73; TEMP 98
== END 2020-08-17 18:03 | disposition home or self-care (01) | DRG 689 ==
LOC: ERS 16:48 → T4-A 19:30 → OBSVTOIN 08-16 17:17
PROVIDERS: ADMIT Internal Medicine; ATTEND Internal Medicine
DX: N30.00 Acute cystitis without hematuria (principal); G93.41 Metabolic encephalopathy; I13.0 Hypertensive heart and chronic kidney disease with heart failure and stage 1 through stage 4 chronic kidney disease, or unspecified chronic kidney disease; I50.32 Chronic diastolic (congestive) heart failure; E78.5 Hyperlipidemia, unspecified; E11.22 Type 2 diabetes mellitus with diabetic chronic kidney disease; J44.9 Chronic obstructive pulmonary disease, unspecified; I44.30 Unspecified atrioventricular block; E86.0 Dehydration; E87.5 Hyperkalemia; R62.7 Adult failure to thrive; F02.80 Dementia in other diseases classified elsewhere, unspecified severity, without behavioral disturbance, psychotic disturbance, mood disturbance, and anxiety; Z20.822 Contact with and (suspected) exposure to COVID-19; I71.4 Abdominal aortic aneurysm, without rupture; D63.1 Anemia in chronic kidney disease; G30.9 Alzheimer's disease, unspecified; Z79.899 Other long term (current) drug therapy; Z79.84 Long term (current) use of oral hypoglycemic drugs; Z79.82 Long term (current) use of aspirin; Z87.898 Personal history of other specified conditions
CPT/HCPCS: 36415; 36416; 51701; 71045; 80048; 80053; 81003; 81015; 83735; 84484; 85025; 87077; 87086; 87186; 87635; 93005; 96365; 96372; 96375; G0378; J0696; J1644; J3475; J3490; S0179; U0003; U0005

== ENCOUNTER 2020-08-18 14:32 | Emergency (ER) | payer MEDICARE, MEDICAID ==
[2020-08-18 16:26] LABS: #Eosinphils 0.1 thou/uL (0.0-0.7); #Monocytes 0.3 thou/uL (0.11-0.59); #Neutrophils 3.5 thou/uL (1.40-6.50); %Basophils 0.2 % (0.0-1.0); %Eosinophils 2.2 % (0.0-10.0); %Lymphocytes 20.9 % (21.0-51.0); %Neutrophils 70.6 % (42.0-75.0); Hemoglobin 8.8 g/dL (14.0-18.0); Mean Corpuscular HGB CONC 32.5 g/dL (32.0-36.0); Mean Corpuscular Hemoglobin 28.3 pg (27.0-31.0); Mean Corpuscular Volume 87.1 fL (78.0-98.0); Mean Platelet Volume 6.7 fL (7.4-10.4); Platelet Count 241 thou/uL (130-400); RBC Distribution Width 15.6 % (11.5-14.5); Red Blood Cell (RBC) Count 3.12 mill/uL (4.70-6.10); White Blood Cell (WBC) Count 4.9 thou/uL (4.8-10.8)
[2020-08-18 16:54] LABS: ALT (SGPT) Less than 7 U/L (8-55); AST (SGOT) 17 U/L (5-34); Albumin 3.4 g/dL (3.4-4.8); Alkaline Phosphatase 99 U/L (40-110); Anion Gap 11 mmol/L (10-20); BUN (Urea Nitrogen) 13 mg/dL (8.4-25.7); Bilirubin, Total 0.3 mg/dL (0.2-1.2); Calc. Creatinine Clearance 0 mL/min (70-130); Calcium 8.6 mg/dL (7.8-10.44); Carbon Dioxide 25 mmol/L (23-31); Chloride 109 mmol/L (98-107); Globulin 4.3 g/dL (2.4-3.5); Glucose 96 mg/dL (83-110); Protein, Total 7.7 g/dL (5.8-8.1); Sodium 141 mmol/L (136-145)
== END 2020-08-18 20:26 | disposition home or self-care (01) ==
LOC: ERS 14:32
DX: F03.90 Unspecified dementia, unspecified severity, without behavioral disturbance, psychotic disturbance, mood disturbance, and anxiety (principal); R53.1 Weakness; D53.9 Nutritional anemia, unspecified; I11.0 Hypertensive heart disease with heart failure; I50.9 Heart failure, unspecified; J44.9 Chronic obstructive pulmonary disease, unspecified; E11.9 Type 2 diabetes mellitus without complications; Z79.84 Long term (current) use of oral hypoglycemic drugs; Z79.899 Other long term (current) drug therapy
CPT/HCPCS: 36415; 80053; 85025; 93005

== ENCOUNTER 2020-08-24 21:17 | Emergency (ER) | payer MEDICARE, MEDICAID ==
[2020-08-24] MEDS ORDERED: Boostrix 0.5 ML (Tdap) VIAL ONE (22:02)
[2020-08-24 22:13] LABS: Bacteria/HPF None Seen HPF (None Seen); Bilirubin Negative (Negative); Blood, Urine Trace (Negative); Clarity Clear (Clear); Glucose, Urine (Dipstick) Normal (Negative); Ketone, Urine Negative (Negative); Leukocyte Negative Leu/uL (Negative); Mucous/LPF Rare LPF (<2+); Nitrite Negative (Negative); Protein, Urine (Dipstick) 30 mg/dL (Neg-Trace); RBC/HPF 0-3 HPF (0-3); Specific Gravity, Urine 1.015 (1.002-1.036); Squamous Epithelial 0-3 HPF (0-3); Urobilinogen Normal mg/dL (Less than 2); WBC/HPF 0-3 HPF (0-3); pH, Urine 5.5 (5.0-9.0)
--- NOTE | 2020-08-24 22:33 | CT ---
CT HEAD WITHOUT IV CONTRAST COMPARISON: 08/03/2020 HISTORY: Injury after a fall. Patient does not remember the incident. TECHNIQUE: Axial CT imaging at 5 mm intervals from vertex through skull base without contrast FINDINGS: There is decreased attenuation in the periventricular white matter which is nonspecific but likely re flective of chronic small vessel ischemic changes which have not progressed from prior study. There is mild cerebral volume loss. The ventricular system is normal in size, shape, and position for the degree of sulcal atrophy. There is no evidence of an acute infarction, hemorrhage, mass effect, or midline shift. Skull base has a normal CT appearance. Mucosal thickening is seen in a few ethmoidal air cells bilaterally with trace mucosal thickening lef t maxillary antrum. Osseous structures appear intact. No depressed calvarial fracture is seen There is prominent scalp so ft tissue swelling seen in the region of the vertex and extending inferiorly in the lateral right frontal parietal region and biparietal regions. IMPRESSION: 1. No acute intracranial abnormality demonstrated. 2. Chronic small vessel ischemic changes and cerebral volume loss. 3. Scalp hematoma.
[2020-08-24 23:25] LABS: #Eosinphils 0.2 thou/uL (0.0-0.7); #Lymphocytes 1.3 thou/uL (1.20-3.40); #Monocytes 0.6 thou/uL (0.11-0.59); #Neutrophils 3.2 thou/uL (1.40-6.50); %Basophils 0.3 % (0.0-1.0); %Lymphocytes 24.3 % (21.0-51.0); %Monocytes 11.9 % (0.0-10.0); %Neutrophils 60.6 % (42.0-75.0); Hemoglobin 8.6 g/dL (14.0-18.0); Mean Corpuscular HGB CONC 32.3 g/dL (32.0-36.0); Mean Corpuscular Hemoglobin 27.8 pg (27.0-31.0); Mean Platelet Volume 7.7 fL (7.4-10.4); Platelet Count 211 thou/uL (130-400); RBC Distribution Width 16.4 % (11.5-14.5); Red Blood Cell (RBC) Count 3.09 mill/uL (4.70-6.10); White Blood Cell (WBC) Count 5.3 thou/uL (4.8-10.8)
[2020-08-24 23:43] LABS: ALT (SGPT) 11 U/L (8-55); AST (SGOT) 39 U/L (5-34); Albumin 3.1 g/dL (3.4-4.8); Alkaline Phosphatase 100 U/L (40-110); Anion Gap 15 mmol/L (10-20); BUN (Urea Nitrogen) 20 mg/dL (8.4-25.7); Bilirubin, Total 0.4 mg/dL (0.2-1.2); Calc. Creatinine Clearance 0 mL/min (70-130); Calcium 8.2 mg/dL (7.8-10.44); Carbon Dioxide 21 mmol/L (23-31); Chloride 105 mmol/L (98-107); Globulin 4.2 g/dL (2.4-3.5); Glucose 88 mg/dL (83-110); Potassium 4.1 mmol/L (3.5-5.1); Protein, Total 7.3 g/dL (5.8-8.1); Sodium 137 mmol/L (136-145)
== END 2020-08-25 06:49 | disposition home or self-care (01) ==
LOC: ERS 21:17
DX: S00.82XA Blister (nonthermal) of other part of head, initial encounter (principal); S80.821A Blister (nonthermal), right lower leg, initial encounter; E78.5 Hyperlipidemia, unspecified; E11.9 Type 2 diabetes mellitus without complications; I50.9 Heart failure, unspecified; J44.9 Chronic obstructive pulmonary disease, unspecified; W18.30XA Fall on same level, unspecified, initial encounter
CPT/HCPCS: 36415; 70450; 80053; 81003; 81015; 85025; 90471; 90715

== ENCOUNTER 2020-08-27 13:51 | Emergency (ER) | payer MEDICARE, OTHER ==
[~2020-08-27 13:51] MED LIST: Iopamidol-370 76% 500 ML 1 ML ONE
[2020-08-27 16:18] LABS: Bilirubin Negative (Negative); Blood, Urine Negative (Negative); Clarity Clear (Clear); Glucose, Urine (Dipstick) Normal (Negative); Ketone, Urine Negative (Negative); Leukocyte Negative Leu/uL (Negative); Nitrite Negative (Negative); Protein, Urine (Dipstick) 20 mg/dL (Neg-Trace); Specific Gravity, Urine 1.014 (1.002-1.036); Urobilinogen Normal mg/dL (Less than 2); pH, Urine 5.5 (5.0-9.0)
[2020-08-27 17:51] LABS: #Eosinphils 0.2 thou/uL (0.0-0.7); #Lymphocytes 0.8 thou/uL (1.20-3.40); #Monocytes 0.5 thou/uL (0.11-0.59); #Neutrophils 3.2 thou/uL (1.40-6.50); %Basophils 0.4 % (0.0-1.0); %Eosinophils 3.2 % (0.0-10.0); %Lymphocytes 17.5 % (21.0-51.0); %Neutrophils 67.9 % (42.0-75.0); Hemoglobin 8.6 g/dL (14.0-18.0); Mean Corpuscular HGB CONC 31.9 g/dL (32.0-36.0); Mean Corpuscular Hemoglobin 27.2 pg (27.0-31.0); Mean Corpuscular Volume 85.3 fL (78.0-98.0); Platelet Count 200 thou/uL (130-400); RBC Distribution Width 16.4 % (11.5-14.5); Red Blood Cell (RBC) Count 3.17 mill/uL (4.70-6.10); White Blood Cell (WBC) Count 4.7 thou/uL (4.8-10.8)
[2020-08-27 18:11] LABS: ALT (SGPT) 10 U/L (8-55); AST (SGOT) 31 U/L (5-34); Albumin 3.1 g/dL (3.4-4.8); Alkaline Phosphatase 112 U/L (40-110); Anion Gap 13 mmol/L (10-20); BUN (Urea Nitrogen) 14 mg/dL (8.4-25.7); Bilirubin, Total 0.4 mg/dL (0.2-1.2); Calc. Creatinine Clearance 0 mL/min (70-130); Calcium 8.5 mg/dL (7.8-10.44); Carbon Dioxide 24 mmol/L (23-31); Chloride 104 mmol/L (98-107); Globulin 4.2 g/dL (2.4-3.5); Glucose 111 mg/dL (83-110); Potassium 4.2 mmol/L (3.5-5.1); Protein, Total 7.3 g/dL (5.8-8.1); Sodium 137 mmol/L (136-145)
--- NOTE | 2020-08-27 19:03 | CT ---
CT maxillofacial with contrast: 08/27/2020 HISTORY: 89-year-old male with periorbital cellulitis. Facial swelling. FINDINGS: Images of oropharynx degraded by motion, perhaps swallowing or localization, during scan of that part icular level. Superficial soft tissue edema throughout the subcutaneous fat of the right side of the face, from for head to inferior to the mandible and into the neck. Some of this crosses the midline to the left side, for example anterior to the larynx, and at the forehead. Mild right preseptal periorbital soft tissue thickening. No postseptal, intraorbital gas, abscess, edema, or mass. [place] lenses are bilaterally absent. Otherwise, the bilateral globes are normal in shape. No enlargement of extraocular muscles. Partial opacification of several bilateral anterior and right posterior ethmoid air cells. Sphenoid, maxillary, and frontal, sinuses, are grossly clear. Bilateral tympanomastoid cavities are grossly clear. No abscess. Nasal cavity is clear. Poor dentition, including missing teeth. Large defect representing caries involving left lower billboard erector ior most molar. No permeative or destructive osseous lesion elsewhere and facial bones otherwise. Large, bulky anterior bridging osteophytes protruding into the prevertebral space in cervical spine, from C3-4 through at least C5 (levels caudal to that were not included). The 3-4 large bridging osteophytes deeply indent and anteriorly displace the posterior pharyngeal wall. This could interfere with swallowing. IMPRESSION: 1.) Diffuse edema of mostly right side of face. 2) no evidence of abscess. 3) bulky osteophytes of DISH (diffuse idiopathic skeletal hyperostosis) could cause chronic dysphagia .
[2020-08-27] MEDS ORDERED: Furosemide 20 MG/2 ML VIAL ONE (19:37)
== END 2020-08-27 21:26 | disposition home or self-care (01) ==
LOC: ERS 13:51
DX: L03.213 Periorbital cellulitis (principal); E78.5 Hyperlipidemia, unspecified; E11.9 Type 2 diabetes mellitus without complications; F03.90 Unspecified dementia, unspecified severity, without behavioral disturbance, psychotic disturbance, mood disturbance, and anxiety; I11.0 Hypertensive heart disease with heart failure; I50.9 Heart failure, unspecified; J44.9 Chronic obstructive pulmonary disease, unspecified
CPT/HCPCS: 36415; 70487; 80053; 81003; 85025; 96374; J1940; Q9967

== ENCOUNTER 2020-08-30 13:14 | Inpatient (IN) | payer MEDICARE, MEDICAID ==
[2020-08-30] MEDS ORDERED: Naloxone HCl 2 mg/2 ml Syringe ONE (13:24)
[2020-08-30] MEDS ORDERED: Naloxone HCl 0.4 mg/ml Vial ONE ×3 (13:24→14:24)
[2020-08-30] MEDS ORDERED: Rocuronium Bromide 10 MG/ML (10ML VIAL) ONE (13:25)
[2020-08-30] MEDS ORDERED: Cefepime 2 GM VIAL ONE (13:43)
--- NOTE | 2020-08-30 14:03 | RAD ---
RADIOGRAPH CHEST 1 VIEW: DATE: 08/30/2020 HISTORY: 89-year-old male with altered mental status. Concern for aspiration. COMPARISON: 08/15/2020 FINDINGS: The thoracic aorta is tortuous and ectatic. There is no evidence of airspace density or pulmonary fely ma. The lateral costophrenic angles are not effaced. Inspiration is much shallower on the current study,, and the positioning is supine, both of which probably accounts for the more prominent pulmona ry vascular markings on the current study compared to the previous. Left subclavian dual lead pacemaker again noted. Supine positioning makes this study insensitive for the detection of pneumotho rax. IMPRESSION: 1) No acute pulmonary findings. 2) ectasia of thoracic aorta.
[2020-08-30 14:06] LABS: #Eosinphils 0.1 thou/uL (0.0-0.7); #Lymphocytes 0.7 thou/uL (1.20-3.40); #Monocytes 0.2 thou/uL (0.11-0.59); #Neutrophils 1.1 thou/uL (1.40-6.50); %Eosinophils 3.1 % (0.0-10.0); %Lymphocytes 36.3 % (21.0-51.0); %Monocytes 7.6 % (0.0-10.0); %Neutrophils 53.1 % (42.0-75.0); Hemoglobin 6.5 g/dL (14.0-18.0); Mean Corpuscular HGB CONC 32.1 g/dL (32.0-36.0); Mean Corpuscular Hemoglobin 27.7 pg (27.0-31.0); Mean Corpuscular Volume 86.2 fL (78.0-98.0); Mean Platelet Volume 7.6 fL (7.4-10.4); Platelet Count 115 thou/uL (130-400); RBC Distribution Width 16.1 % (11.5-14.5); Red Blood Cell (RBC) Count 2.33 mill/uL (4.70-6.10)
[2020-08-30] MEDS ORDERED: Norepinephrine 8 MG/0.9% NS 250 ML ONE (14:23)
[2020-08-30 14:24] LABS: Anisocytosis SLIGHT = 6-15 cells (100X) (0-5/hpf); Burr Cells SLIGHT = 2-5 cells (100X) (0-1/hpf); MDiff Complete? YES; Platelet Morphology Comment Appears Decreased; Polychromasia SLIGHT = 2-3 cells (100X) (0-2/hpf); Schistocytes SLIGHT = 2-5 cells (100X) (0-1/hpf)
[2020-08-30 14:26] LABS: Acetaminophen Less than 6.0 mcg/mL (10.0-30.0); Alcohol Less than 10 mg/dL (Less than 10); CK (CPK) 210 U/L (30-200); Salicylate Less than 8.0 mg/dL (15.0-30.0)
[2020-08-30 14:28] LABS: ALT (SGPT) 7 U/L (8-55); AST (SGOT) 24 U/L (5-34); Albumin 2.7 g/dL (3.4-4.8); Alkaline Phosphatase 98 U/L (40-110); Anion Gap 13 mmol/L (10-20); BUN (Urea Nitrogen) 20 mg/dL (8.4-25.7); Bilirubin, Total 0.3 mg/dL (0.2-1.2); Calc. Creatinine Clearance 0 mL/min (70-130); Calcium 7.8 mg/dL (7.8-10.44); Carbon Dioxide 24 mmol/L (23-31); Chloride 105 mmol/L (98-107); Globulin 3.5 g/dL (2.4-3.5); Glucose 106 mg/dL (83-110); Potassium 3.4 mmol/L (3.5-5.1); Protein, Total 6.2 g/dL (5.8-8.1); Sodium 139 mmol/L (136-145)
[2020-08-30] MEDS ORDERED: VANCOMYCIN 1.75 GM/350 ML BAG 1.75 GM in Premix Bag 1 BAG IVPB SCH (14:45)
[2020-08-30] MEDS ORDERED: Naloxone HCl 2 MG, Admixture Fee 1 EACH in Sodium Chloride 0.9% 500 ML IV PRN (14:45)
[2020-08-30 14:53] LABS: Analyzer IN Cardio ER; Base Excess (BEa) -3.9 mEq/L (-2.0 to +3.0); CO2 Tension 44.3 mmHg (35.0-45.0); Calcium, Ionized (arterial) 0.97 mmol/L (1.12-1.30); Carboxyhemoglobin (COHb) 0.4 gm% (0.0-3.0); Hemoglobin (Hb) 6.3 g/dL (14.0-18.0); O2 Tension (PaO2), arterial 272.4 mmHg (> 60.0); Potassium - ABG Lab 2.93 mmol/L (3.70-5.30); pH, Arterial 7.31 (7.35-7.45)
[2020-08-30 15:18] LABS: Bilirubin Negative (Negative); Blood, Urine Trace (Negative); Glucose, Urine (Dipstick) Negative (Negative); Ketone, Urine Negative (Negative); Leukocyte Negative (Negative); Nitrite Negative (Negative); Protein, Urine (Dipstick) Negative (Neg-Trace); Urobilinogen 0.2 mg/dL (Less than 2); pH, Urine 5.5 (5.0-9.0)
[2020-08-30 15:23] LABS: ALV-art Gradient 385.225 mmHg (0-20); Puncture Site LRA
[2020-08-30 15:27] LABS: Clarity Clear (Clear)
[2020-08-30 15:28] LABS: Bacteria/HPF None Seen HPF (None Seen); Squamous Epithelial 0-3 HPF (0-3); WBC/HPF 0-3 HPF (0-3)
[2020-08-30 15:30] LABS: Amphetamine Not Detected (NotDetected); Barbiturates Screen Not Detected (NotDetected); Benzodiazepine Screen Not Detected (NotDetected); Cocaine Metabolite Screen Not Detected (NotDetected); Medtox Control Line Valid? VALID (VALID); Medtox Reader # READER 4; Methadone Not Detected (NotDetected); Methamphetamine Not Detected (NotDetected); Opiate Screen Not Detected (NotDetected); Oxycodone Screen Not Detected (NotDetected); Phencyclidine (PCP) Not Detected (NotDetected); THC/Cannabinoid Screen Not Detected (NotDetected); Tricyclic Screen Not Detected (NotDetected)
[2020-08-30 15:46] LABS: INR-International Normal Ratio 1.1; Prothrombin Time 14.8 sec (12.0-14.7)
--- NOTE | 2020-08-30 16:52 | CT ---
CT head without IV contrast: Multiple axial tomograms obtained through the head without IV enhancement. INDICATIONS: Mental status change COMPARISON: CT head 08/24/2020 FINDINGS: Ventricles have normal size and position. No evidence of intracranial mass, hemorrhage, edema, or infarct. There is cortical atrophy and chronic ischemic white matter changes which appear stable. Mucosal edema in the ethmoid air cells. The nasal sinuses are otherwise aerated. Bony calvarium appears unremarkable. IMPRESSION: No acute finding
--- NOTE | 2020-08-30 16:57 | CT ---
CT cervical spine without contrast: Multiple axial tones obtained through cervical spine with multiplanar reconstruction. INDICATIONS: Found unresponsive COMPARISON: CT cervical spine 08/03/2020 FINDINGS: Cervical vertebra maintain normal height and alignment.. Disc spaces are preserved with degenerative disc changes throughout. There are large bridging osteoph ytes seen anteriorly and laterally from the cervical vertebra. No evidence of fracture. No interval change from the recent CT scan. IMPRESSION: Pronounced hypertrophic degenerative changes. No acute finding or change from recent exam.
[2020-08-30 19:31] LABS: SARS-CoV-2 NAA Rapid Test Not Detected (NotDetected)
[2020-08-30 19:36] LABS: Color Of CSF Supernatant COLORLESS (Colorless); Tube # 1; Unspun CSF Color COLORLESS (Colorless)
[2020-08-30 19:39] LABS: CSF RBC Count - Manual 1750 /cu.mm (None Seen); CSF Source CSF; CSF WBC/NonHematics Count-Man 2 /cu.mm (0-5); Clarity Hazy (Clear); Tube # 1
[2020-08-30] MEDS ORDERED: Ondansetron PF 4 MG/2 ML Vial IVP PRN (19:41)
[2020-08-30] MEDS ORDERED: Acetaminophen 325 MG TAB PO PRN (19:41)
[2020-08-30 19:50] LABS: CSF, Glucose 64 mg/dl (40-70); CSF, Protein 74 mg/dL (15-40)
[2020-08-30] MEDS: Sodium Chloride 0.9% 1,000 ML IV SCH (19:57)
[2020-08-30] MEDS ORDERED: Vancomycin HCl 500 MG in Sodium Chloride 0.9% 100 ML IVPB SCH (21:00)
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
[2020-08-30] MEDS: Norepinephrine 8 MG/0.9% NS 250 ML IVPB SCH (22:24)
[2020-08-31 00:05] LABS: Hemoglobin 8.5 g/dL (14.0-18.0)
[2020-08-31] MEDS ORDERED: VANCOMYCIN 1.25 GM/250 ML BAG IVPB SCH (02:00)
[2020-08-31] MEDS ORDERED: Dextrose 50% Abboject 50 ML SYRINGE ONE (04:21)
[2020-08-31 05:04] LABS: #Eosinphils 0.1 thou/uL (0.0-0.7); #Lymphocytes 0.5 thou/uL (1.20-3.40); #Monocytes 0.2 thou/uL (0.11-0.59); #Neutrophils 3.3 thou/uL (1.40-6.50); %Lymphocytes 11.8 % (21.0-51.0); %Neutrophils 81.2 % (42.0-75.0); Hemoglobin 7.9 g/dL (14.0-18.0); Mean Corpuscular HGB CONC 32.4 g/dL (32.0-36.0); Mean Corpuscular Hemoglobin 27.7 pg (27.0-31.0); Mean Corpuscular Volume 85.3 fL (78.0-98.0); Mean Platelet Volume 8.1 fL (7.4-10.4); Platelet Count 178 thou/uL (130-400); RBC Distribution Width 15.8 % (11.5-14.5); Red Blood Cell (RBC) Count 2.87 mill/uL (4.70-6.10)
[2020-08-31 05:27] LABS: Anion Gap 13 mmol/L (10-20); BUN (Urea Nitrogen) 17 mg/dL (8.4-25.7); Calc. Creatinine Clearance 48 mL/min (70-130); Calcium 7.1 mg/dL (7.8-10.44); Carbon Dioxide 21 mmol/L (23-31); Chloride 113 mmol/L (98-107); Glucose 63 mg/dL (83-110); Magnesium 1.5 mg/dL (1.6-2.6); Potassium 3.6 mmol/L (3.5-5.1); Sodium 143 mmol/L (136-145)
[2020-08-31] MEDS: Sodium Chloride 0.9% 1,000 ML IV SCH ×2 (05:58→16:50)
[2020-08-31] MEDS: Norepinephrine 8 MG/0.9% NS 250 ML IVPB SCH (06:26)
[2020-08-31] MEDS ORDERED: Magnesium 2 GM/50 ML 2 GM in Premix Bag 1 BAG IVPB SCH (07:30)
[2020-08-31] MEDS ORDERED: Albumin 25% 25 GM/100 ML BOT IVPB SCH (09:11)
[2020-08-31] MEDS ORDERED: Sodium Chloride 0.9% 1,000 ML IV SCH (09:15)
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
[2020-08-31] MEDS: Hydrocortisone Sod Succ/PF 250 mg/2 ml Vial SLOW IVP SCH ×2 (10:02→10:43)
[2020-08-31] MEDS: Dextrose 10% in Water 1,000 ML IV SCH ×3 (10:41→23:29)
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
[2020-08-31] MEDS: Cefepime 2 GM in Sodium Chloride 0.9% 100 ML IVPB SCH (13:51)
[2020-08-31] MEDS ORDERED: VANCOMYCIN 1.25 GM/250 ML BAG 1.25 GM in Premix Bag 1 BAG IVPB SCH ×2 (15:00→18:00)
--- NOTE | 2020-08-31 18:19 | PDOC.HOSPP ---
- Subjective Encounter Date: 08/31/20 Encounter Time: 17:55 Subjective: f/u for AMS/anemia/? sepsis/hypothermia tx with IV Cefepime/Vancomycin/Levophed/2u PRBC's. Nursing reports APS case being inv estigated. More alert this pm. - Objective Vital Signs & Weight: Vital Signs (12 hours) Temp Pulse Ox 08/31/20 12:00 97.6 F 08/31/20 08:00 100 08/31/20 07:00 98.8 F 08/31/20 06:42 100 Weight Admit Weight 145 lb Weight 145 lb Most Recent Monitor Data Heart Rate from ECG 60 NIBP 108/60 NIBP BP-Mean 76 Respiration from ECG 22 SpO2 100 I&O: 08/30/20 08/31/20 09/01/20 06:59 06:59 06:59 Intake Total 1519 1296 Output Total 690 170 Balance 829 1126 Result Diagrams: 08/31/20 04:10 08/31/20 04:10 Additional Labs: Accuchecks 08/31/20 08/31/20 08/31/20 10:35 07:29 05:27 POC Glucose 74 69 L 106 H 08/31/20 08/31/20 04:17 00:50 POC Glucose 56 L* 87 Laboratory Tests 08/03/20 08/03/20 08/03/20 14:35 14:35 18:33 WBC 3.4 L Hgb 8.3 L Magnesium Troponin I 0.047 H 0.070 H B-Natriuretic Peptide Prolactin SARS-CoV-2 RNA (JOSI) 08/03/20 08/03/20 08/03/20 18:33 18:33 18:33 WBC Hgb Magnesium 1.8 Troponin I B-Natriuretic Peptide 406.1 H Prolactin 26.14 H SARS-CoV-2 RNA (JOSI) 08/03/20 08/03/20 22:00 23:07 WBC Hgb Magnesium Troponin I 0.068 H B-Natriuretic Peptide Prolactin SARS-CoV-2 RNA (JOSI) Not Detected Radiology Reviewed by me: Yes (CT brain - no acute process) EKG Reviewed by me: Yes (Tele - V-paced in 60's) Hospitalist ROS - Medication Medications: Active Medications Generic Name Dose Route Start Last Admin Trade Name Freq PRN Reason Stop Dose Admin Cefepime HCl 2 gm/ Sodium 100 mls @ 200 mls/hr 08/31/20 13:00 08/31/20 13:51 Chloride IVPB 100 mls 1300 TARAN Administration Sodium Chloride 1,000 mls @ 100 mls/hr 08/30/20 20:00 08/31/20 16:50 Normal Saline 0.9% IV Not Given .Q10H TARAN Norepinephrine Bitartrate 250 mls @ 0 mls/hr 08/30/20 22:15 08/31/20 06:26 Levophed IVPB 250 mls INF TARAN Administration Protocol Titrate Dextrose/Water 1,000 mls @ 100 mls/hr 08/31/20 09:30 08/31/20 10:41 Dextrose 10% In Water IV 1,000 mls .Q10H TARAN Administration Vancomycin HCl 1.25 gm/ Device 250 mls @ 166.667 mls/hr 08/31/20 18:00 08/31/20 17:46 IVPB 250 mls 1800 TARAN Administration Hospitalist Exam Vitals: Vital Signs (12 hours) Temp Pulse Ox 08/31/20 12:00 97.6 F 08/31/20 08:00 100 08/31/20 07:00 98.8 F 08/31/20 06:42 100 Weight Admit Weight 145 lb Weight 145 lb Most Recent Monitor Data Heart Rate from ECG 60 NIBP 108/60 NIBP BP-Mean 76 Respiration from ECG 22 SpO2 100 General Appearance: awake alert, ill appearing General - other findings: repeating same phrase, frail Eye: PERRL, anicteric sclera ENT: normocephalic atraumatic, no oropharyngeal lesions Neck: supple, symmetric, no JVD, no thyromegaly, no lymphadenopathy Heart: RRR, no gallops, no rubs, normal peripheral pulses Heart - other findings: S1, S2 Respiratory: CTAB, no wheezes, no rales, no ronchi, normal chest expansion Gastrointestinal: soft, non-tender, non-distended, normal bowel sounds, no palpable masses Extremities: no cyanosis, no edema Skin: normal turgor Skin - other findings: multiple burned regions on scalp, U/LE's Neurological: no new deficit Psychiatric: oriented to person, flat affect, somnolent Hosp A/P (1) Septic shock Code(s): A41.9 - SEPSIS, UNSPECIFIED ORGANISM; R65.21 - SEVERE SEPSIS WITH SEPTIC SHOCK Status: Acute Plan: Initially suspected but all cultures negative, continue empiric IV abx another 24h then de-escalate, wean Levophed gtt (2) Acute on chronic anemia Code(s): D64.9 - ANEMIA, UNSPECIFIED Status: Acute Plan: s/p 2u PRBC's, serial H/H, no active bleeding identified, Pepcid IV BID (3) Failure to thrive in adult Status: Acute Plan: Multifactorial, supportive mgmt, Nutritional support, 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 (4) Skin lesions Code(s): L98.9 - DISORDER OF THE SKIN AND SUBCUTANEOUS TISSUE, UNSPECIFIED Status: Acute Plan: Appears to be areas of thermal injury, topical treatment with WCT, APS case open (5) Dementia Code(s): F03.90 - UNSPECIFIED DEMENTIA WITHOUT BEHAVIORAL DISTURBANCE Status: Chronic Qualifiers: Dementia type: unspecified type Dementia behavioral disturbance: with behavioral disturbance Qualified Code(s): F03.91 - Unspecified dementia with behavioral disturbance (6) KIRSTY (acute kidney injury) Code(s): N17.9 - ACUTE KIDNEY FAILURE, UNSPECIFIED Status: Acute Plan: Suspect due to volume depletion, serial creatinine, IVF's, avoid nephrotoxic meds (7) DM2 (diabetes mellitus, type 2) Status: Chronic Qualifiers: Diabetes mellitus intermediate card tender insulin use: with senior care use Diabetes mellitus complication status: without complication Qualified Code(s): E11.9 - Type 2 diabetes mellitus without complications; Z79.4 - watermaster (current) use of insulin Plan: ? hx given recurrent hypoglycemia, continue D5NS @ 50ml/h - Plan continue antibiotics, PT/OT, social work administrator, speech therapy, respiratory t herapy, DVT proph w/SCDs Consults: Palliative Care Continue supportive mgmt Wean off Levophed gtt Continue Pepcid IV BID Continue IVF's Continue IV abx and de-escalate in 24h PT evaluation for functional assessment CM for dispo, open APS case AM lab: BMP, CBC, Mg++
[2020-08-31] MEDS ORDERED: Norepinephrine 8 MG/0.9% NS 250 ML ONE (18:33)
[2020-08-31] MEDS ORDERED: Silver Sulfadiazine 50 GM JAR TP SCH (18:45)
[2020-08-31] MEDS ORDERED: Famotidine/PF 20 mg/2ml Vial SLOW IVP SCH (21:00)
[2020-09-01] MEDS: Sodium Chloride 0.9% 1,000 ML IV SCH (05:48)
[2020-09-01 06:09] LABS: Anion Gap 13 mmol/L (10-20); BUN (Urea Nitrogen) 18 mg/dL (8.4-25.7); Calc. Creatinine Clearance 30 mL/min (70-130); Calcium 7.4 mg/dL (7.8-10.44); Carbon Dioxide 19 mmol/L (23-31); Chloride 114 mmol/L (98-107); Glucose 138 mg/dL (83-110); Magnesium 1.9 mg/dL (1.6-2.6); Potassium 3.7 mmol/L (3.5-5.1); Sodium 142 mmol/L (136-145)
[2020-09-01 07:01] LABS: #Lymphocytes 0.5 thou/uL (1.20-3.40); #Monocytes 0.2 thou/uL (0.11-0.59); #Neutrophils 7.4 thou/uL (1.40-6.50); %Basophils 0.1 % (0.0-1.0); %Lymphocytes 6.7 % (21.0-51.0); %Monocytes 2.5 % (0.0-10.0); %Neutrophils 90.7 % (42.0-75.0); Band 25 % (5-11); Bite Cells SLIGHT = 2-5 cells (100X) (0-1/hpf); Hemoglobin 8.8 g/dL (14.0-18.0); Lymphocytes 11 % (21-51); MDiff Complete? YES; Mean Corpuscular Hemoglobin 28.9 pg (27.0-31.0); Mean Corpuscular Volume 87.4 fL (78.0-98.0); Mean Platelet Volume 8.8 fL (7.4-10.4); Monocytes 3 % (0-10); Neutrophil 61 % (42-75); Platelet Count 119 thou/uL (130-400); Platelet Morphology Comment Appears Decreased; Polychromasia SLIGHT = 2-3 cells (100X) (0-2/hpf); RBC Distribution Width 15.6 % (11.5-14.5); Red Blood Cell (RBC) Count 3.06 mill/uL (4.70-6.10); White Blood Cell (WBC) Count 8.1 thou/uL (4.8-10.8)
[2020-09-01] MEDS: Famotidine/PF 20 mg/2ml Vial SLOW IVP SCH (09:46)
[2020-09-01] MEDS: Silver Sulfadiazine 50 GM JAR TP SCH (09:46)
--- NOTE | 2020-09-01 12:18 | PDOC.HOSPP ---
- Subjective Encounter Date: 09/01/20 Encounter Time: 12:17 Subjective: Mr. Onofre was seen today in follow-up after being found down by family. He is awake but does not respond. His eyes are focusing upwards, and he continues to lift his right arm, and is swallowing periodically. - Objective Vital Signs & Weight: Vital Signs (12 hours) Pulse Ox 09/01/20 08:00 100 09/01/20 06:43 100 Weight Admit Weight 145 lb Weight 147 lb Most Recent Monitor Data Heart Rate from ECG 84 NIBP 116/80 NIBP BP-Mean 92 Respiration from ECG 19 SpO2 100 I&O: 08/31/20 09/01/20 09/02/20 06:59 06:59 06:59 Intake Total 1519 3194.7 Output Total 690 1050 550 Balance 829 2144.7 -550 Result Diagrams: 09/01/20 04:35 09/01/20 04:35 Additional Labs: Accuchecks 09/01/20 09/01/20 08/31/20 10:07 04:35 23:37 POC Glucose 128 H 125 H 162 H 08/31/20 08/31/20 08/31/20 20:11 16:26 10:35 POC Glucose 122 H 186 H 74 08/31/20 04:17 POC Glucose 56 L* Hospitalist ROS - Medication Medications: Active Medications Generic Name Dose Route Start Last Admin Trade Name Freq PRN Reason Stop Dose Admin Famotidine 20 mg 09/01/20 09:00 09/01/20 09:46 Famotidine/Pf 20 Mg/2ml Vial SLOW IVP 20 mg DAILY TARAN Administration Cefepime HCl 2 gm/ Sodium 100 mls @ 200 mls/hr 08/31/20 13:00 08/31/20 13:51 Chloride IVPB 100 mls 1300 TARAN Administration Norepinephrine Bitartrate 250 mls @ 0 mls/hr 08/30/20 22:15 08/31/20 06:26 Levophed IVPB 250 mls INF TARAN Administration Protocol Titrate Dextrose/Water 1,000 mls @ 100 mls/hr 08/31/20 09:30 08/31/20 23:29 Dextrose 10% In Water IV 1,000 mls .Q10H TARAN Administration Vancomycin HCl 1.25 gm/ Device 250 mls @ 166.667 mls/hr 08/31/20 18:00 08/31/20 17:46 IVPB 250 mls 1800 [facility] Administration Silver Sulfadiazine 0 gm 09/01/20 09:00 09/01/20 09:46 Silver Sulfadiazine 50 Gm Jar TP 1 each QAM [facility] Administration Hospitalist Exam Vitals: Vital Signs (12 hours) Pulse Ox 09/01/20 08:00 100 09/01/20 06:43 100 Weight Admit Weight 145 lb Weight 147 lb Most Recent Monitor Data Heart Rate from ECG 84 NIBP 116/80 NIBP BP-Mean 92 Respiration from ECG 19 SpO2 100 General Appearance: NAD, awake alert Eye: PERRL, anicteric sclera Heart: RRR, no murmur, no gallops, no rubs, normal peripheral pulses Respiratory: CTAB, no wheezes, no rales, no ronchi, normal chest expansion Gastrointestinal: soft, non-tender, non-distended, normal bowel sounds, no palpable masses, no hepatomegaly Extremities: no cyanosis, no edema (d.p. pulses are palpable, no lesions) Hosp A/P (1) Hypothermia Code(s): T68.XXXA - HYPOTHERMIA, INITIAL ENCOUNTER Status: Resolved (2) AMS (altered mental status) Code(s): R41.82 - ALTERED MENTAL STATUS, UNSPECIFIED Status: Acute (3) Skin lesions Code(s): L98.9 - DISORDER OF THE SKIN AND SUBCUTANEOUS TISSUE, UNSPECIFIED Status: Acute (4) Dementia Code(s): F03.90 - UNSPECIFIED DEMENTIA WITHOUT BEHAVIORAL DISTURBANCE Status: Chronic Qualifiers: Dementia type: unspecified type Dementia behavioral disturbance: with behavioral disturbance Qualified Code(s): F03.91 - Unspecified dementia with behavioral disturbance (5) KIRSTY (acute kidney injury) Code(s): N17.9 - ACUTE KIDNEY FAILURE, UNSPECIFIED Status: Acute - Plan * Hypothermia- likely from environmental exposure- he has been re-warmed * Possible seizure- he is demonstrating some unusual oral movements, and repeatedly lifting his left arm.- WIll consult Neurology- check EEG, and may need MRI * Sepsis- ruled out- his cultures are negative, and the hypotension was likely from volume depletion, and exposure * Dementia- stable * Skin lesions- ? etiology- they could be 2nd degree blevins ( Use of space heater? ) * KIRSTY- stable- continue Hydration * Hypoglycemia- better- will change fluids to D5 LR from D10 * Consider adding Lovenox or Heparin for DVT prophylaxis
--- NOTE | 2020-09-01 13:04 | PRG ---
DATE OF SERVICE: 09/01/2020 SUBJECTIVE: Radha Onofre remains poorly responsive, consistent with his diagnosis of advanced dementia. OBJECTIVE: VITAL SIGNS: Heart rate is in 80s, blood pressure 116/80. He is off pressors. Respiratory rate is in the teens. LUNGS: Clear. HEART: Regular rate and rhythm. ABDOMEN: Soft. LABORATORY DATA: White count 8.1, hemoglobin 8.8, and platelets 119. Sodium 142, potassium 3.7, chloride 114, bicarb 19, BUN 18, creatinine was 1.4. IMPRESSION: 1. Severe protein-calorie malnutrition. Adult Protective Services involved. 2. Status post presenting with hypothermia and hypotension after being found down in the yard. I am told there was an approximately 4-hour delay before EMS was called. His body temperature reportedly was 81 in the ER and 85 on arrival in the ICU. 3. Advanced dementia. 4. Acute on chronic kidney disease. 5. Hyperchloremic acidosis, it is mild. He is stable to move to the 4th floor. He transfers out of the critical care unit with no longer following. He should in my opinion never be allowed to go back to the house given the events. He should be transferred to group home unit when a bed becomes available and then permanently resides in a snf environment. His code status needs to be addressed. Job ID: [id number]
--- NOTE | 2020-09-01 13:33 | CON ---
NEUROLOGY CONSULTATION DATE OF CONSULTATION: 09/01/2020 REASON FOR CONSULTATION: Altered mental status/seizures. HISTORY OF PRESENT ILLNESS: Mr. Radha Onofre is an 89-year-old male with medical history significant for congestive heart failure, AV block, type 2 diabetes mellitus, cortical obstructive pulmonary disease, chronic kidney disease stage 2, abdominal aortic aneurysm, dementia, and iron deficiency anemia, who presented to the emergency room with altered mental status. The patient is unable to provide the history, so history is obtained by review of the medical records. Per records, the patient was found naked and confused on 08/30/2020 at home around 9:30 a.m. EMS were called. In the emergency room, he was found to be hypothermic and hypotensive. Lab showed pancytopenia with hemoglobin of 6.5. He was started on Narcan drip. Head CT did not show any acute intracranial pathology. Chest x-ray did not reveal any acute cardiopulmonary findings. Urinalysis was negative for UTI. He was admitted to the CCU for management of acute septic shock. This morning, the patient was seen by Dr. Avery, the primary attending, and he has some abnormal involuntary movements, which raises concern about seizures, so Neurology consult was called for further evaluation. REVIEW OF SYSTEMS: Unobtainable due to the patient's mental status. ALLERGIES: NO KNOWN DRUG ALLERGIES. PAST MEDICAL HISTORY: Congestive heart failure, type 2 diabetes mellitus, chronic kidney disease stage 2, chronic obstructive pulmonary disease, AV block, abdominal aortic aneurysm, chronic renal insufficiency, anemia, and dementia, but he is alert and oriented x2 at baseline. PAST SURGICAL HISTORY: No significant past surgical history. FAMILY HISTORY: No documented history of illegal drug abuse. SOCIAL HISTORY: No documented history of alcohol or illegal drug abuse. Allergies/Adverse Reactions: Allergy/AdvReac Type Severity Reaction Status Date / Time No Known Drug Allergies Allergy Verified 08/15/20 23:40 Home Medications: Medication Instructions Recorded Confirmed Type metFORMIN [Glucophage] 500 mg PO BID-WM #60 tab 06/16/20 08/16/20 Rx Aspirin Chewable [Aspirin Chewable 81 mg PO DAILY tab 08/06/20 08/16/20 Rx Tablet] Atorvastatin Calcium [Lipitor] 40 mg PO DAILY 08/06/20 08/16/20 History Cephalexin [Keflex] 500 mg PO Q12H #10 cap 08/17/20 Rx Cyanocobalamin (Vitamin B-12) 1,000 mcg PO DAILY #30 tab 08/17/20 Rx [Vitamin B-12] Folic Acid [Folvite] 1 mg PO DAILY #30 tab 08/17/20 Rx Megestrol Acetate [Megace] 40 mg PO DAILY #30 tab 08/17/20 Rx Mirtazapine [Remeron] 7.5 mg PO HS #30 tab 08/17/20 Rx Vital Signs & Weight: Vital Signs (12 hours) Pulse Ox 09/01/20 08:00 100 09/01/20 06:43 100 Weight Admit Weight 145 lb Weight 147 lb Most Recent Monitor Data Heart Rate from ECG 84 NIBP 116/80 NIBP BP-Mean 92 Respiration from ECG 19 SpO2 100 I&O: 08/31/20 09/01/20 09/02/20 06:59 06:59 06:59 Intake Total 1519 3194.7 Output Total 690 1050 550 Balance 829 2144.7 -550 Additional Labs: Accuchecks 09/01/20 09/01/20 08/31/20 10:07 04:35 23:37 POC Glucose 128 H 125 H 162 H 08/31/20 08/31/20 08/31/20 20:11 16:26 10:35 POC Glucose 122 H 186 H 74 08/31/20 04:17 POC Glucose 56 L* Active Medications Generic Name Dose Route Start Last Admin Trade Name Freq PRN Reason Stop Dose Admin Famotidine 20 mg 09/01/20 09:00 09/01/20 09:46 Famotidine/Pf 20 Mg/2ml Vial SLOW IVP 20 mg DAILY TARAN Administration Cefepime HCl 2 gm/ Sodium 100 mls @ 200 mls/hr 08/31/20 13:00 08/31/20 13:51 Chloride IVPB 100 mls 1300 TARAN Administration Norepinephrine Bitartrate 250 mls @ 0 mls/hr 08/30/20 22:15 08/31/20 06:26 Levophed IVPB 250 mls INF TARAN Administration Protocol Titrate Dextrose/Water 1,000 mls @ 100 mls/hr 08/31/20 09:30 08/31/20 23:29 Dextrose 10% In Water IV 1,000 mls .Q10H TARAN Administration Vancomycin HCl 1.25 gm/ Device 250 mls @ 166.667 mls/hr 08/31/20 18:00 08/31/20 17:46 IVPB 250 mls 1800 TARAN Administration Silver Sulfadiazine 0 gm 09/01/20 09:00 09/01/20 09:46 Silver Sulfadiazine 50 Gm Jar TP 1 each QAM TARAN Administration Vitals: Vital Signs (12 hours) Pulse Ox 09/01/20 08:00 100 09/01/20 06:43 100 Weight Admit Weight 145 lb Weight 147 lb Most Recent Monitor Data Heart Rate from ECG 84 NIBP 116/80 NIBP BP-Mean 92 Respiration from ECG 19 SpO2 100 PHYSICAL EXAMINATION: General Appearance: NAD Eye: PERRL Eye - other findings: Pupils pinpoint bilaterally ENT: moist mucosa Neck - other findings: stiff Heart: RRR, no murmur Respiratory: CTAB Gastrointestinal: soft, non-tender, non-distended Extremities: no edema Neurological - Mental status, the patient is alert and oriented to person only. He does not follow commands. He does not maintain eye contact. Cranial nerves, pupils are 3 mm round and reactive to light. Face symmetric. Tongue midline. Moves neck in both directions. Motor, muscle tone is increased, bulk is normal, moving all 4 extremities equally. Sensory, withdraws to nailbed pressure bilaterally. GAIT: Deferred due to patient's safety reasons. DATA REVIEWED: I reviewed the labs which were significant for anemia and hypokalemia and increased BUN. Lab results: Laboratory Last Values WBC 2.0 thou/uL (4.8-10.8) L 08/30/20 13:42 RBC 2.33 mill/uL (4.70-6.10) L 08/30/20 13:42 Hgb 6.5 g/dL (14.0-18.0) L 08/30/20 13:42 Hct 20.1 % (42.0-52.0) L 08/30/20 13:42 MCV 86.2 fL (78.0-98.0) 08/30/20 13:42 MCH 27.7 pg (27.0-31.0) 08/30/20 13:42 MCHC 32.1 g/dL (32.0-36.0) 08/30/20 13:42 RDW 16.1 % (11.5-14.5) H 08/30/20 13:42 Plt Count 115 thou/uL (130-400) L 08/30/20 13:42 MPV 7.6 fL (7.4-10.4) 08/30/20 13:42 Neutrophils % 53.1 % (42.0-75.0) 08/30/20 13:42 Neutrophils % (Manual) Not Reportable 08/30/20 13:42 Lymphocytes % 36.3 % (21.0-51.0) 08/30/20 13:42 Monocytes % 7.6 % (0.0-10.0) 08/30/20 13:42 Eosinophils % 3.1 % (0.0-10.0) 08/30/20 13:42 Basophils % 0.0 % (0.0-1.0) 08/30/20 13:42 Neutrophils # 1.1 thou/uL (1.40-6.50) L 08/30/20 13:42 Lymphocytes # 0.7 thou/uL (1.20-3.40) L 08/30/20 13:42 Monocytes # 0.2 thou/uL (0.11-0.59) 08/30/20 13:42 Eosinophils # 0.1 thou/uL (0.0-0.7) 08/30/20 13:42 Basophils # 0.0 thou/uL (0.0-0.2) 08/30/20 13:42 Plt Morphology Comment Appears Decreased L 08/30/20 13:42 Polychromasia SLIGHT = 2-3 cells (100X) (0-2/hpf) 08/30/20 13:42 Anisocytosis SLIGHT = 6-15 cells (100X) (0-5/hpf) 08/30/20 13:42 [place] Cells SLIGHT = 2-5 cells (100X) (0-1/hpf) 08/30/20 13:42 Schistocytes SLIGHT = 2-5 cells (100X) (0-1/hpf) 08/30/20 13:42 PT 14.8 sec (12.0-14.7) H 08/30/20 15:18 INR 1.1 08/30/20 15:18 Specimen Type ARTERIAL 08/30/20 04:47 Puncture Site LRA 08/30/20 04:47 Bicarbonate Actual 22.0 mEq/L (22-28) 08/30/20 04:47 ABG pH 7.31 (7.35-7.45) L 08/30/20 04:47 ABG pCO2 44.3 mmHg (35.0-45.0) 08/30/20 04:47 ABG pO2 272.4 mmHg (> 60.0) H 08/30/20 04:47 ABG O2 Sat (Measured) 99.5 % (94.0-98.0) H 08/30/20 04:47 ABG O2 Content 9.4 vol% (18.0-21.0) L 08/30/20 04:47 ABG Base Excess -3.9 mEq/L (-2.0 to +3.0) L 08/30/20 04:47 ABG Hematocrit 19.0 % (42.0-52.0) L 08/30/20 04:47 ABG Hemoglobin 6.3 g/dL (14.0-18.0) L 08/30/20 04:47 ABG Oxyhemoglobin 98.1 % (94.0-98.0) H 08/30/20 04:47 ABG Carboxyhemoglobin 0.4 gm% (0.0-3.0) 08/30/20 04:47 ABG Methemoglobin 1.00 gm% (0.04-1.52) 08/30/20 04:47 ABG Deoxyhemoglobin 0.5 % (0.0-2.9) 08/30/20 04:47 [place]andon Test POSITIVE 08/30/20 04:47 A-a O2 Gradient 385.225 mmHg (0-20) H 08/30/20 04:47 Sodium 137 mmol/L (135-148) 08/30/20 04:47 Potassium 2.93 mmol/L (3.70-5.30) L 08/30/20 04:47 Chloride 113 mmol/L (98-106) H 08/30/20 04:47 Ionized Calcium 0.97 mmol/L (1.12-1.30) L 08/30/20 04:47 Mode of Support NRB 08/30/20 04:47 Inspired O2 100 % 08/30/20 04:47 Sodium 139 mmol/L (136-145) 08/30/20 13:42 Potassium 3.4 mmol/L (3.5-5.1) L 08/30/20 13:42 Chloride 105 mmol/L (98-107) 08/30/20 13:42 Carbon Dioxide 24 mmol/L (23-31) 08/30/20 13:42 Anion Gap 13 mmol/L (10-20) 08/30/20 13:42 BUN 20 mg/dL (8.4-25.7) 08/30/20 13:42 Creatinine 1.41 mg/dL (0.7-1.3) H 08/30/20 13:42 Estimated GFR (MDRD) 57 08/30/20 13:42 Glucose 106 mg/dL (83-110) 08/30/20 13:42 Lactic Acid 1.3 mmol/L (0.5-2.2) 08/30/20 13:42 Calcium 7.8 mg/dL (7.8-10.44) 08/30/20 13:42 Total Bilirubin 0.3 mg/dL (0.2-1.2) 08/30/20 13:42 AST 24 U/L (5-34) 08/30/20 13:42 ALT 7 U/L (8-55) L 08/30/20 13:42 Alkaline Phosphatase 98 U/L (40-110) 08/30/20 13:42 Creatine Kinase 210 U/L (30-200) H 08/30/20 13:42 Troponin I 0.015 ng/mL (< 0.028) 08/30/20 13:42 Serum Total Protein 6.2 g/dL (5.8-8.1) 08/30/20 13:42 Albumin 2.7 g/dL (3.4-4.8) L 08/30/20 13:42 Globulin 3.5 g/dL (2.4-3.5) 08/30/20 13:42 Albumin/Globulin Ratio 0.8 g/dL (1.2-2.2) L 08/30/20 13:42 TSH 3rd Generation 2.0869 uIU/mL (0.35-4.94) 08/30/20 13:42 Urine Color Yellow (Yellow) 08/30/20 14:14 Urine Clarity Clear (Clear) 08/30/20 14:14 Urine pH 5.5 (5.0-9.0) 08/30/20 14:14 Ur Specific [place] 1.020 (1.005-1.030) 08/30/20 14:14 Urine Protein Negative mg/dL (Neg-Trace) 08/30/20 14:14 Urine Glucose (UA) Negative mg/dL (Negative) 08/30/20 14:14 Urine Ketones Negative mg/dL (Negative) 08/30/20 14:14 Urine Blood Trace (Negative) 08/30/20 14:14 Urine Nitrite Negative (Negative) 08/30/20 14:14 Urine Bilirubin Negative (Negative) 08/30/20 14:14 Urine Urobilinogen 0.2 mg/dL (Less than 2) 08/30/20 14:14 Ur Leukocyte Esterase Negative (Negative) 08/30/20 14:14 Urine RBC 4-6 HPF (0-3) A 08/30/20 14:14 Urine WBC 0-3 HPF (0-3) 08/30/20 14:14 Ur Squamous Epith Cells 0-3 HPF (0-3) 08/30/20 14:14 Urine Bacteria None Seen HPF (None Seen) 08/30/20 14:14 Fluid Source CSF 08/30/20 18:35 Fluid Tube Number 1 08/30/20 18:35 Fluid Color Colorless (Colorless) 08/30/20 18:35 Fluid Clarity Hazy (Clear) H 08/30/20 18:35 Fluid WBC (Manual) 2 /cu.mm (0-5) 08/30/20 18:35 Fluid RBC (Manual) 1750 /cu.mm (None Seen) H 08/30/20 18:35 CSF Tube Number 1 08/30/20 18:35 CSF Color COLORLESS (Colorless) 08/30/20 18:35 CSF Supernatant Color COLORLESS (Colorless) 08/30/20 18:35 CSF Glucose 64 mg/dl (40-70) 08/30/20 18:35 CSF Total Protein 74 mg/dL (15-40) H 08/30/20 18:35 Salicylates Less than 8.0 mg/dL (15.0-30.0) L 08/30/20 13:42 Urine Opiates Screen Not Detected (NotDetected) 08/30/20 14:14 Ur Oxycodone Screen Not Detected (NotDetected) 08/30/20 14:14 Urine Methadone Screen Not Detected (NotDetected) 08/30/20 14:14 Ur Propoxyphene Screen Not Detected (NotDetected) 08/30/20 14:14 Acetaminophen Less than 6.0 mcg/mL (10.0-30.0) L 08/30/20 13:42 Ur Barbiturates Screen Not Detected (NotDetected) 08/30/20 14:14 Ur Tricyclics Screen Not Detected (NotDetected) 08/30/20 14:14 Ur Phencyclidine Scrn Not Detected (NotDetected) 08/30/20 14:14 Ur Amphetamines Screen Not Detected (NotDetected) 08/30/20 14:14 U Methamphetamines Scrn Not Detected (NotDetected) 08/30/20 14:14 U Benzodiazepines Scrn Not Detected (NotDetected) 08/30/20 14:14 U Cocaine Metab Screen Not Detected (NotDetected) 08/30/20 14:14 U Cannabinoids Screen Not Detected (NotDetected) 08/30/20 14:14 Drug Screen Comment () 08/30/20 14:14 Plasma Alcohol Less than 10 mg/dL (Less than 10) 08/30/20 13:42 SARS-CoV-2 Rap RNA(RT-PCR) Not Detected (NotDetected) 08/30/20 16:03 Blood Type A POSITIVE 08/30/20 15:18 Antibody Screen NEGATIVE 08/30/20 15:18 Crossmatch See Detail 08/30/20 15:18 Chest x-ray Status: image reviewed by me ASSESSMENT AND PLAN: (1) Seizure Status: Acute (2) AMS (altered mental status) Code(s): R41.82 - ALTERED MENTAL STATUS, UNSPECIFIED Status: Acute (3) Skin lesions Code(s): L98.9 - DISORDER OF THE SKIN AND SUBCUTANEOUS TISSUE, UNSPECIFIED Status: Acute (4) Dementia Code(s): F03.90 - UNSPECIFIED DEMENTIA WITHOUT BEHAVIORAL DISTURBANCE Status: Chronic Qualifiers: Dementia type: unspecified type Dementia behavioral disturbance: with behavioral disturbance Qualified Code(s): F03.91 - Unspecified dementia with behavioral disturbance (5) KIRSTY (acute kidney injury) Code(s): N17.9 - ACUTE KIDNEY FAILURE, UNSPECIFIED Status: Acute Mr. Radha Onofre is an 89-year-old male, who was admitted because of altered mental status and hypotension for the treatment of acute kidney injury and septic shock. This morning, he has abnormal involuntary movements noted by the primary attending, Dr. Avery, so Neurology was consulted to rule out seizures. We will evaluate him with video EEG monitoring. If EEG is positive, then we will start anticonvulsants. Neuro checks every 4 hours. Observe seizure precautions. Ativan 2 mg IV for seizure greater than 2 minutes. Continue home medications. Continue medical management per primary team and Pulmonology. We will continue to follow. Further recommendations depend on the results of the testing. Plan discussed with the primary attending, Dr. Avery. Thank you for the consult. Job ID: [id number] [facility]
[2020-09-01] MEDS: Cefepime 2 GM in Sodium Chloride 0.9% 100 ML IVPB SCH (14:04)
[2020-09-01] MEDS: Dextrose 5%-Lactated Ringers 1,000 ML IV SCH (14:04)
[2020-09-01] MEDS: Dextrose 10% in Water 1,000 ML IV SCH (14:59)
--- NOTE | 2020-09-01 15:33 | PDOC.EEG ---
Neurology EEG Report - Report Report: This EEG was performed using 24 channel [employer] video EEG machine with 24 disc rodo ctrodes. This was an extended 2 hours 4 minutes of inpatient video EEG recording. Digital analysis of the EEG was done for spike and seizure detection which revealed no abnormalities. Background: The posterior background rhythm is not observed. Hyperventilation: Not performed. Photic Stimulation: No significant response. Sleep: No stage change is observed. EEG Diagnosis: Generalized irregular theta delta activity seen during the recording. Absence of posterior background rhythm. Clinical Interpretation: This EEG is consistent with moderate generalized nonspecific cerebral dysfunction. No electrographic seizures captured during the recording.
--- NOTE | 2020-09-01 15:48 | PDOC.PALPN ---
Palliative Progress Note - Subjective Not able to participate in exam, nonsensical speech. Total assist for ADL - Objective Vital Signs: Vital Signs - Most Recent Temp Pulse Resp BP Pulse Ox 97.6 F 65 12 102/71 100 08/31/20 12:00 08/30/20 19:15 08/30/20 19:15 08/30/20 19:15 09/01/20 08:00 - Physical Exam Constitutional: cachectic, confusion, encephalitic, ill appearing HEENT: sclera anicteric Respiratory: no rhonchi, no wheezing, unlabored breathing Cardiovascular: RRR Gastrointestinal: soft, non-tender, positive bowel sounds, incontinent Genitourinary: teixeira catheter Musculoskeletal: diffuse muscle atrophy Deviation from normal: upper ext tremor more pronounced to left hand Skin: cap refill <2 seconds Deviation from normal: as per wound photo notes Deviation from normal: encephalopathic - Assessment (1) AMS (altered mental status) Code(s): R41.82 - ALTERED MENTAL STATUS, UNSPECIFIED Current Visit: Yes Status: Acute (2) Encounter for palliative care Code(s): Z51.5 - ENCOUNTER FOR PALLIATIVE CARE Current Visit: Yes Status: Acute (3) Failure to thrive in adult Current Visit: Yes Status: Acute (4) Skin lesions Code(s): L98.9 - DISORDER OF THE SKIN AND SUBCUTANEOUS TISSUE, UNSPECIFIED Current Visit: Yes Status: Acute (5) Dementia Code(s): F03.90 - UNSPECIFIED DEMENTIA WITHOUT BEHAVIORAL DISTURBANCE Current Visit: Yes Status: Chronic Qualifiers: Dementia type: unspecified type Dementia behavioral disturbance: with behavioral disturbance Qualified Code(s): F03.91 - Unspecified dementia with behavioral disturbance - Plan Plan: Consideration may be given to source of blevins noted to possible space heaters. Palliative care will differ to addressing goal of care at this time with family as APS has been consulted secondary to patient status and history provided on arrival to emergency room Case Management in contact with APS, please refer to notes for information Once APS determines safety or designation of decision maker Palliative Care will assist in Goal of Care. [35] minutes spent on this encounter with >50% of the time in counseling and coordination of care. - ROS Non Response: due to mental status
[2020-09-01 17:38] LABS: Vancomycin, Trough 24.5 ug/mL
[2020-09-02] MEDS: Dextrose 10% in Water 1,000 ML IV SCH ×2 (02:02→16:08)
[2020-09-02] MEDS: Dextrose 5%-Lactated Ringers 1,000 ML IV SCH ×2 (04:44→18:23)
[2020-09-02 05:16] LABS: Anion Gap 12 mmol/L (10-20); BUN (Urea Nitrogen) 17 mg/dL (8.4-25.7); Calc. Creatinine Clearance 34 mL/min (70-130); Carbon Dioxide 17 mmol/L (23-31); Chloride 118 mmol/L (98-107); Glucose 101 mg/dL (83-110); Potassium 3.2 mmol/L (3.5-5.1); Sodium 144 mmol/L (136-145)
[2020-09-02 05:17] LABS: #Lymphocytes 1.1 thou/uL (1.20-3.40); #Monocytes 0.5 thou/uL (0.11-0.59); #Neutrophils 5.1 thou/uL (1.40-6.50); %Basophils 0.2 % (0.0-1.0); %Eosinophils 0.7 % (0.0-10.0); %Lymphocytes 15.8 % (21.0-51.0); %Monocytes 7.1 % (0.0-10.0); %Neutrophils 76.3 % (42.0-75.0); Hemoglobin 8.6 g/dL (14.0-18.0); Mean Corpuscular HGB CONC 32.5 g/dL (32.0-36.0); Mean Corpuscular Hemoglobin 28.3 pg (27.0-31.0); Mean Corpuscular Volume 86.9 fL (78.0-98.0); Platelet Count 90 thou/uL (130-400); RBC Distribution Width 16.3 % (11.5-14.5); Red Blood Cell (RBC) Count 3.03 mill/uL (4.70-6.10); White Blood Cell (WBC) Count 6.7 thou/uL (4.8-10.8)
[2020-09-02] MEDS: Famotidine/PF 20 mg/2ml Vial SLOW IVP SCH (08:25)
--- NOTE | 2020-09-02 09:08 | PDOC.HOSPP ---
- Subjective Encounter Date: 09/02/20 Encounter Time: 09:08 Subjective: Patient lying in bed, resting with eye closed. Patient easily arousable but appears confused and does not respond. His eyes are focusing upwards, he swallows periodically. He does not appear to be lifting his right arm as men tioned in yesterday's note. Patient has history of dementia and altered mental status on admission. - Objective Vital Signs & Weight: Vital Signs (12 hours) Temp Pulse Resp BP Pulse Ox 09/02/20 07:23 98.8 F 89 20 165/95 H 98 09/02/20 04:00 98.9 F 91 18 121/72 100 09/02/20 02:25 98.8 F 09/02/20 01:45 96.8 F L 09/02/20 01:20 96.4 F L 09/02/20 00:10 95.0 F L 09/01/20 23:52 76 16 139/85 100 Weight Admit Weight 145 lb Weight 147 lb Most Recent Monitor Data Heart Rate from ECG 78 NIBP 129/82 NIBP BP-Mean 97 Respiration from ECG 13 SpO2 100 I&O: 09/01/20 09/02/20 09/03/20 06:59 06:59 06:59 Intake Total 3194.7 2163 Output Total 1050 1715 Balance 2144.7 448 Result Diagrams: 09/02/20 04:35 09/02/20 04:35 Additional Labs: Accuchecks 09/02/20 09/01/20 09/01/20 03:31 23:57 20:14 POC Glucose 112 H 97 86 09/01/20 09/01/20 09/01/20 16:04 12:29 10:07 POC Glucose 91 138 H 128 H Hospitalist ROS - Review of Systems ROS unobtainable: due to mental status Genitourinary: reports: incontinence Neurological: reports: confusion All other systems reviewed; all pertinent +/- noted in HPI/Subj - Medication Medications: Active Medications Generic Name Dose Route Start Last Admin Trade Name Freq PRN Reason Stop Dose Admin Acetaminophen 650 mg 08/30/20 19:41 09/02/20 08:29 Acetaminophen 325 Mg Tab PO 650 mg Q4H PRN Administration Headache/Fever/Mild Pain (1-3) Famotidine 20 mg 09/01/20 09:00 09/02/20 08:25 Famotidine/Pf 20 Mg/2ml Vial SLOW IVP 20 mg DAILY TARAN Administration Cefepime HCl 2 gm/ Sodium 100 mls @ 200 mls/hr 08/31/20 13:00 09/01/20 14:04 Chloride IVPB 100 mls 1300 TARAN Administration Norepinephrine Bitartrate 250 mls @ 0 mls/hr 08/30/20 22:15 08/31/20 06:26 Levophed IVPB 250 mls INF TARAN Administration Protocol Titrate Dextrose/Water 1,000 mls @ 100 mls/hr 08/31/20 09:30 09/02/20 02:02 Dextrose 10% In Water IV Not Given .Q10H TARAN Dextrose/Lactated Ringer's 1,000 mls @ 75 mls/hr 09/01/20 12:30 09/02/20 04:44 D5 Lr IV 1,000 mls .[id number] TARAN Administration Silver Sulfadiazine 0 gm 09/01/20 09:00 09/01/20 09:46 Silver Sulfadiazine 50 Gm Jar TP 1 each QAM TARAN Administration Hospitalist Exam Vitals: Vital Signs (12 hours) Temp Pulse Resp BP Pulse Ox 09/02/20 07:23 98.8 F 89 20 165/95 H 98 09/02/20 04:00 98.9 F 91 18 121/72 100 09/02/20 02:25 98.8 F 09/02/20 01:45 96.8 F L 09/02/20 01:20 96.4 F L 09/02/20 00:10 95.0 F L 09/01/20 23:52 76 16 139/85 100 Weight Admit Weight 145 lb Weight 147 lb Most Recent Monitor Data Heart Rate from ECG 78 NIBP 129/82 NIBP BP-Mean 97 Respiration from ECG 13 SpO2 100 General Appearance: NAD (appears confused with history of dementia) Eye: PERRL ENT: normocephalic atraumatic, moist mucosa Neck: supple, symmetric Heart: RRR, normal peripheral pulses Respiratory: CTAB, no wheezes, normal chest expansion Gastrointestinal: soft, non-tender, non-distended, normal bowel sounds Extremities: no edema Skin: normal turgor, no lesions, no rashes Neurological: cranial nerve grossly intact Psychiatric: not oriented (History of dementia, AMS) Hosp A/P (1) Hypothermia Code(s): T68.XXXA - HYPOTHERMIA, INITIAL ENCOUNTER Status: Resolved (2) AMS (altered mental status) Code(s): R41.82 - ALTERED MENTAL STATUS, UNSPECIFIED Status: Acute (3) Skin lesions Code(s): L98.9 - DISORDER OF THE SKIN AND SUBCUTANEOUS TISSUE, UNSPECIFIED Status: Acute (4) Dementia Code(s): F03.90 - UNSPECIFIED DEMENTIA WITHOUT BEHAVIORAL DISTURBANCE Status: Chronic Qualifiers: Dementia type: unspecified type Dementia behavioral disturbance: with behavioral disturbance Qualified Code(s): F03.91 - Unspecified dementia with behavioral disturbance (5) KIRSTY (acute kidney injury) Code(s): N17.9 - ACUTE KIDNEY FAILURE, UNSPECIFIED Status: Acute - Plan old records reviewed/req, continue antibiotics, DVT proph w/lovenox * Hypothermia -likely from environmental exposure- he has been re-warmed -Temperature 98.9 this morning. * Possible seizure - he is demonstrating some unusual oral movements, was repeatedly lifting his left arm yesterday, no visualization of that today. -Neurology consult by Dr. Art. -EEG was negative for seizures, showed moderate generalized nonspecific cerebral dysfunction. * Sepsis - ruled out - his cultures are negative, and the hypotension was likely from volume depletion, and exposure * Dementia - stable and chronic - speech eval failed on 09/02/20 * Skin lesions - ? etiology- they could be 2nd degree blevins ( Use of space heater? ) * KIRSTY- stable - continue Hydration * Hypoglycemia- better -fluids changed from D10 at 100ml/hr to D5NS at 75ml/hr -Mixing Roll Operator consult ordered -Accuchecks Q4 hrs. -decreased intake, failed speech eval -NG tube ordered with restraints * Lovenox added for DVT prophylaxis * Case discussed with Dr. Garcia.
[2020-09-02] MEDS ORDERED: Enoxaparin Sodium 40 MG/0.4 ML SYRINGE SC SCH (10:30)
[2020-09-02] MEDS: Silver Sulfadiazine 50 GM JAR TP SCH (12:04)
[2020-09-02] MEDS ORDERED: Dextrose 5% in Water 1,000 ML IV PRN (14:09)
[2020-09-02 15:51] LABS: Vancomycin, Random 18.8 ug/mL (See Comment)
[2020-09-02] MEDS ORDERED: Vancomycin 1 GM in Premix Bag 1 BAG IVPB SCH (16:00)
[2020-09-02] MEDS: Cefepime 2 GM in Sodium Chloride 0.9% 100 ML IVPB SCH (16:07)
[2020-09-03 04:38] LABS: Anion Gap 16 mmol/L (10-20); BUN (Urea Nitrogen) 14 mg/dL (8.4-25.7); Calc. Creatinine Clearance 38 mL/min (70-130); Calcium 8.5 mg/dL (7.8-10.44); Carbon Dioxide 17 mmol/L (23-31); Chloride 118 mmol/L (98-107); Glucose 86 mg/dL (83-110); Potassium 3.5 mmol/L (3.5-5.1); Sodium 147 mmol/L (136-145)
[2020-09-03] MEDS: Dextrose 50% Abboject 50 ML SYRINGE SLOW IVP PRN (05:17)
[2020-09-03 08:24] LABS: #Eosinphils 0.2 thou/uL (0.0-0.7); #Lymphocytes 0.9 thou/uL (1.20-3.40); #Monocytes 0.4 thou/uL (0.11-0.59); #Neutrophils 3.2 thou/uL (1.40-6.50); %Basophils 0.2 % (0.0-1.0); %Eosinophils 3.8 % (0.0-10.0); %Lymphocytes 19.6 % (21.0-51.0); %Monocytes 7.4 % (0.0-10.0); Hemoglobin 9.7 g/dL (14.0-18.0); Mean Corpuscular HGB CONC 32.1 g/dL (32.0-36.0); Mean Corpuscular Volume 87.4 fL (78.0-98.0); Mean Platelet Volume 9.2 fL (7.4-10.4); Platelet Count 104 thou/uL (130-400); RBC Distribution Width 16.4 % (11.5-14.5); Red Blood Cell (RBC) Count 3.45 mill/uL (4.70-6.10); White Blood Cell (WBC) Count 4.7 thou/uL (4.8-10.8)
[2020-09-03] MEDS: Famotidine/PF 20 mg/2ml Vial SLOW IVP SCH (09:43)
[2020-09-03] MEDS: Dextrose 5%-Lactated Ringers 1,000 ML IV SCH ×2 (09:43→21:20)
[2020-09-03] MEDS: Silver Sulfadiazine 50 GM JAR TP SCH (09:44)
[2020-09-03] MEDS: Enoxaparin Sodium 40 MG/0.4 ML SYRINGE SC SCH (09:44)
--- NOTE | 2020-09-03 10:43 | PDOC.HOSPP ---
- Subjective Encounter Date: 09/03/20 Encounter Time: 09:00 Subjective: pt seen on f/u for hypothermia altered mental state and kirsty. firs time seeing patient. was accompanied by patient's nurse. she states patient today is more alert and awake than in previous days. she does repot yesterday patient seemed to have aspirated, speech was consulted and patient failted test. NGT was tried to placed on multiple occasions w/o success - Objective Vital Signs & Weight: Vital Signs (12 hours) Temp Pulse Resp BP Pulse Ox 09/03/20 07:53 97.5 F L 76 18 155/93 H 97 Weight Admit Weight 145 lb Weight 145 lb Most Recent Monitor Data Heart Rate from ECG 78 NIBP 129/82 NIBP BP-Mean 97 Respiration from ECG 13 SpO2 100 I&O: 09/02/20 09/03/20 09/04/20 06:59 06:59 06:59 Intake Total 2163 49 Output Total 1715 2150 Balance 448 -2101 Result Diagrams: 09/03/20 07:51 09/03/20 04:09 Additional Labs: Accuchecks 09/03/20 09/03/20 09/03/20 06:02 04:58 00:52 POC Glucose 192 H 68 L 75 09/02/20 09/02/20 09/02/20 19:39 16:55 14:13 POC Glucose 81 101 H 109 H 09/02/20 11:22 POC Glucose 88 Hospitalist ROS - Review of Systems ROS unobtainable: due to mental status - Medication Medications: Active Medications Generic Name Dose Route Start Last Admin Trade Name Freq PRN Reason Stop Dose Admin Acetaminophen 650 mg 08/30/20 19:41 09/02/20 08:29 Acetaminophen 325 Mg Tab PO 650 mg Q4H PRN Administration Headache/Fever/Mild Pain (1-3) Dextrose/Water 25 gm 09/02/20 14:09 09/03/20 05:17 Dextrose 50% Abboject 50 Ml Syringe SLOW IVP 25 gm PRN PRN Administration Hypoglycemia Enoxaparin Sodium 40 mg 09/03/20 09:00 09/03/20 09:44 Enoxaparin Sodium 40 Mg/0.4 Ml Syringe SC Not Given 0900 TARAN Famotidine 20 mg 09/01/20 09:00 09/03/20 09:43 Famotidine/Pf 20 Mg/2ml Vial SLOW IVP 20 mg DAILY TARAN Administration Dextrose/Lactated Ringer's 1,000 mls @ 75 mls/hr 09/01/20 12:30 09/03/20 09:43 D5 Lr IV 1,000 mls .[id number] TARAN Administration Silver Sulfadiazine 0 gm 09/01/20 09:00 09/03/20 09:44 Silver Sulfadiazine 50 Gm Jar TP 4 each QAM TARAN Administration Hospitalist Exam Vitals: Vital Signs (12 hours) Temp Pulse Resp BP Pulse Ox 09/03/20 07:53 97.5 F L 76 18 155/93 H 97 Weight Admit Weight 145 lb Weight 145 lb Most Recent Monitor Data Heart Rate from ECG 78 NIBP 129/82 NIBP BP-Mean 97 Respiration from ECG 13 SpO2 100 General Appearance: ill appearing Eye: PERRL, anicteric sclera ENT: normocephalic atraumatic Neck: supple, symmetric, no JVD Heart: RRR, no murmur, no gallops Respiratory: rhonchi Gastrointestinal: soft, non-tender, non-distended Extremities: no cyanosis, no clubbing, no edema Skin: normal turgor, no lesions, no rashes Neurological: no new deficit Musculoskeletal: normal tone, no muscle wasting Psychiatric: not oriented Hosp A/P (1) AMS (altered mental status) Code(s): R41.82 - ALTERED MENTAL STATUS, UNSPECIFIED Status: Acute (2) Failure to thrive in adult Status: Acute (3) Skin lesions Code(s): L98.9 - DISORDER OF THE SKIN AND SUBCUTANEOUS TISSUE, UNSPECIFIED Status: Acute (4) Dementia Code(s): F03.90 - UNSPECIFIED DEMENTIA WITHOUT BEHAVIORAL DISTURBANCE Status: Chronic Qualifiers: Dementia type: unspecified type Dementia behavioral disturbance: with behavioral disturbance Qualified Code(s): F03.91 - Unspecified dementia with behavioral disturbance (5) Hypothermia Code(s): T68.XXXA - HYPOTHERMIA, INITIAL ENCOUNTER Status: Resolved (6) KIRSTY (acute kidney injury) Code(s): N17.9 - ACUTE KIDNEY FAILURE, UNSPECIFIED Status: Acute - Plan Hypothermia - likely from environmental exposure - resolved Possible seizure -Neurology consult -EEG was negative for seizures, showed moderate generalized nonspecific cerebral dysfunction. Sepsis - ruled out - his cultures are negative, and the hypotension was likely from volume depletion, and exposure Dementia - stable and chronic dysphagia - failed swallow test 09/02/20 - multiple attemtps for ngt placement failed - possible dobhoff placement today - candidate for PEG tube once POA is decided - possible aspiration yesteday, will get cxr, no signs of infection at the moment Skin lesions - ? etiology- they could be 2nd degree blevins ( Use of space heater? ) KIRSTY- stable - continue Hydration - resolved Hypoglycemia- better -fluids D5NS at 75ml/hr -Remodeler consulted -Accuchecks Q4 hrs. difficult living / family situation. family service caseworker on case
--- NOTE | 2020-09-03 12:13 | RAD ---
Exam: Chest one view HISTORY:Aspiration Comparison: 08/30/2020 FINDINGS: Cardiac silhouette:Cardiomegaly. Stable dual lead left-sided transvenous pacemaker Aorta: Unremarkable Pulmonary vessels: Normal Costophrenic angles: Bilateral pleural effusions LUNGS: Interval development of increased interstitial and alveolar opacities in the lung bases. Pneumothorax: None Osseous abnormalities: None IMPRESSION: Interval bibasilar pleural and parenchymal changes. Correlate for volume overload versus aspiration pneumonitis.
[2020-09-04] MEDS ORDERED: Enoxaparin Sodium 40 MG/0.4 ML SYRINGE ONE (09:00)
[2020-09-04] MEDS ORDERED: Famotidine/PF 20 mg/2ml Vial ONE (09:00)
--- NOTE | 2020-09-04 09:22 | PDOC.HOSPP ---
- Subjective Encounter Date: 09/04/20 Encounter Time: 09:00 Subjective: Patient seen with nurse. Patient a little more alert and responsive this morning. Hard to understand but sounded like he said he was feeling fine when asked how he was. They have not been able to get an NG tube down. - Objective Vital Signs & Weight: Vital Signs (12 hours) Temp Pulse Resp BP Pulse Ox 09/04/20 00:12 97.9 F 78 18 154/85 H 100 Weight Admit Weight 145 lb Weight 145 lb Most Recent Monitor Data Heart Rate from ECG 78 NIBP 129/82 NIBP BP-Mean 97 Respiration from ECG 13 SpO2 100 I&O: 09/03/20 09/04/20 09/05/20 06:59 06:59 06:59 Intake Total 49 0 Output Total 3929 4354 Balance -7239 -1680 Result Diagrams: 09/03/20 07:51 09/03/20 04:09 Additional Labs: Accuchecks 09/04/20 09/03/20 09/03/20 00:15 20:34 16:18 POC Glucose 87 87 80 09/03/20 10:55 POC Glucose 94 Hospitalist ROS - Review of Systems ROS unobtainable: due to mental status - Medication Medications: Active Medications Generic Name Dose Route Start Last Admin Trade Name Freq PRN Reason Stop Dose Admin Acetaminophen 650 mg 08/30/20 19:41 09/02/20 08:29 Acetaminophen 325 Mg Tab PO 650 mg Q4H PRN Administration Headache/Fever/Mild Pain (1-3) Dextrose/Water 25 gm 09/02/20 14:09 09/03/20 05:17 Dextrose 50% Abboject 50 Ml Syringe SLOW IVP 25 gm PRN PRN Administration Hypoglycemia Enoxaparin Sodium 40 mg 09/03/20 09:00 09/03/20 09:44 Enoxaparin Sodium 40 Mg/0.4 Ml Syringe SC Not Given 09 TARAN Famotidine 20 mg 09/01/20 09:00 09/03/20 09:43 Famotidine/Pf 20 Mg/2ml Vial SLOW IVP 20 mg DAILY TARAN Administration Dextrose/Lactated Ringer's 1,000 mls @ 75 mls/hr 09/01/20 12:30 09/03/20 21:20 D5 Lr IV 1,000 mls .[id number] TARAN Administration Silver Sulfadiazine 0 gm 09/01/20 09:00 09/03/20 09:44 Silver Sulfadiazine 50 Gm Jar TP 4 each QAM [facility] Administration Hospitalist Exam Vitals: Vital Signs (12 hours) Temp Pulse Resp BP Pulse Ox 09/04/20 00:12 97.9 F 78 18 154/85 H 100 Weight Admit Weight 145 lb Weight 145 lb Most Recent Monitor Data Heart Rate from ECG 78 NIBP 129/82 NIBP BP-Mean 97 Respiration from ECG 13 SpO2 100 General Appearance: NAD General - other findings: Arousable ENT: moist mucosa Heart: RRR, no murmur, no gallops, no rubs Respiratory: CTAB, no wheezes, no rales, no ronchi Gastrointestinal: soft, non-tender, non-distended, normal bowel sounds Skin - other findings: Blevins to head and extremities with dressings in place Psychiatric: oriented to person. negative: oriented to place, oriented to time Hosp A/P - Plan Hypothermia - likely from environmental exposure - resolved Possible seizure -Neurology consulted -EEG was negative for seizures, showed moderate generalized nonspecific cerebral dysfunction. Sepsis - ruled out - his cultures are negative, and the hypotension was likely from volume depletion, and exposure Dementia - stable and chronic dysphagia - failed swallow test 09/02/20 - multiple attemtps for ngt placement failed - possible dobhoff placement when able - candidate for PEG tube once POA is decided - possible aspiration yesteday, CXR with new bibasilar infiltrates vs. volume loss, check WBC count, no evidence infection at this time Skin lesions - ? etiology- they could be 2nd degree blevins ( Use of space heater? ) KIRSTY- stable - continue Hydration - resolved Hypoglycemia- better -fluids D5NS at 75ml/hr -Health Science Writer consulted, will need to start tube feeds if we can get feeding tube in -Accuchecks Q4 hrs. difficult living / family situation. piano case and bench assembler on case
[2020-09-04] MEDS ORDERED: Morphine 2 MG/ML VIAL SLOW IVP PRN ×2 (10:17→10:19)
[2020-09-04] MEDS: Dextrose 5%-Lactated Ringers 1,000 ML IV SCH (11:30)
[2020-09-04] MEDS: Silver Sulfadiazine 50 GM JAR TP SCH (11:30)
[2020-09-04] MEDS: Enoxaparin Sodium 40 MG/0.4 ML SYRINGE SC SCH (16:30)
[2020-09-04 16:31] LABS: Anion Gap 10 mmol/L (10-20); BUN (Urea Nitrogen) 11 mg/dL (8.4-25.7); Calc. Creatinine Clearance 42 mL/min (70-130); Calcium 8.2 mg/dL (7.8-10.44); Carbon Dioxide 26 mmol/L (23-31); Chloride 113 mmol/L (98-107); Glucose 94 mg/dL (83-110); Potassium 3.4 mmol/L (3.5-5.1); Sodium 146 mmol/L (136-145)
[2020-09-04] MEDS: Famotidine/PF 20 mg/2ml Vial SLOW IVP SCH (16:33)
[2020-09-05] MEDS: Dextrose 5%-Lactated Ringers 1,000 ML IV SCH ×2 (00:04→12:50)
[2020-09-05 06:58] LABS: Anion Gap 12 mmol/L (10-20); BUN (Urea Nitrogen) 9 mg/dL (8.4-25.7); Calc. Creatinine Clearance 51 mL/min (70-130); Calcium 8.2 mg/dL (7.8-10.44); Carbon Dioxide 24 mmol/L (23-31); Chloride 113 mmol/L (98-107); Glucose 87 mg/dL (83-110); Potassium 3.6 mmol/L (3.5-5.1); Sodium 145 mmol/L (136-145)
[2020-09-05 07:04] LABS: #Eosinphils 0.3 thou/uL (0.0-0.7); #Lymphocytes 1.5 thou/uL (1.20-3.40); #Monocytes 0.4 thou/uL (0.11-0.59); #Neutrophils 3.9 thou/uL (1.40-6.50); %Basophils 0.5 % (0.0-1.0); %Eosinophils 4.5 % (0.0-10.0); %Lymphocytes 23.9 % (21.0-51.0); %Monocytes 6.6 % (0.0-10.0); %Neutrophils 64.6 % (42.0-75.0); Hemoglobin 11.3 g/dL (14.0-18.0); Mean Corpuscular HGB CONC 31.7 g/dL (32.0-36.0); Mean Corpuscular Volume 88.3 fL (78.0-98.0); Mean Platelet Volume 10.3 fL (7.4-10.4); Platelet Count 89 thou/uL (130-400); RBC Distribution Width 16.7 % (11.5-14.5); Red Blood Cell (RBC) Count 4.05 mill/uL (4.70-6.10); White Blood Cell (WBC) Count 6.1 thou/uL (4.8-10.8)
--- NOTE | 2020-09-05 07:54 | PDOC.HOSPP ---
- Subjective Encounter Date: 09/05/20 Encounter Time: 11:00 Subjective: Patient continues to perk up. Patient aspirated while on honey thickened liquids so at this time he is n.p.o. No events overnight. - Objective Vital Signs & Weight: Vital Signs (12 hours) Temp Pulse Resp BP BP Pulse Ox 09/05/20 05:42 97.5 F L 72 18 167/96 H 100 09/04/20 20:00 97.9 F 69 18 145/91 H 100 Weight Admit Weight 145 lb Weight 143 lb 3.2 oz Most Recent Monitor Data Heart Rate from ECG 78 NIBP 129/82 NIBP BP-Mean 97 Respiration from ECG 13 SpO2 100 I&O: 09/04/20 09/05/20 09/06/20 06:59 06:59 06:59 Intake Total 0 0 Output Total 1375 950 Balance -1375 -950 Result Diagrams: 09/05/20 06:13 09/05/20 06:13 Additional Labs: Accuchecks 09/05/20 09/04/20 09/04/20 04:41 23:59 20:29 POC Glucose 85 78 73 09/04/20 09/04/20 09/04/20 11:59 08:09 05:02 POC Glucose 84 84 88 Hospitalist ROS - Review of Systems ROS unobtainable: due to mental status - Medication Medications: Active Medications Generic Name Dose Route Start Last Admin Trade Name Freq PRN Reason Stop Dose Admin Acetaminophen 650 mg 08/30/20 19:41 09/02/20 08:29 Acetaminophen 325 Mg Tab PO 650 mg Q4H PRN Administration Headache/Fever/Mild Pain (1-3) Dextrose/Water 25 gm 09/02/20 14:09 09/03/20 05:17 Dextrose 50% Abboject 50 Ml Syringe SLOW IVP 25 gm PRN PRN Administration Hypoglycemia Enoxaparin Sodium 40 mg 09/03/20 09:00 09/04/20 16:30 Enoxaparin Sodium 40 Mg/0.4 Ml Syringe SC Not Given 0900 TARAN Famotidine 20 mg 09/01/20 09:00 09/04/20 16:33 Famotidine/Pf 20 Mg/2ml Vial SLOW IVP Not Given DAILY TARAN Dextrose/Lactated Ringer's 1,000 mls @ 75 mls/hr 09/01/20 12:30 09/05/20 00:04 D5 Lr IV 1,000 mls .[id number] TARAN Administration Silver Sulfadiazine 0 gm 09/01/20 09:00 09/04/20 11:30 Silver Sulfadiazine 50 Gm Jar TP 4 each QAM [facility] Administration Hospitalist Exam Vitals: Vital Signs (12 hours) Temp Pulse Resp BP BP Pulse Ox 09/05/20 05:42 97.5 F L 72 18 167/96 H 100 09/04/20 20:00 97.9 F 69 18 145/91 H 100 Weight Admit Weight 145 lb Weight 143 lb 3.2 oz Most Recent Monitor Data Heart Rate from ECG 78 NIBP 129/82 NIBP BP-Mean 97 Respiration from ECG 13 SpO2 100 General Appearance: NAD, awake alert ENT: moist mucosa Heart: RRR, no murmur, no gallops, no rubs Respiratory: CTAB, no wheezes, no rales, no ronchi Gastrointestinal: soft, non-tender, non-distended, normal bowel sounds Skin - other findings: Blevins to head and extremities with dressings in place clean dry and intact Psychiatric: normal affect, normal behavior, oriented to person. negative: oriented to place, oriented to time Psychiatric - other findings: A little more responsive and talkative Hosp A/P - Plan Hypothermia - likely from environmental exposure - resolved Possible seizure -Neurology consulted -EEG was negative for seizures, showed moderate generalized nonspecific cerebral dysfunction. Sepsis - ruled out - his cultures are negative, and the hypotension was likely from volume depletion, and exposure Dementia - stable and chronic Dysphagia - failed swallow test 09/02/20 - multiple attemtps for ngt placement failed - possible dobhoff placement when able - candidate for PEG tube once POA is decided - possible aspiration over the weekend, CXR with new bibasilar infiltrates vs. volume loss, check WBC count, no evidence infection at this time Patient remains n.p.o. at this time Skin lesions - ? etiology- they could be 2nd degree blevins ( Use of space heater? ) KIRSTY-resolved - continue Hydration - resolved Hypoglycemia- better -fluids D5NS at 75ml/hr -Assessment Consultant consulted, will need to start tube feeds if we can get feeding tube in -Accuchecks Q4 hrs. difficult living / family situation. manager of case management on case. Still no MPOA identified
[2020-09-05] MEDS: Famotidine/PF 20 mg/2ml Vial SLOW IVP SCH (09:41)
[2020-09-05] MEDS: Silver Sulfadiazine 50 GM JAR TP SCH (09:41)
[2020-09-05] MEDS: Enoxaparin Sodium 40 MG/0.4 ML SYRINGE SC SCH (09:41)
[2020-09-06] MEDS: Dextrose 5%-Lactated Ringers 1,000 ML IV SCH ×3 (04:52→20:52)
[2020-09-06] MEDS: Famotidine/PF 20 mg/2ml Vial SLOW IVP SCH (10:45)
[2020-09-06] MEDS: Silver Sulfadiazine 50 GM JAR TP SCH (10:46)
--- NOTE | 2020-09-06 11:15 | PDOC.HOSPP ---
- Subjective Encounter Date: 09/06/20 Encounter Time: 13:00 Subjective: No events overnight. Patient still n.p.o. as he is not safe to swallow. This morning patient was looking up at the ceiling [id number] like he was hallucinating. Still interactive but can't understand most of what he says. - Objective Vital Signs & Weight: Vital Signs (12 hours) Temp Pulse Resp BP Pulse Ox 09/06/20 10:38 97.3 F L 75 18 166/81 H 100 09/06/20 03:40 97.5 F L 09/06/20 03:04 96.1 F L 76 16 164/94 H 100 09/05/20 23:25 97.4 F L 74 15 152/95 H 100 Weight Admit Weight 145 lb Weight 149 lb 6.4 oz Most Recent Monitor Data Heart Rate from ECG 78 NIBP 129/82 NIBP BP-Mean 97 Respiration from ECG 13 SpO2 100 I&O: 09/05/20 09/06/20 09/07/20 06:59 06:59 06:59 Intake Total 0 900 Output Total 950 1252 Balance -950 -352 Result Diagrams: 09/05/20 06:13 09/05/20 06:13 Additional Labs: Accuchecks 09/06/20 09/06/20 09/05/20 03:34 00:14 20:01 POC Glucose 87 97 80 09/05/20 12:47 POC Glucose 83 Hospitalist ROS - Review of Systems ROS unobtainable: due to mental status - Medication Medications: Active Medications Generic Name Dose Route Start Last Admin Trade Name Freq PRN Reason Stop Dose Admin Acetaminophen 650 mg 08/30/20 19:41 09/02/20 08:29 Acetaminophen 325 Mg Tab PO 650 mg Q4H PRN Administration Headache/Fever/Mild Pain (1-3) Dextrose/Water 25 gm 09/02/20 14:09 09/03/20 05:17 Dextrose 50% Abboject 50 Ml Syringe SLOW IVP 25 gm PRN PRN Administration Hypoglycemia Enoxaparin Sodium 40 mg 09/03/20 09:00 09/05/20 09:41 Enoxaparin Sodium 40 Mg/0.4 Ml Syringe SC Not Given 0900 TARAN Famotidine 20 mg 09/01/20 09:00 09/06/20 10:45 Famotidine/Pf 20 Mg/2ml Vial SLOW IVP 20 mg DAILY TARAN Administration Dextrose/Lactated Ringer's 1,000 mls @ 75 mls/hr 09/01/20 12:30 09/06/20 04:52 D5 Lr IV 1,000 mls .[id number] TARAN Administration Silver Sulfadiazine 0 gm 09/01/20 09:00 09/06/20 10:46 Silver Sulfadiazine 50 Gm Jar TP 1 each QAM TARAN Administration Sodium Chloride 10 ml 09/02/20 13:45 09/05/20 19:52 Flush - Normal Saline 10 Ml Syringe IVF 10 ml PRN PRN Administration Saline Flush Hospitalist Exam Vitals: Vital Signs (12 hours) Temp Pulse Resp BP Pulse Ox 09/06/20 10:38 97.3 F L 75 18 166/81 H 100 09/06/20 03:40 97.5 F L 09/06/20 03:04 96.1 F L 76 16 164/94 H 100 09/05/20 23:25 97.4 F L 74 15 152/95 H 100 Weight Admit Weight 145 lb Weight 149 lb 6.4 oz Most Recent Monitor Data Heart Rate from ECG 78 NIBP 129/82 NIBP BP-Mean 97 Respiration from ECG 13 SpO2 100 General Appearance: NAD, awake alert ENT: moist mucosa Heart: RRR, no murmur, no gallops, no rubs Respiratory: CTAB, no wheezes, no rales, no ronchi Gastrointestinal: soft, non-tender, non-distended, normal bowel sounds Skin - other findings: Blevins with dressings in place clean dry and intact Psychiatric: oriented to person. negative: oriented to place, oriented to time Hosp A/P - Plan Hypothermia- resolved - likely from environmental exposure - resolved Possible seizureruled out -Neurology consulted -EEG was negative for seizures, showed moderate generalized nonspecific cerebral dysfunction. Sepsis - ruled out - his cultures are negative, and the hypotension was likely from volume deplet ion, and exposure Dementia - stable and chronic Dysphagia - failed swallow test 09/02/20 - multiple attemtps for ngt placement failed - possible dobhoff placement when able - candidate for PEG tube once POA is decided - possible aspiration over the weekend, CXR with new bibasilar infiltrates vs. volume loss, check WBC count, no evidence infection at this time Patient remains n.p.o. at this time, will start PPN while awaiting determination of medical power of trust and estates attorney Skin lesions - ? etiology- they could be 2nd degree blevins ( Use of space heater? ) Continue wound care KIRSTY-resolved - continue Hydration - resolved Hypoglycemia- better -fluids D5NS at 75ml/hr -Management Tech consulted, will need to start tube feeds if we can get feeding tube in, for now will start PPN -Accuchecks Q4 hrs. difficult living / family situation. ed case manager on case. Still no MPOA identified. Will need to make a decision soon about PEG versus eating with risks.
[2020-09-06] MEDS: Enoxaparin Sodium 40 MG/0.4 ML SYRINGE SC SCH (13:52)
[2020-09-06] MEDS: Dextrose 50% Abboject 50 ML SYRINGE SLOW IVP PRN (17:17)
[2020-09-07] MEDS: Famotidine/PF 20 mg/2ml Vial SLOW IVP SCH (09:40)
[2020-09-07] MEDS: Dextrose 5%-Lactated Ringers 1,000 ML IV SCH (10:44)
[2020-09-07] MEDS: Enoxaparin Sodium 40 MG/0.4 ML SYRINGE SC SCH (10:52)
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
[2020-09-07] MEDS ORDERED: Dextrose 70% in Water 71.43 ML, PREMASOL 10% 425 ML, Sterile Water Injection 503.57 ML IV SCH (18:15)
[2020-09-08 09:46] LABS: #Eosinphils 0.3 thou/uL (0.0-0.7); #Lymphocytes 1.3 thou/uL (1.20-3.40); #Monocytes 0.3 thou/uL (0.11-0.59); %Basophils 0.3 % (0.0-1.0); %Eosinophils 3.3 % (0.0-10.0); %Lymphocytes 14.7 % (21.0-51.0); %Monocytes 3.2 % (0.0-10.0); %Neutrophils 78.5 % (42.0-75.0); Hemoglobin 10.9 g/dL (14.0-18.0); Mean Corpuscular HGB CONC 31.9 g/dL (32.0-36.0); Mean Corpuscular Hemoglobin 27.8 pg (27.0-31.0); Mean Corpuscular Volume 87.1 fL (78.0-98.0); Mean Platelet Volume 9.6 fL (7.4-10.4); Platelet Count 112 thou/uL (130-400); RBC Distribution Width 16.7 % (11.5-14.5); Red Blood Cell (RBC) Count 3.93 mill/uL (4.70-6.10)
[2020-09-08] MEDS: Enoxaparin Sodium 40 MG/0.4 ML SYRINGE SC SCH (09:46)
[2020-09-08] MEDS: Famotidine/PF 20 mg/2ml Vial SLOW IVP SCH (09:49)
[2020-09-08 09:53] LABS: Anion Gap 11 mmol/L (10-20); BUN (Urea Nitrogen) 7 mg/dL (8.4-25.7); Calc. Creatinine Clearance 60 mL/min (70-130); Calcium 7.8 mg/dL (7.8-10.44); Carbon Dioxide 29 mmol/L (23-31); Chloride 101 mmol/L (98-107); Glucose 77 mg/dL (83-110); Potassium 3.5 mmol/L (3.5-5.1); Sodium 137 mmol/L (136-145)
[2020-09-08] MEDS ORDERED: [UNRECOGNIZED DRUG - OTHER] IV SCH (14:15)
[2020-09-08] MEDS ORDERED: ADMIXTURE FEE IV SCH (14:15)
[2020-09-08] MEDS ORDERED: WATER IV SCH (14:15)
[2020-09-08] MEDS ORDERED: PREMASOL IV SCH (14:15)
[2020-09-08] MEDS ORDERED: DEXTROSE IV SCH (14:15)
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
--- NOTE | 2020-09-08 15:57 | PDOC.EVN ---
Event Note - Event Note Event Note: Patient's son indicated to the patient's nurse that he would like Mr. Onofre to be Full Code. Will accommodate that and ask Palliative Care Team to follow up.
[2020-09-08] MEDS: Mirtazapine 15 MG TAB PO SCH ×2 (20:15→21:45)
[2020-09-09] MEDS: Famotidine/PF 20 mg/2ml Vial SLOW IVP SCH (09:03)
[2020-09-09] MEDS: Enoxaparin Sodium 40 MG/0.4 ML SYRINGE SC SCH (09:03)
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
--- NOTE | 2020-09-09 17:29 | RAD ---
KUB: 09/09/2020 HISTORY: Constipation FINDINGS: There is stool overlying the ascending colon and rectum. Supine imaging limits assessment f or free intraperitoneal air and small bowel obstruction. The bowel gas pattern appears nonobstructed. There is lower lumbar spine degenerative change and degenerative change of both hips. Partially imaged lung bases demonstrate hazy pleural and parenchymal opacity. IMPRESSION: KUB as above.
--- NOTE | 2020-09-09 17:54 | EKG ---
Test Reason : Blood Pressure : / mmHG Vent. Rate : 065 BPM Atrial Rate : 052 BPM P-R Int : 000 ms QRS Dur : 192 ms QT Int : 652 ms P-R-T Axes : 000 -85 085 degrees QTc Int : 678 ms Ventricular-paced rhythm Abnormal ECG No ST elevation/WV No Sgarbossa Confirmed by DANA ACUNA M.D. ([id number]), film or videotape editor ALVIN BENJAMIN ([id number]) on 09/09/2020 5:54:21 PM Referred By: Confirmed By:DANA ACUNA M.D.
[2020-09-09] MEDS: Mirtazapine 15 MG TAB PO SCH (20:42)
[2020-09-10] MEDS: Dextrose 50% Abboject 50 ML SYRINGE SLOW IVP PRN (07:37)
[2020-09-10 07:42] LABS: #Eosinphils 0.3 thou/uL (0.0-0.7); #Lymphocytes 1.3 thou/uL (1.20-3.40); #Monocytes 0.4 thou/uL (0.11-0.59); #Neutrophils 4.8 thou/uL (1.40-6.50); %Basophils 0.2 % (0.0-1.0); %Eosinophils 4.2 % (0.0-10.0); %Monocytes 5.3 % (0.0-10.0); %Neutrophils 71.2 % (42.0-75.0); Hemoglobin 9.6 g/dL (14.0-18.0); Mean Corpuscular HGB CONC 32.4 g/dL (32.0-36.0); Mean Corpuscular Hemoglobin 28.2 pg (27.0-31.0); Mean Corpuscular Volume 87.2 fL (78.0-98.0); Mean Platelet Volume 8.6 fL (7.4-10.4); Platelet Count 137 thou/uL (130-400); RBC Distribution Width 16.4 % (11.5-14.5); White Blood Cell (WBC) Count 6.7 thou/uL (4.8-10.8)
[2020-09-10 08:00] LABS: Anion Gap 13 mmol/L (10-20); BUN (Urea Nitrogen) 10 mg/dL (8.4-25.7); Calc. Creatinine Clearance 59 mL/min (70-130); Carbon Dioxide 28 mmol/L (23-31); Chloride 102 mmol/L (98-107); Glucose 66 mg/dL (83-110); Potassium 3.3 mmol/L (3.5-5.1); Sodium 140 mmol/L (136-145)
[2020-09-10] MEDS: Enoxaparin Sodium 40 MG/0.4 ML SYRINGE SC SCH (08:12)
[2020-09-10] MEDS: Famotidine/PF 20 mg/2ml Vial SLOW IVP SCH (09:46)
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
[2020-09-10] MEDS ORDERED: Bisacodyl 10 MG SUPP PR SCH (16:15)
[2020-09-10] MEDS: Mirtazapine 15 MG TAB PO SCH (19:57)
[2020-09-11] MEDS: D5 1/2 NS w/10 mEq KCl 1,000 ML/1,000 ML BAG IV SCH ×2 (01:38→15:53)
[2020-09-11 05:45] VITALS: BMI 19.1
[2020-09-11] MEDS: Enoxaparin Sodium 40 MG/0.4 ML SYRINGE SC SCH (09:25)
[2020-09-11] MEDS: Famotidine/PF 20 mg/2ml Vial SLOW IVP SCH (09:25)
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
[2020-09-11] MEDS: Mirtazapine 15 MG TAB PO SCH (22:15)
[2020-09-12] MEDS: D5 1/2 NS w/10 mEq KCl 1,000 ML/1,000 ML BAG IV SCH ×2 (06:22→18:11)
[2020-09-12] MEDS: Enoxaparin Sodium 40 MG/0.4 ML SYRINGE SC SCH (09:33)
[2020-09-12] MEDS: Famotidine/PF 20 mg/2ml Vial SLOW IVP SCH (09:33)
[2020-09-12 15:54] VITALS: BP 135/64; TEMP 97.4
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
--- NOTE | 2020-09-14 04:31 | PQF ---
CLINICAL DOCUMENTATION CLARIFICATION FORM: Dear : José Miguel Escobedo Date / Time: 09/14/2020 5924 Please exercise your independent, professional judgment in responding to the clarification form. Clinical indicators are provided on the bottom of this form for your review In your clinical opinion based on clinical findings below, can you please identify the etiology of AMS if due to: Please check appropriate box(es): [ ] Hypothermia [ x ] Dementia [ ] Pancytopenia [ ] Other diagnosis, please specify [ ] Unable to determine Physician Signature: Date/Time: For continuity of documentation, please document condition throughout progress notes and discharge summary. Thank You. To be completed by CDI/Coding staff for physician review: Present Clinical Indicators - Signs / Symptoms / Labs Results and Location in Medical Record [x] WBC 2.0, RBC 2.33, hgb 6.5, Hct 20.1, Plt count 115 Laboratory 08/30 [x] BP 93/73, Pulse 61, Resp 12, Temp 95.8 Vital signs 08/30 [x] Pt presented with AMS. Family found naked and confused today H&P p1 08/30 Dr Del Rosario [x] Found hypothermic and hypotensive H&P p1 08/30 Dr Del Rosario [x] Labs showed pancytopenia H&P p1 08/30 Dr Del Rosario [x] Hypothermia likely from environmental exposure DS p1 09/12 Dr Escobedo [x] Based on conversation it appears as though his dementia has progressed DS p1 09/12 Dr Escobedo [x] CT of brain: No acute findings CT of brain 08/30 Present Risk Factors Results and Location in Medical Record [x] 89 year-old Male H&P p1 08/30 Dr Del Rosario [x] DM H&P p1 08/30 Dr Del Rosario [x] CHF H&P p1 08/30 Dr Del Rosario [x] CKD H&P p1 08/30 Dr Del Rosario [x] Dementia H&P p1 08/30 Dr Del Rosario [x] Acute on chronic anemia H&P p6 08/30 Dr Del Rosario Present Treatments Results and Location in Medical Record [x] Transfusion: PRBC Blood bank 08/30 [x] D5 Lr 1L SEP 19 [x] IV Levophed 250 mg SEP 19 [x] IV FNS 1l SEP 19 [x] Warming measures Order 08/30 [x] Neurology Consult Consult 09/01 CDS/Signal Technician Signature: Oneida Moss Phone #: [facility] [id number] Date/Time: 09/14/20 0434 This is a permanent part of the Medical Record [facility]
== END 2020-09-12 19:32 | DRG 922 ==
LOC: ERS 13:14 → CCU 17:00 → 2SE 09-01 17:49
PROVIDERS: ADMIT Internal Medicine; ATTEND Internal Medicine
PROC: 3E033XZ Introduction of Vasopressor into Peripheral Vein, Percutaneous Approach (ICD-10-PCS; principal; 2020-08-30)
PROC: 30233N1 Transfusion of Nonautologous Red Blood Cells into Peripheral Vein, Percutaneous Approach (ICD-10-PCS; 2020-08-30)
PROC: 009U3ZX Drainage of Spinal Canal, Percutaneous Approach, Diagnostic (ICD-10-PCS; 2020-08-30)
DX: T68.XXXA Hypothermia, initial encounter (principal); E43 Unspecified severe protein-calorie malnutrition; G93.41 Metabolic encephalopathy; F03.91 Unspecified dementia, unspecified severity, with behavioral disturbance; T20.35XA Burn of third degree of scalp [any part], initial encounter; T24.301A Burn of third degree of unspecified site of right lower limb, except ankle and foot, initial encounter; I13.0 Hypertensive heart and chronic kidney disease with heart failure and stage 1 through stage 4 chronic kidney disease, or unspecified chronic kidney disease; D61.818 Other pancytopenia; N17.9 Acute kidney failure, unspecified; I42.9 Cardiomyopathy, unspecified; Z68.1 Body mass index [BMI] 19.9 or less, adult; E87.2 Acidosis; Z66 Do not resuscitate; Z20.822 Contact with and (suspected) exposure to COVID-19; E78.5 Hyperlipidemia, unspecified; X16.XXXA Contact with hot heating appliances, radiators and pipes, initial encounter; E86.9 Volume depletion, unspecified; J44.9 Chronic obstructive pulmonary disease, unspecified; N18.2 Chronic kidney disease, stage 2 (mild); E11.22 Type 2 diabetes mellitus with diabetic chronic kidney disease; I50.9 Heart failure, unspecified; D50.9 Iron deficiency anemia, unspecified; E87.8 Other disorders of electrolyte and fluid balance, not elsewhere classified; E11.649 Type 2 diabetes mellitus with hypoglycemia without coma; R13.10 Dysphagia, unspecified; Z79.899 Other long term (current) drug therapy; X31.XXXA Exposure to excessive natural cold, initial encounter; Z79.82 Long term (current) use of aspirin; Z79.84 Long term (current) use of oral hypoglycemic drugs; Z78.1 Physical restraint status
CPT/HCPCS: 36415; 36416; 36430; 36556; 36600; 51702; 62270; 70450; 70487; 71045; 72125; 74018; 80048; 80053; 80202; 80306; 80307; 81003; 82533; 82550; 82805; 82945; 83605; 83735; 84157; 84443; 84484; 85025; 85610; 86850; 86900; 86901; 87040; 87070; 87086; 87205; 89051; 93005; 95712; 95816; 95819; 95957; 96365; 96366; 96368; 96374; 96375; 96376; J0692; J1650; J1720; J1940; J2310; J3370; J3475; J3480; J3490; J7030; P9016; P9047; Q9967; S0028; U0002

== ENCOUNTER 2020-09-18 12:51 | Inpatient (IN) | payer MEDICARE, MEDICAID ==
[2020-09-18 13:40] LABS: Hemoglobin 9.5 g/dL (14.0-18.0); Mean Corpuscular HGB CONC 31.9 g/dL (32.0-36.0); Mean Corpuscular Hemoglobin 28.3 pg (27.0-31.0); Mean Corpuscular Volume 88.9 fL (78.0-98.0); Mean Platelet Volume 8.7 fL (7.4-10.4); Platelet Count 140 thou/uL (130-400); RBC Distribution Width 16.4 % (11.5-14.5); Red Blood Cell (RBC) Count 3.36 mill/uL (4.70-6.10); White Blood Cell (WBC) Count 2.3 thou/uL (4.8-10.8)
[2020-09-18 13:59] LABS: Anisocytosis SLIGHT = 6-15 cells (100X) (0-5/hpf); Band 52 % (5-11); Hypochromia SLIGHT = 6-15 cells (100X) (0-5/hpf); Lymphocytes 20 % (21-51); MDiff Complete? YES; Metamyelocyte 2 % (0-0); Monocytes 4 % (0-10); Neutrophil 16 % (42-75); Platelet Morphology Comment Appears Adequate; Reactive Lymphocytes 6 % (0-10); Target Cells SLIGHT = 2-5 cells (100X) (0-1/hpf); Tear Drops SLIGHT = 2-5 cells (100X) (0-1/hpf)
[2020-09-18 14:04] LABS: Bilirubin Negative (Negative); Blood, Urine Negative (Negative); Clarity Clear (Clear); Glucose, Urine (Dipstick) Normal (Negative); Ketone, Urine 10 mg/dL (Negative); Leukocyte Negative Leu/uL (Negative); Nitrite Negative (Negative); Protein, Urine (Dipstick) 20 mg/dL (Neg-Trace); Specific Gravity, Urine 1.018 (1.002-1.036)
--- NOTE | 2020-09-18 14:09 | CT ---
CT HEAD WITHOUT IV CONTRAST COMPARISON: 08/30/2020 HISTORY: Altered mental status. TECHNIQUE: Axial CT imaging at 5 mm intervals from vertex through skull base without contrast FINDINGS: There is decreased attenuation in the periventricular white matter which is nonspecific but likely re flective of chronic small vessel ischemic changes. There is mild cerebral volume loss. The ventricular system is normal in size, shape, and position for the degree of sulcal atrophy. There is no evidence of an acute infarction, hemorrhage, mass effect, or midline shift. Skull base has a normal CT appearance. Minimal mucosal thickening is seen in a few ethmoidal air cells bilaterally. Mastoid air cells are cl ear. Osseous structures appear intact. There is scalp soft tissue swelling seen in the posterior superior parietal region. IMPRESSION: 1. No acute intracranial abnormality demonstrated. 2. Chronic small vessel ischemic changes and cerebral volume loss. 3. Scalp soft tissue swelling posterior parietal region.
[2020-09-18 14:14] LABS: Amphetamine Not Detected (NotDetected); Barbiturates Screen Not Detected (NotDetected); Benzodiazepine Screen Not Detected (NotDetected); Cocaine Metabolite Screen Not Detected (NotDetected); Medtox Control Line Valid? VALID (VALID); Medtox Reader # READER 4; Methadone Not Detected (NotDetected); Methamphetamine Not Detected (NotDetected); Opiate Screen Not Detected (NotDetected); Oxycodone Screen Not Detected (NotDetected); Phencyclidine (PCP) Not Detected (NotDetected); THC/Cannabinoid Screen Not Detected (NotDetected); Tricyclic Screen Not Detected (NotDetected)
--- NOTE | 2020-09-18 14:17 | RAD ---
EXAM: CHEST ONE VIEW HISTORY: Altered mental status. COMPARISON: 09/03/2020 FINDINGS: Dual lead left subclavian cardiac pacemaking device is again noted in place. Cardiac silhouette is ma gnified by projection but does appear mildly enlarged. There are increased perihilar interstitial opacities which could be related to pulmonary edema or infectious process. Bilateral pleural and pare nchymal lung changes are also again seen which may be related to bilateral pleural effusions and associated atelectasis. Superimposed pneumonia at either lung base would be difficult to exclude. Ost eopenia is present. A remote fracture distal left clavicle is again noted. No other interval change. IMPRESSION: 1. Bilateral perihilar interstitial opacities which may be related to pulmonary edema versus infectio us process. 2. Bibasilar pleural and parenchymal lung changes likely due to bilateral pleural effusions and atele ctasis. Superimposed pneumonia at either lung base would be difficult to exclude. 3. Continued follow-up to resolution is recommended.
[2020-09-18 14:19] LABS: ALT (SGPT) 15 U/L (8-55); AST (SGOT) 48 U/L (5-34); Albumin 2.7 g/dL (3.4-4.8); Alkaline Phosphatase 140 U/L (40-110); Anion Gap 17 mmol/L (10-20); BUN (Urea Nitrogen) 8 mg/dL (8.4-25.7); Bilirubin, Total 0.7 mg/dL (0.2-1.2); Calc. Creatinine Clearance 0 mL/min (70-130); Calcium 7.7 mg/dL (7.8-10.44); Carbon Dioxide 25 mmol/L (23-31); Chloride 107 mmol/L (98-107); Globulin 4.3 g/dL (2.4-3.5); Glucose 89 mg/dL (83-110); Potassium 4.9 mmol/L (3.5-5.1); Sodium 144 mmol/L (136-145)
[2020-09-18] MEDS ORDERED: Sodium Chloride 0.9% 100 ML ONE (14:41)
[2020-09-18] MEDS ORDERED: Cefepime 2 GM VIAL ONE (14:41)
[2020-09-18] MEDS ORDERED: Vancomycin 1 GM/200 ML BAG ONE (15:21)
[2020-09-18 15:32] LABS: Acetaminophen Less than 6.0 mcg/mL (10.0-30.0); Alcohol Less than 10 mg/dL (Less than 10); CK (CPK) 71 U/L (30-200); Lipase 18 U/L (8-78); Salicylate Less than 8.0 mg/dL (15.0-30.0)
--- NOTE | 2020-09-18 16:24 | PDOC.HHP ---
Hospitalist HPI Altered mentation History of Present Illness: Progress patient is a 89-year-old male with dementia and recent hospitalization from 08/30-09/12 was brought in from [facility] with altered mentation. He was discharged from this facility on 09/12 [facility]. He is currently on pured diet with honey thick liquid due to swallowing difficulty. Please refer to the discharge summary for details on the recent hospitalization. Patient was found to have altered mentation since last night per long term staff. He is normally alert awake oriented x1. No history is available from the patient due to current mentation., His initial vital signs show temperature In the emergency room 86.3 axillary, respiration of 12, pulse rate of 61 with a blood pressure of 112/73 with O2 saturation of 99% on room air. His EKG showed paced rhythm. Chest x-ray showed bilateral perihilar interstitial opacities wi th likely bilateral pleural effusion. CT scan of the head was negative for acute abnormality. He received IV fluids, Levaquin, cefepime and vancomycin in the emergency room. He was placed on Bebeto hugger. Allergies/Adverse Reactions: Allergy/AdvReac Type Severity Reaction Status Date / Time No Known Drug Allergies Allergy Verified 09/19/20 03:10 Home Medications: Medication Instructions Recorded Confirmed Type Cyanocobalamin (Vitamin B-12) 1,000 mcg PO DAILY #30 tab 08/17/20 09/19/20 Rx [Vitamin B-12] Folic Acid [Folvite] 1 mg PO DAILY #30 tab 08/17/20 09/19/20 Rx Mirtazapine [Remeron] 15 mg PO HS tab 09/12/20 09/19/20 Rx Ipratropium/Albuterol Sulfate 3 ml NEB Q4H PRN 09/19/20 09/19/20 History [DuoNeb] Past History: PAST MEDICAL HISTORY: Dementia, swallowing dysfunction, recent hospitalization for hypothermia with acute kidney injury and hypoglycemia, congestive heart failure, CKD 2, AV block requiring pacemaker, diabetes mellitus type 2, chronic anemia, abdominal aortic aneurysm, PAST SURGICAL HISTORY: Unable to obtain due to current mentation SOCIAL HISTORY: Residing at snf facility for last 1 week. Patient's daughter is the decision-maker. He was made DNR last admission. No current use of tobacco or drug use reported he has history of occasional alcohol use in the past FAMILY HISTORY: Cannot be obtained due to current mentation Hospitalist HPI ROS ROS unobtainable: due to mental status Hospitalist Exam General Appearance: ill appearing Eye: anicteric sclera Eye - other findings: Patient not cooperating with eye examination ENT: normocephalic atraumatic, no oropharyngeal lesions Neck: supple, symmetric, no JVD Heart: RRR, no gallops, no rubs, diminshed peripheral pulses Respiratory: no wheezes, no tachypnea, rhonchi Respiratory - other findings: Bibasilar rales Gastrointestinal: soft, no guarding, no rigidity, diminished bowl sounds Extremities: no cyanosis, no clubbing Extremities - other findings: RLE dressing + Skin - other findings: Neurology/psychiatry examination limited due to current mentation Hospitalist Results Result Diagrams: 09/19/20 05:19 09/19/20 03:50 Lab results: Laboratory Last Values WBC 2.3 thou/uL (4.8-10.8) L 09/18/20 13:20 RBC 3.36 mill/uL (4.70-6.10) L 09/18/20 13:20 Hgb 9.5 g/dL (14.0-18.0) L 09/18/20 13:20 Hct 29.9 % (42.0-52.0) L 09/18/20 13:20 MCV 88.9 fL (78.0-98.0) 09/18/20 13:20 MCH 28.3 pg (27.0-31.0) 09/18/20 13:20 MCHC 31.9 g/dL (32.0-36.0) L 09/18/20 13:20 RDW 16.4 % (11.5-14.5) H 09/18/20 13:20 Plt Count 140 thou/uL (130-400) 09/18/20 13:20 MPV 8.7 fL (7.4-10.4) 09/18/20 13:20 Neutrophils % (Manual) 16 % (42-75) L 09/18/20 13:20 Band Neuts % (Manual) 52 % (5-11) H 09/18/20 13:20 Lymphocytes % (Manual) 20 % (21-51) L 09/18/20 13:20 Reactive Lymphs % 6 % (0-10) 09/18/20 13:20 Monocytes % (Manual) 4 % (0-10) 09/18/20 13:20 Metamyelocytes % (Man) 2 % (0-0) H 09/18/20 13:20 Lymphocytes # Not Reportable 09/18/20 13:20 Hypochromia SLIGHT = 6-15 cells (100X) (0-5/hpf) 09/18/20 13:20 Plt Morphology Comment Appears Adequate 09/18/20 13:20 Anisocytosis SLIGHT = 6-15 cells (100X) (0-5/hpf) 09/18/20 13:20 Target Cells SLIGHT = 2-5 cells (100X) (0-1/hpf) 09/18/20 13:20 Tear Drop Cells SLIGHT = 2-5 cells (100X) (0-1/hpf) 09/18/20 13:20 Acanthocytes (Spur) SLIGHT = 1-5 cells (100X) (None Seen) 09/18/20 13:20 Sodium 144 mmol/L (136-145) 09/18/20 13:20 Potassium 4.9 mmol/L (3.5-5.1) 09/18/20 13:20 Chloride 107 mmol/L (98-107) 09/18/20 13:20 Carbon Dioxide 25 mmol/L (23-31) 09/18/20 13:20 Anion Gap 17 mmol/L (10-20) 09/18/20 13:20 BUN 8 mg/dL (8.4-25.7) L 09/18/20 13:20 Creatinine 1.04 mg/dL (0.7-1.3) 09/18/20 13:20 Estimated GFR (MDRD) 82 09/18/20 13:20 Glucose 89 mg/dL (83-110) 09/18/20 13:20 POC Glucose 77 mg/dL (70-100) 09/18/20 13:54 Calcium 7.7 mg/dL (7.8-10.44) L 09/18/20 13:20 Total Bilirubin 0.7 mg/dL (0.2-1.2) 09/18/20 13:20 AST 48 U/L (5-34) H 09/18/20 13:20 ALT 15 U/L (8-55) 09/18/20 13:20 Alkaline Phosphatase 140 U/L (40-110) H 09/18/20 13:20 Ammonia 23 umol/L (18-72) 09/18/20 14:36 Creatine Kinase 71 U/L (30-200) 09/18/20 13:20 Troponin I 0.018 ng/mL (< 0.028) 09/18/20 13:20 B-Natriuretic Peptide 1666.3 pg/mL (0-100) H 09/18/20 13:20 Serum Total Protein 7.0 g/dL (5.8-8.1) 09/18/20 13:20 Albumin 2.7 g/dL (3.4-4.8) L 09/18/20 13:20 Globulin 4.3 g/dL (2.4-3.5) H 09/18/20 13:20 Albumin/Globulin Ratio 0.6 g/dL (1.2-2.2) L 09/18/20 13:20 Lipase 18 U/L (8-78) 09/18/20 13:20 TSH 3rd Generation 1.6966 uIU/mL (0.35-4.94) 09/18/20 13:20 Urine Color Yellow (Yellow) 09/18/20 13:44 Urine Clarity Clear (Clear) 09/18/20 13:44 Urine pH 6.0 (5.0-9.0) 09/18/20 13:44 Ur Specific [place] 1.018 (1.002-1.036) 09/18/20 13:44 Urine Protein 20 mg/dL (Neg-Trace) 09/18/20 13:44 Urine Glucose (UA) Normal mg/dL (Negative) 09/18/20 13:44 Urine Ketones 10 mg/dL (Negative) A 09/18/20 13:44 Urine Blood Negative (Negative) 09/18/20 13:44 Urine Nitrite Negative (Negative) 09/18/20 13:44 Urine Bilirubin Negative (Negative) 09/18/20 13:44 Urine Urobilinogen 2.0 mg/dL (Less than 2) A 09/18/20 13:44 Ur Leukocyte Esterase Negative Rebekah/uL (Negative) 09/18/20 13:44 Salicylates Less than 8.0 mg/dL (15.0-30.0) L 09/18/20 13:20 Urine Opiates Screen Not Detected (NotDetected) 09/18/20 13:44 Ur Oxycodone Screen Not Detected (NotDetected) 09/18/20 13:44 Urine Methadone Screen Not Detected (NotDetected) 09/18/20 13:44 Ur Propoxyphene Screen Not Detected (NotDetected) 09/18/20 13:44 Acetaminophen Less than 6.0 mcg/mL (10.0-30.0) L 09/18/20 13:20 Ur Barbiturates Screen Not Detected (NotDetected) 09/18/20 13:44 Ur Tricyclics Screen Not Detected (NotDetected) 09/18/20 13:44 Ur Phencyclidine Scrn Not Detected (NotDetected) 09/18/20 13:44 Ur Amphetamines Screen Not Detected (NotDetected) 09/18/20 13:44 U Methamphetamines Scrn Not Detected (NotDetected) 09/18/20 13:44 U Benzodiazepines Scrn Not Detected (NotDetected) 09/18/20 13:44 U Cocaine Metab Screen Not Detected (NotDetected) 09/18/20 13:44 U Cannabinoids Screen Not Detected (NotDetected) 09/18/20 13:44 Drug Screen Comment () 09/18/20 13:44 Plasma Alcohol Less than 10 mg/dL (Less than 10) 09/18/20 13:20 Other Status: image reviewed by me Additional Comments: I reviewed EKG, chest x-ray and CT brain as discussed above. Hospitalist H&P A/P Plan: 89-year-old male with dementia with recent hospitalization for acute kidney injury with hypothermia presenting with altered mentation with hypothermia from snf facility. Patient has leukopenia with 52% bandemia. His creatinine is normal at 1.04. BNP is elevated at 1666 compared to 402 months ago. Urinalysis was negative for WBC or bacteria. Patient had extensive work- up during the recent hospitalization. He has swallowing dysfunction and PEG tube was declined. Severe sepsis with toxic metabolic encephalopathy and severe hypothermia Patient will be monitored in IMCU. Chest CT will be obtained. A KUB will be obtained as well. Patient will be started on empiric antibiotics. Patient probably has aspiration pneumonia. Covid 19 will be ruled out. Will consult infectious disease. Palliative care will be consulted.. We will continue warming. Monitor neurochecks. Repeat troponin. He has history of folic acid and vitamin B12 deficiency which will be checked. A.m. labs will be ordered. Patient will be kept n.p.o. Blood sugar will be monitored Chronic diastolic heart failure with severely elevated BNP Echocardiogram was obtained and 06/09. Patient has significant hypoalbuminemia that may be contributing to third spacing. His blood pressure is stable at this time. Will monitor fluid status closely. Gentle hydration will be started for now Diabetes mellitus type 2 Blood sugars will be monitored. He will be started on insulin sliding scale Dementia We will resume home medications once verified Swallow dysfunction Please refer to recent discharge summary. PEG tube was declined last admission CKD stage II Avoid nephrotoxic agent Daughter was updated. She agrees with the above plan of care.
[2020-09-18] MEDS ORDERED: Ondansetron PF 4 MG/2 ML Vial IVP PRN (16:55)
[2020-09-18] MEDS ORDERED: Insulin Regular 300 UNITS/3 ML VIAL SC PRN (16:55)
[2020-09-18] MEDS ORDERED: Bisacodyl 10 MG SUPP PR PRN (16:58)
[2020-09-18] MEDS ORDERED: Senokot S 8.6-50 MG TAB PO PRN (16:58)
--- NOTE | 2020-09-18 17:06 | RAD ---
KUB: 09/18/2020 COMPARISON: 09/09/2020 HISTORY: Decreased bowel sounds FINDINGS: Portable supine radiograph of the abdomen provided. The superior and right aspect of the ab domen is not fully imaged. There is a paucity of bowel gas limiting detailed assessment. No dilated gas-filled bowel is noted. Fluid-filled bowel cannot be excluded. Supine imaging limits assessment fo r small bowel obstruction and free intraperitoneal air. There are degenerative changes within the spine and hips. IMPRESSION: KUB as detailed above.
[2020-09-18 17:13] LABS: SARS-CoV-2 NAA Rapid Test Not Detected (NotDetected)
[2020-09-18] MEDS ORDERED: Dextrose 5 % And 0.9 % NaCl 1,000 ML IV SCH (17:15)
[2020-09-18 17:34] LABS: INR-International Normal Ratio 1.2; PTT 61.5 sec (22.9-36.1); Prothrombin Time 15.6 sec (12.0-14.7)
[2020-09-18] MEDS ORDERED: Acetaminophen 650 MG Suppository PR PRN (17:35)
[2020-09-18 17:47] LABS: Lactic Acid 1.5 mmol/L (0.5-2.2)
[2020-09-18] MEDS ORDERED: Meropenem 1 GM in Sodium Chloride 0.9% 100 ML IVPB SCH (18:00)
--- NOTE | 2020-09-18 20:10 | CT ---
CT CHEST WITHOUT CONTRAST: History: Sepsis, pneumonia. FINDINGS: Absence of IV contrast reduces the sensitivity of the exam, particularly for evaluation of mediastina l, hilar, and vascular structures. There are moderate sized bilateral pleural effusions with adjacent areas of consolidation/atelectatic changes. No pneumothoraces are seen. No pericardial effusion is noted. There are vascular calcifications with incomplete visualization of a large abdominal aortic aneurysm seen on the CTA of 02-01-2020. No thoracic aortic aneurysm is seen. There are degenerative changes in the spine. IMPRESSION: Moderate sized bilateral pleural effusions and adjacent consolidation/infiltrative changes. POS: OFF
[2020-09-18] MEDS ORDERED: Aspirin 300 MG Suppository PR SCH (21:00)
[2020-09-18] MEDS ORDERED: Famotidine/PF 20 mg/2ml Vial ONE (21:59)
[2020-09-18] MEDS ORDERED: Aspirin 300 MG Suppository ONE (21:59)
[2020-09-18] MEDS: Famotidine/PF 20 mg/2ml Vial SLOW IVP SCH (22:11)
--- NOTE | 2020-09-19 00:02 | PDOC.BPN ---
- Brief Progress Note Encounter Date: 09/19/20 Patient was admitted on account of sepsis and was to go to IMCU. Patient is DNR and temperature significantly improved with bear bethgger. His blood pressure is also stable Still remains ANO x1 Given his improvement in limited IMCU space we will downgrade to telemetry We will continue close monitoring and upgrade if indicated
[2020-09-19] MEDS ORDERED: MEROPENEM 1 GM/50 ML 1 GM in Premix Bag 1 BAG IVPB SCH ×2 (02:00→09:00)
[2020-09-19 02:16] VITALS: BMI 22.6
[2020-09-19] MEDS ORDERED: Dextrose 50% Abboject 50 ML SYRINGE ONE (02:31)
[2020-09-19 04:33] LABS: ALT (SGPT) 11 U/L (8-55); AST (SGOT) 27 U/L (5-34); Albumin 2.3 g/dL (3.4-4.8); Alkaline Phosphatase 122 U/L (40-110); Anion Gap 14 mmol/L (10-20); BUN (Urea Nitrogen) 10 mg/dL (8.4-25.7); Bilirubin, Total 0.5 mg/dL (0.2-1.2); Calc. Creatinine Clearance 41 mL/min (70-130); Calcium 7.4 mg/dL (7.8-10.44); Carbon Dioxide 19 mmol/L (23-31); Chloride 113 mmol/L (98-107); Globulin 3.6 g/dL (2.4-3.5); Glucose 106 mg/dL (83-110); Magnesium 1.5 mg/dL (1.6-2.6); Potassium 3.4 mmol/L (3.5-5.1); Protein, Total 5.9 g/dL (5.8-8.1); Sodium 143 mmol/L (136-145)
[2020-09-19 04:52] LABS: Phosphorus 1.8 mg/dL (2.3-4.7)
[2020-09-19] MEDS ORDERED: Electrolyte Replacement Protocol 1 EACH FS PRN (05:27)
[2020-09-19] MEDS ORDERED: Magnesium 2 GM/50 ML 2 GM in Premix Bag 1 BAG IVPB SCH (05:30)
[2020-09-19] MEDS ORDERED: Potassium Chloride 20 MEQ in Premix Bag 1 BAG IVPB SCH (05:30)
[2020-09-19 05:51] LABS: Band 54 % (5-11); Eosinophils 1 % (0-10); Hemoglobin 8.1 g/dL (14.0-18.0); Lymphocytes 14 % (21-51); MDiff Complete? YES; Mean Corpuscular HGB CONC 32.2 g/dL (32.0-36.0); Mean Corpuscular Hemoglobin 28.1 pg (27.0-31.0); Mean Corpuscular Volume 87.2 fL (78.0-98.0); Mean Platelet Volume 8.4 fL (7.4-10.4); Monocytes 6 % (0-10); Neutrophil 25 % (42-75); Platelet Count 158 thou/uL (130-400); RBC Distribution Width 16.5 % (11.5-14.5); Red Blood Cell (RBC) Count 2.88 mill/uL (4.70-6.10); White Blood Cell (WBC) Count 4.9 thou/uL (4.8-10.8)
[2020-09-19] MEDS ORDERED: Potassium Phosphate 15 MMOL in Sodium Chloride 0.9% 250 ML 250 ML IVPB SCH (06:15)
[2020-09-19] MEDS ORDERED: PHOS-NAK 1 PKT PACK PO SCH (06:15)
--- NOTE | 2020-09-19 07:53 | RAD ---
Portable frontal chest radiograph: 09/19/2020 COMPARISON: 09/18/2020 HISTORY: Shortness of breath FINDINGS: Stable dense pleural and parenchymal opacity in the lung bases. Heart and mediastinal conto urs are stable. Stable dual lead transvenous pacing device. No pneumothorax is evident. IMPRESSION: Persistent dense pleural and parenchymal opacity in the lung bases, likely related to pul monary edema. Infectious pneumonitis or aspiration in the lung bases cannot be excluded. Follow-up imaging advised to document resolution.
[2020-09-19] MEDS ORDERED: Enoxaparin Sodium 30 MG/0.3 ML SYRINGE SC SCH (09:00)
[2020-09-19] MEDS: Famotidine/PF 20 mg/2ml Vial SLOW IVP SCH (09:03)
--- NOTE | 2020-09-19 09:34 | PDOC.HOSPP ---
- Subjective Encounter Date: 09/19/20 Encounter Time: 11:30 non-verbal Subjective: Patient with eyes open but not really. Responding his oxygen saturations have been dropping this morning into the 80s. Palliative care has discussed with the family and they want to transition to hospice. - Objective Vital Signs & Weight: Vital Signs (12 hours) Temp Pulse Resp BP Pulse Ox 09/19/20 08:00 96.9 F L 77 23 H 82/40 L 98 09/19/20 03:45 97.2 F L 89 22 H 100/45 L 100 09/19/20 02:30 97.6 F 87 20 87/53 L 96 Weight Weight 139 lb 15.896 oz Result Diagrams: 09/19/20 05:19 09/19/20 03:50 Additional Labs: Accuchecks 09/19/20 09/19/20 09/18/20 08:01 03:08 18:24 POC Glucose 75 144 H 108 H 09/18/20 13:54 POC Glucose 77 Hospitalist ROS - Review of Systems ROS unobtainable: due to mental status - Medication Medications: Active Medications Generic Name Dose Route Start Last Admin Trade Name Freq PRN Reason Stop Dose Admin Aspirin 300 mg 09/18/20 21:00 09/18/20 22:06 Aspirin 300 Mg Suppository [place] 300 mg 2100 TARAN Administration Enoxaparin Sodium 30 mg 09/19/20 09:00 09/19/20 09:02 Enoxaparin Sodium 30 Mg/0.3 Ml Syringe SC 30 mg 0900 TARAN Administration Famotidine 20 mg 09/18/20 21:00 09/19/20 09:03 Famotidine/Pf 20 Mg/2ml Vial SLOW IVP 20 mg Q12HR TARAN Administration Dextrose/Sodium Chloride 1,000 mls @ 50 mls/hr 09/18/20 17:15 09/18/20 22:34 D5 0.9% Ns IV 1,000 mls .Q20H TARAN Administration Meropenem 1 gm/ Device 50 mls @ 200 mls/hr 09/19/20 09:00 09/19/20 09:02 IVPB 50 mls Q12HR TARAN Administration Hospitalist Exam Vitals: Vital Signs (12 hours) Temp Pulse Resp BP Pulse Ox 09/19/20 08:00 96.9 F L 77 23 H 82/40 L 98 09/19/20 03:45 97.2 F L 89 22 H 100/45 L 100 09/19/20 02:30 97.6 F 87 20 87/53 L 96 Weight Weight 139 lb 15.896 oz General Appearance: ill appearing General - other findings: Patient in mild respiratory distress with very shallow breaths ENT: dry oral mucosa Heart: RRR, no murmur, no gallops, no rubs Respiratory: no tachypnea Respiratory - other findings: Shallow breaths with poor air movement bilaterally Gastrointestinal: soft, non-tender, non-distended, normal bowel sounds Neurological - other findings: Not moving extremities to command Psychiatric - other findings: Eyes open but not responding Hosp A/P - Plan 89-year-old male with dementia with recent hospitalization for acute kidney injury with hypothermia presenting with altered mentation with hypothermia from nursing home facility. Patient has leukopenia with 52% bandemia. His creatinine is normal at 1.04. BNP is elevated at 1666 compared to 402 months ago. Urinalysis was negative for WBC or bacteria. Patient had extensive work- up during the recent hospitalization. He has swallowing dysfunction and PEG tube was declined. Severe sepsis with toxic metabolic encephalopathy and severe hypothermia Patient will be monitored in IMCU. Chest CT will be obtained. A KUB will be obtained as well. Patient will be started on empiric antibiotics with meropenem and vancomycin. Patient probably has aspiration pneumonia. Covid 19 negative. Will consult infectious disease. Palliative care will be consulted.. We will continue warming. Monitor neurochecks. Repeat troponin. He has history of folic acid and vitamin B12 deficiency which will be checked. A.m. labs will be ordered. Patient will be kept n.p.o. Blood sugar will be monitored Chronic diastolic heart failure with severely elevated BNP Echocardiogram was obtained and 06/09. Patient has significant hypoalbuminemia that may be contributing to third spacing. His blood pressure is stable at this time. Will monitor fluid status closely. Gentle hydration will be started for now. Concern for possibility of PE. We will check D-dimer. Diabetes mellitus type 2 Blood sugars will be monitored. He is on sliding scale insulin. Dementia We will resume home medications once verified Swallow dysfunction Please refer to recent discharge summary. PEG tube was declined last admission CKD stage II Avoid nephrotoxic agent Disposition: Palliative care consulted and discussed patient's prognosis with the family and they determined to switch patient to inpatient hospice.
[2020-09-19 11:53] VITALS: BP 94/39; TEMP 96.8
--- NOTE | 2020-09-19 13:44 | PDOC.DS.DS ---
Provider Date of Admission: 09/18/20 14:54 Date of Discharge: 09/19/20 Admitting Provider: Josep Kaiser MD Consultations: None Primary Care Physician: LEA Francois Course Hospital Course: This is an 89-year-old male with a history of dementia and progressive dysphagia recently hospitalized due to aspiration pneumonia. Family had refused PEG tube placement. He had been at SNF facility for about 1 week and he became altered. He was seen in the emergency room and noted to be severely hypothermic with evidence of sepsis and large bilateral pleural effusions with likely infection. Patient was treated with antibiotics and fluids and put on a bear hugger. He had worsening respiratory status the next day. Palliative care did discuss patient's decline with the family and family determined to transition patient to inpatient hospice. Resuscitation Status: 09/18/20 17:37 Resuscitation Status Routine Resuscitation Status: DNAR: NO Resuscitation Discussed with: verified with daughter Ms Kelly Lab Results: 09/19/20 05:19 09/19/20 03:50 Abnormal Lab Results - Last 48 hrs 09/18/20 13:20: BUN 8 L, Calcium 7.7 L, AST 48 H, Alkaline Phosphatase 140 H, Albumin 2.7 L, Globulin 4.3 H, Albumin/Globulin Ratio 0.6 L 09/18/20 13:20: WBC 2.3 L, RBC 3.36 L, Hgb 9.5 L, Hct 29.9 L, MCHC 31.9 L, RDW 16.4 H, Neutrophils % (Manual) 16 L, Band Neuts % (Manual) 52 H, Lymphocytes % (Manual) 20 L 09/18/20 13:20: Salicylates Less than 8.0 L, Acetaminophen Less than 6.0 L 09/18/20 13:20: B-Natriuretic Peptide 1666.3 H 09/18/20 13:44: Urine Ketones 10 A, Urine Urobilinogen 2.0 A 09/18/20 16:55: C-Reactive Protein 15.08 H 09/18/20 17:02: Vitamin B12 Greater than 2000 H 09/18/20 17:17: PT 15.6 H, APTT 61.5 H 09/19/20 03:50: Potassium 3.4 L, Chloride 113 H, Carbon Dioxide 19 L, Calcium 7.4 L, Phosphorus 1.8 L, Magnesium 1.5 L, Alkaline Phosphatase 122 H, Albumin 2.3 L, Globulin 3.6 H, Albumin/Globulin Ratio 0.6 L 09/19/20 05:19: RBC 2.88 L, Hgb 8.1 L, Hct 25.1 L, RDW 16.5 H, Neutrophils % (Manual) 25 L, Band Neuts % (Manual) 54 H, Lymphocytes % (Manual) 14 L 09/19/20 10:04: D-Dimer 4.59 H Microbiology - Entire Visit 09/18/20 13:20 Venous blood - Right Arm Blood Culture - Preliminary Specimen has been received and culture in progress. No Growth to date. 09/18/20 13:20 Venous blood - Left Hand Blood Culture - Preliminary Specimen has been received and culture in progress. No Growth to date. 09/18/20 13:44 Urine teixeira catheter Urine Culture - Preliminary NO GROWTH AT 24 HOURS Vitals: Vital Signs (12 hours) Temp Pulse Resp BP Pulse Ox 09/19/20 11:52 96.8 F L 72 23 H 94/39 L 85 L 09/19/20 08:00 96.9 F L 77 23 H 82/40 L 98 09/19/20 03:45 97.2 F L 89 22 H 100/45 L 100 09/19/20 02:30 97.6 F 87 20 87/53 L 96 Weight Admit Weight 139 lb 15.84 oz Weight 139 lb 15.896 oz Physical Exam: The patient was seen and examined on the day of discharge. Problem Assessment: Severe sepsis with toxic metabolic encephalopathy and severe hypothermia Chronic diastolic heart failure with severely elevated BNP Acute respiratory failure with hypoxia Diabetes mellitus type 2 Dementia Swallow dysfunction CKD stage II Plan of Treatment: Discharged to inpatient hospice Time Spent in discharge related activities (mins): 30 Plan Home Medications: Medication Instructions Recorded Confirmed Type Cyanocobalamin (Vitamin B-12) 1,000 mcg PO DAILY #30 tab 08/17/20 09/19/20 Rx [Vitamin B-12] Folic Acid [Folvite] 1 mg PO DAILY #30 tab 08/17/20 09/19/20 Rx Mirtazapine [Remeron] 15 mg PO HS tab 09/12/20 09/19/20 Rx Ipratropium/Albuterol Sulfate 3 ml NEB Q4H PRN 09/19/20 09/19/20 History [DuoNeb] Allergies: No Known Drug Allergies Allergy (Verified 09/19/20 03:10) Referrals: Tiffani Leigh FNP [Primary Care Provider] - Disposition: [facility] Quality CORE MEASURES:: N/A
[2020-09-19] MEDS ORDERED: Vancomycin 1 GM in Premix Bag 1 BAG IVPB SCH (15:00)
[2020-09-19] MEDS ORDERED: Mirtazapine 15 MG TAB PO SCH (21:00)
[2020-09-20] MEDS ORDERED: Folic Acid 1 MG TAB PO SCH (09:00)
[2020-09-20] MEDS ORDERED: Cyanocobalamin (Vitamin B-12) 1,000 MCG TAB PO SCH (09:00)
== END 2020-09-19 13:45 | disposition hospice, inpatient (51) | DRG 871 ==
LOC: ERS 12:51 → ERHOLD 14:54 → 2NO 09-19 01:56
PROVIDERS: ADMIT Internal Medicine; ATTEND Emergency Medicine
DX: A41.9 Sepsis, unspecified organism (principal); G92 Toxic encephalopathy; J69.0 Pneumonitis due to inhalation of food and vomit; J96.01 Acute respiratory failure with hypoxia; I50.32 Chronic diastolic (congestive) heart failure; I13.0 Hypertensive heart and chronic kidney disease with heart failure and stage 1 through stage 4 chronic kidney disease, or unspecified chronic kidney disease; J90 Pleural effusion, not elsewhere classified; Z66 Do not resuscitate; R65.20 Severe sepsis without septic shock; N18.2 Chronic kidney disease, stage 2 (mild); D64.9 Anemia, unspecified; E88.09 Other disorders of plasma-protein metabolism, not elsewhere classified; E11.22 Type 2 diabetes mellitus with diabetic chronic kidney disease; F03.90 Unspecified dementia, unspecified severity, without behavioral disturbance, psychotic disturbance, mood disturbance, and anxiety; E78.5 Hyperlipidemia, unspecified; I50.9 Heart failure, unspecified; J44.9 Chronic obstructive pulmonary disease, unspecified; Z79.899 Other long term (current) drug therapy; Z79.51 Long term (current) use of inhaled steroids; Z95.0 Presence of cardiac pacemaker; Z20.822 Contact with and (suspected) exposure to COVID-19
CPT/HCPCS: 0240U; 36415; 36416; 70450; 71045; 71250; 74018; 80053; 80306; 80307; 81003; 82140; 82550; 82607; 82746; 83605; 83690; 83735; 83880; 84100; 84443; 84484; 85025; 85379; 85610; 85730; 86140; 87040; 87086; 93005; J0692; J1650; J1956; J2185; J3370; J3475; J3490; J7050; S0028

== ENCOUNTER 2020-09-19 13:55 | Inpatient (IN) | payer OTHER ==
[2020-09-19] MEDS ORDERED: Lorazepam 2 MG/ML VIAL SLOW IVP PRN (16:11)
[2020-09-19] MEDS ORDERED: Acetaminophen 650 MG Suppository PR PRN (16:15)
[2020-09-19] MEDS ORDERED: Ondansetron PF 4 MG/2 ML Vial IVP PRN (16:15)
[2020-09-19] MEDS ORDERED: Scopolamine 1.5 mg/72 hour Patch TOP PRN (16:15)
[2020-09-19] MEDS ORDERED: Sodium Chloride 0.9% 1,000 ML IV SCH (16:15)
[2020-09-19] MEDS: Lorazepam 2 MG/ML VIAL SLOW IVP PRN (17:12)
[2020-09-19] MEDS: Morphine 4 MG/ML VIAL SLOW IVP PRN (17:13)
[2020-09-20 20:40] VITALS: TEMP 97.5
[2020-09-20] MEDS: Morphine 2 MG/ML VIAL SLOW IVP PRN (21:46)
[2020-09-21] MEDS: Lorazepam 2 MG/ML VIAL SLOW IVP PRN (10:07)
[2020-09-21] MEDS: Morphine 2 MG/ML VIAL SLOW IVP PRN (14:32)
[2020-09-22 07:26] VITALS: BP 95/58
[2020-09-22] MEDS: Morphine 2 MG/ML VIAL SLOW IVP PRN (09:02)
[2020-09-22] MEDS: Morphine 4 MG/ML VIAL SLOW IVP PRN (14:44)
== END 2020-09-22 15:19 | disposition hospice, inpatient (51) | DRG 951 ==
LOC: 2NO 13:55 → T4-B 09-20 14:41
PROVIDERS: ADMIT Family Medicine; ATTEND Family Medicine
DX: Z51.5 Encounter for palliative care (principal); R65.20 Severe sepsis without septic shock; A41.9 Sepsis, unspecified organism; G93.41 Metabolic encephalopathy; J90 Pleural effusion, not elsewhere classified; I50.32 Chronic diastolic (congestive) heart failure; Z66 Do not resuscitate; F03.90 Unspecified dementia, unspecified severity, without behavioral disturbance, psychotic disturbance, mood disturbance, and anxiety; N18.2 Chronic kidney disease, stage 2 (mild); E11.22 Type 2 diabetes mellitus with diabetic chronic kidney disease; D64.9 Anemia, unspecified; Z79.899 Other long term (current) drug therapy; Z79.51 Long term (current) use of inhaled steroids
CPT/HCPCS: J2060; J2270